=== PATIENT | female | born 1950 | race Caucasian/White ===

== ENCOUNTER → 2017-11-02 15:25 | Outpatient (CLI) | payer MEDICARE, OTHER, SELFPAY ==
[2017-11-02 17:19] LABS: Absolute Lymphocyte Count 3.08 X10^3/ul (0.83-4.51); Absolute Neutrophil Count 4.6 X10^3/uL (2.0-7.7); Basophil# 0.04 X10^3/uL; Basophil% 0.5 % (0-1); Eosinophils% 1.2 % (0-5); Hematocrit 43.3 % (37-47); Lymphocyte # 3.08 X10^3/ul (4.0); Lymphocyte % 36.1 % (19-41); Mean Corp Hgb Conc 32.3 g/gl (32-36); Mean Corpuscular Hgb 29.6 pg (27.0-32.0); Mean Corpuscular Volume 91.5 fL (81-99); Mean Platelet Vol. 10.7 fl (6.2-12.0); Monocyte# 0.68 X10^3/uL; Neutrophil # 4.57 X10^3/uL (2.7-7.7); Neutrophil % 53.4 % (47-70); Platelet Count 305 K/mm3 (150-450); RBC Distribution Width CV 16.1 % (11.6-14.6); RBC Distribution Width SD 53.4 fl (35.1-43.9); Red Blood Count 4.73 M/mm3 (4.2-5.4); White Blood Count 8.5 K/mm3 (4.4-11.0)
[2017-11-02 17:30] LABS: POSITIVE COUNT NO; POSITIVE DIFFERENTIAL NO; POSITIVE MORPHOLOGY NO
[2017-11-02 17:31] LABS: ALB/GLOB Ratio 0.9 RATIO (0.9-2.4); AST(SGOT) 17 U/L (15-37); Alanine Aminotransfer ALT/SGPT 25 U/L (13-56); Albumin, Serum 3.2 g/dL (3.2-5.0); Alkaline Phosphatase 105 U/L (45-117); Anion Gap 9 (5-15); BUN 24 mg/dL (7-18); BUN/Creat Ratio 19.8 RATIO (10-20); Calcium,Total 8.4 mg/dL (8.5-10.1); Chloride 110 mmol/L (98-107); Creatinine, Serum 1.21 mg/dL (0.55-1.02); EST Glomerular Filtration Rate 47 mL/min (>60); Est Glom Filt Rate - Afr Amer 57 mL/min (>60); Globulin 3.4 g/dL (2.2-4.2); Glucose 87 mg/dL (74-106); Potassium 4.5 mmol/L (3.5-5.1); Protein, Total 6.6 g/dL (6.4-8.2); Sodium Level 142 mmol/L (136-145); Thyroid Stim Hormone (TSH) 1.81 uIU/mL (0.358-3.74)
[2017-11-04 10:39] LABS: Vitamin D,25 Hydroxy 12.2 ng/mL (19.95-100.01)
[2017-11-04 15:01] LABS: Hep C Antibodies <0.1 s/co ratio (0.0-0.9)
== END ==
PROVIDERS: Family Provider Family Medicine Geriatric Medicine; PCP Family Medicine Geriatric Medicine; Visit Provider Family Medicine Geriatric Medicine
DX: I10 Essential (primary) hypertension (principal); E55.9 Vitamin D deficiency, unspecified; Z13.89 Encounter for screening for other disorder
CPT/HCPCS: 36415; 80053; 82306; 84443; 85025; 86803

== ENCOUNTER → 2017-11-10 15:52 | Outpatient (CLI) | payer MEDICARE, OTHER, SELFPAY | PROVIDERS: Family Provider Family Medicine Geriatric Medicine; PCP Family Medicine Geriatric Medicine; Visit Provider Family Medicine Geriatric Medicine | DX: R68.83 Chills (without fever) (principal) | CPT/HCPCS: 87633 ==

== ENCOUNTER → 2018-07-04 12:29 | Outpatient (CLI) | payer MEDICARE, OTHER, SELFPAY ==
[2018-07-04 12:47] LABS: Hematocrit 46.4 % (37-47); Hemoglobin 14.5 g/dl (12.0-15.0); Mean Corp Hgb Conc 31.3 g/gl (32-36); Mean Corpuscular Hgb 29.7 pg (27.0-32.0); Mean Corpuscular Volume 95.1 fL (81-99); Mean Platelet Vol. 10.3 fl (6.2-12.0); Platelet Count 280 K/mm3 (150-450); RBC Distribution Width CV 14.2 % (11.6-14.6); RBC Distribution Width SD 49.7 fl (35.1-43.9); Red Blood Count 4.88 M/mm3 (4.2-5.4); White Blood Count 5.4 K/mm3 (4.4-11.0)
[2018-07-04 13:00] LABS: Absolute Neutrophil Count 3.1 X10^3/uL (2.0-7.7); Basophil# 0.01 X10^3/uL; Basophil% 0.2 % (0-1); Eosinophil# 0.06 X10^3/uL; Eosinophils% 1.1 % (0-5); Monocyte# 0.33 X10^3/uL; Monocyte% 5.9 % (0-10); Neutrophil # 3.13 X10^3/uL (2.7-7.7); Neutrophil % 56.3 % (47-70); POSITIVE COUNT NO; POSITIVE DIFFERENTIAL NO; POSITIVE MORPHOLOGY NO
[2018-07-04 13:01] LABS: Anion Gap 6 (5-15); BUN 14 mg/dL (7-18); BUN/Creat Ratio 12.4 RATIO (10-20); Calcium,Total 8.9 mg/dL (8.5-10.1); Chloride 108 mmol/L (98-107); Creatinine, Serum 1.13 mg/dL (0.55-1.02); EST Glomerular Filtration Rate 51 mL/min (>60); Est Glom Filt Rate - Afr Amer 62 mL/min (>60); Glucose 85 mg/dL (74-106); Potassium 4.3 mmol/L (3.5-5.1); Sodium Level 139 mmol/L (136-145)
--- NOTE | 2018-07-04 14:24 | CT_ITS ---
STUDY: CT ABDOMEN AND PELVIS WITH CONTRAST REASON FOR EXAM: Female, 68 years old. Abdominal pain RADIATION DOSAGE (If Supplied By Facility): CTDIvol = ( 11.43 ) mGy, DLP = ( 965.78 ) mGycm TECHNIQUE: Transaxial images were obtained from the dome of the diaphragm to the symphysis pubis without oral contrast. 100cc ml of Isovue 300 contrast was administered. Sagittal and coronal images were reconstructed. Individualized dose optimization techniques were used for this CT. COMPARISON: CT abdomen and pelvis 08/14/2010 FINDINGS: Body wall soft tissues: No acute process. 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 There is mild scoliosis and osteopenia with otherwise only mild spondylosis of the thoracolumbar spine. Inferior chest: Clear lung bases, normal distal esophagus, minimal sliding hiatal hernia, mild cardiomegaly, no pericardial effusion, epicardial lipomatosis. Hepatobiliary: Moderate intrahepatic biliary ductal ectasia, mild ectasia of the hepatic duct up to 8 mm, common duct normal measuring 6.3 mm. Prior cholecystectomy. No hepatic lesions. The intrahepatic bile duct dilatation is new compared to imaging of 2009. No obstructing lesion or calculus is observed. Pancreas: There is mild pancreatic atrophy without ductal ectasia or focal lesion. Spleen: Normal. Adrenal glands: Normal. Urogenital: Normal kidneys, symmetric nephrograms. Normal collecting systems, ureters, urinary bladder. Uterus absent. No adnexal mass or cyst or pelvic free fluid. Pelvic floor and sidewalls and retroperitoneum: No mass or adenopathy. Vasculature: No acute process. Stomach: No acute process. Small bowel and mesentery: No acute process. Large bowel: Appendix not visible. Possibly surgically absent. No acute inflammatory features in the region of the cecum. Mild sigmoid diverticulosis without diverticulitis. Normal rectum. Free fluid or free air: None. CT/Abdomen/Pelvis WITH Contrast IMPRESSION: Intrahepatic biliary ductal ectasia without ectasia of the hepatic duct or common bile duct without evidence of any focal obstructing lesion. This may be a normal physiologic adaptation over time after cholecystectomy. Correlate relative to symptoms or laboratory values of liver. No other acute abdominopelvic process is evident. Electronically Signed: Zain Smith, at 17:46 EDT Tel , Service support ,
== END ==
PROVIDERS: Family Provider Family Medicine Geriatric Medicine; PCP Family Medicine Geriatric Medicine; Referring Provider Family Medicine Geriatric Medicine; Visit Provider Family Medicine Geriatric Medicine
DX: R10.9 Unspecified abdominal pain (principal); N39.0 Urinary tract infection, site not specified
CPT/HCPCS: 36415; 74177; 80048; 85025; 87086; 87088; Q9967; A4216

== ENCOUNTER → 2018-07-07 08:04 | Outpatient (CLI) | payer MEDICARE, OTHER, SELFPAY ==
--- NOTE | 2018-07-07 08:06 | US_ITS ---
STUDY: ABDOMINAL ULTRASOUND - RIGHT UPPER QUADRANT REASON FOR VISIT: Female, 68 years old. Abdominal pain with radiation towards the back. TECHNIQUE: Ultrasound evaluation of the right upper quadrant was performed with real-time and static so-scale imaging. TECHNICAL QUALITY: Limited. Examination limited due to a combination of factors including obesity and bowel gas. COMPARISON: Comparison is made with prior CT scan of the abdomen dated July 04, 2018. FINDINGS: Liver: The liver measures 13.3 cm. There is normal echogenicity of the liver. The bile ducts are within normal limits. There is hepatic color flow. The direction of portal flow is hepatopetal. There is no demonstrated mass lesion. Gallbladder: The patient is status post cholecystectomy. Common Bile Duct (C.B.D.): The common bile duct measures 9.3 mm. Pancreas: Normal size of the head, body and tail of the pancreas. There is normal echogenicity of the pancreas. There is no demonstrated pancreatic mass or cyst. Right Kidney: Normal size of the right kidney. The right kidney measures 10 cm x 4.7 cm x 4.3 cm. Normal renal cortex. The right cortex measures 1.4 cm. There is no demonstrated renal mass or cyst. There is no right hydronephrosis. US/Liver IMPRESSION: Mildly dilated common bile duct. Electronically Signed: Velasquez Hughes MD at 14:22 EDT Tel [phone], Service support ,
== END ==
PROVIDERS: Family Provider Family Medicine Geriatric Medicine; PCP Family Medicine Geriatric Medicine; Referring Provider Family Medicine Geriatric Medicine; Visit Provider Family Medicine Geriatric Medicine
DX: R10.9 Unspecified abdominal pain (principal)
CPT/HCPCS: 76705

== ENCOUNTER → 2018-11-09 14:15 | Outpatient (CLI) | payer MEDICARE, OTHER, SELFPAY ==
[2017-04-23 10:36] VITALS: BMI 31.9
[2018-11-09 15:28] LABS: Absolute Lymphocyte Count 2.36 X10^3/ul (0.83-4.51); Absolute Neutrophil Count 2.7 X10^3/uL (2.0-7.7); Basophil# 0.02 X10^3/uL; Basophil% 0.4 % (0-1); Eosinophil# 0.07 X10^3/uL; Eosinophils% 1.3 % (0-5); Hematocrit 47.4 % (37-47); Hemoglobin 14.5 g/dl (12.0-15.0); Lymphocyte # 2.36 X10^3/ul (4.0); Lymphocyte % 43.2 % (19-41); Mean Corp Hgb Conc 30.6 g/gl (32-36); Mean Corpuscular Hgb 28.4 pg (27.0-32.0); Mean Corpuscular Volume 92.8 fL (81-99); Mean Platelet Vol. 10.3 fl (6.2-12.0); Monocyte# 0.32 X10^3/uL; Monocyte% 5.9 % (0-10); Neutrophil # 2.66 X10^3/uL (2.7-7.7); Neutrophil % 48.7 % (47-70); POSITIVE COUNT NO; POSITIVE DIFFERENTIAL NO; POSITIVE MORPHOLOGY NO; Platelet Count 254 K/mm3 (150-450); RBC Distribution Width CV 14.1 % (11.6-14.6); RBC Distribution Width SD 47.8 fl (35.1-43.9); Red Blood Count 5.11 M/mm3 (4.2-5.4); White Blood Count 5.5 K/mm3 (4.4-11.0)
[2018-11-09 16:07] LABS: ALB/GLOB Ratio 1.1 RATIO (0.9-2.4); AST(SGOT) 25 U/L (15-37); Alanine Aminotransfer ALT/SGPT 32 U/L (13-56); Albumin, Serum 3.5 g/dL (3.2-5.0); Alkaline Phosphatase 134 U/L (45-117); Anion Gap 11 (5-15); BUN 21 mg/dL (7-18); BUN/Creat Ratio 18.8 RATIO (10-20); Calcium,Total 8.7 mg/dL (8.5-10.1); Chloride 110 mmol/L (98-107); Creatinine, Serum 1.12 mg/dL (0.55-1.02); EST Glomerular Filtration Rate 52 mL/min (>60); Est Glom Filt Rate - Afr Amer 62 mL/min (>60); Globulin 3.2 g/dL (2.2-4.2); Glucose 81 mg/dL (74-106); Potassium 4.2 mmol/L (3.5-5.1); Protein, Total 6.7 g/dL (6.4-8.2); Sodium Level 144 mmol/L (136-145); Thyroid Stim Hormone (TSH) 2.49 uIU/mL (0.358-3.74)
[2018-11-09 16:35] LABS: Vitamin D,25 Hydroxy 8.1 ng/mL (29.95-100.01)
== END ==
PROVIDERS: Family Provider Family Medicine Geriatric Medicine; PCP Family Medicine Geriatric Medicine; Visit Provider Family Medicine Geriatric Medicine
DX: I10 Essential (primary) hypertension (principal); E55.9 Vitamin D deficiency, unspecified
CPT/HCPCS: 36415; 80053; 82306; 84443; 85025

== ENCOUNTER → 2019-04-16 10:36 | Outpatient (CLI) | payer MEDICARE, OTHER, SELFPAY ==
[2017-04-23 10:36] VITALS: BMI 31.9
[2019-04-19 14:08] LABS: Lyme IgG P18 Ab Present (.); Lyme IgG P23 Ab Absent (.); Lyme IgG P28 Ab Present (.); Lyme IgG P30 Ab Absent (.); Lyme IgG P39 Ab Absent (.); Lyme IgG P41 Ab Present (.); Lyme IgG P45 Ab Absent (.); Lyme IgG P58 Ab Absent (.); Lyme IgG P66 Ab Absent (.); Lyme IgG P93 Ab Absent (.); Lyme IgM P23 Ab Absent (.); Lyme IgM P39 Ab Absent (.); Lyme IgM P41 Ab Absent (.)
[2019-04-20 16:00] LABS: Lyme IgG WB Interpretation Negative (.); Lyme IgM WB Interpretation Negative (.)
== END ==
PROVIDERS: Family Provider Family Medicine Geriatric Medicine; PCP Family Medicine Geriatric Medicine; Visit Provider Family Medicine Geriatric Medicine
DX: A69.20 Lyme disease, unspecified (principal)
CPT/HCPCS: 36415; 86617

== ENCOUNTER → 2019-04-20 12:03 | Outpatient (CLI) | payer MEDICARE, OTHER, SELFPAY ==
[2017-04-23 10:36] VITALS: BMI 31.9
[2019-04-20 18:36] LABS: Absolute Lymphocyte Count 2.45 X10^3/uL (0.83-4.51); Absolute Neutrophil Count 2.9 X10^3/uL (2.0-7.7); Basophil# 0.04 X10^3/uL; Basophil% 0.7 % (0-1); Eosinophil# 0.15 X10^3/uL; Eosinophils% 2.5 % (0-5); Hematocrit 49.6 % (37-47); Hemoglobin 15.3 g/dL (12.0-15.0); Lymphocyte # 2.45 X10^3/ul (4.0); Mean Corp Hgb Conc 30.8 g/dL (32-36); Mean Corpuscular Hgb 28.9 pg (27.0-32.0); Mean Corpuscular Volume 93.6 fL (81-99); Mean Platelet Vol. 10.8 fl (6.2-12.0); Monocyte# 0.37 X10^3/uL; Monocyte% 6.2 % (0-10); NRBC Flagged by Analyzer 0 % (0-5); Neutrophil # 2.88 X10^3/uL (2.7-7.7); Neutrophil % 48.3 % (47-70); Platelet Count 287 K/mm3 (150-450); RBC Distribution Width CV 14.5 % (11.6-14.6); RBC Distribution Width SD 49.6 fl (35.1-43.9)
[2019-04-20 19:07] LABS: ALB/GLOB Ratio 1.1 RATIO (0.9-2.4); AST(SGOT) 17 U/L (15-37); Alanine Aminotransfer ALT/SGPT 23 U/L (13-56); Albumin, Serum 3.7 g/dL (3.2-5.0); Alkaline Phosphatase 157 U/L (45-117); Anion Gap 4 (5-15); BUN 19 mg/dL (7-18); BUN/Creat Ratio 15.8 RATIO (10-20); Calcium,Total 9.2 mg/dL (8.5-10.1); Chloride 106 mmol/L (98-107); EST Glomerular Filtration Rate 48 mL/min (>60); Est Glom Filt Rate - Afr Amer 58 mL/min (>60); Globulin 3.5 g/dL (2.2-4.2); Glucose 89 mg/dL (74-106); Potassium 4.5 mmol/L (3.5-5.1); Protein, Total 7.2 g/dL (6.4-8.2); Sodium Level 139 mmol/L (136-145); Thyroid Stim Hormone (TSH) 2.02 uIU/mL (0.358-3.74)
== END ==
PROVIDERS: Family Provider Family Medicine Geriatric Medicine; PCP Family Medicine Geriatric Medicine; Visit Provider Family Medicine Geriatric Medicine
DX: R53.83 Other fatigue (principal)
CPT/HCPCS: 36415; 80053; 84443; 85025

== ENCOUNTER → 2019-06-22 11:38 | Outpatient (CLI) | payer MEDICARE, OTHER, SELFPAY ==
[2017-04-23 10:36] VITALS: BMI 31.9
== END ==
PROVIDERS: Family Provider Family Medicine Geriatric Medicine; PCP Family Medicine Geriatric Medicine; Referring Provider Family Medicine Geriatric Medicine; Visit Provider Family Medicine Geriatric Medicine
DX: R68.83 Chills (without fever) (principal)
CPT/HCPCS: 87633

== ENCOUNTER → 2020-09-18 11:04 | Outpatient (CLI) | payer MEDICARE, OTHER, SELFPAY ==
[2020-08-06 07:34] VITALS: BMI 32.1
[2020-09-18 11:27] LABS: Absolute Lymphocyte Count 2.56 X10^3/uL (0.83-4.51); Basophil# 0.04 X10^3/uL; Basophil% 0.8 % (0-1); Eosinophil# 0.14 X10^3/uL; Eosinophils% 2.7 % (0-5); Hematocrit 44.8 % (37-47); Lymphocyte # 2.56 X10^3/ul (4.0); Lymphocyte % 49.9 % (19-41); Mean Corp Hgb Conc 31.3 g/dL (32-36); Mean Corpuscular Hgb 28.3 pg (27.0-32.0); Mean Corpuscular Volume 90.5 fL (81-99); Monocyte# 0.41 X10^3/uL; NRBC Flagged by Analyzer 0 % (0-5); Neutrophil # 1.95 X10^3/uL (2.7-7.7); Platelet Count 308 K/mm3 (150-450); RBC Distribution Width CV 14.5 % (11.6-14.6); RBC Distribution Width SD 47.5 fl (35.1-43.9); Red Blood Count 4.95 M/mm3 (4.2-5.4); White Blood Count 5.1 K/mm3 (4.4-11.0)
[2020-09-18 11:42] LABS: Vitamin D,25 Hydroxy 18.9 ng/mL
[2020-09-18 11:47] LABS: ALB/GLOB Ratio 1.2 RATIO (0.9-2.4); AST(SGOT) 16 U/L (15-37); Alanine Aminotransfer ALT/SGPT 24 U/L (13-56); Albumin, Serum 3.8 g/dL (3.2-5.0); Alkaline Phosphatase 101 U/L (45-117); Anion Gap 5 (5-15); BUN 21 mg/dL (7-18); BUN/Creat Ratio 17.5 RATIO (10-20); Calcium,Total 8.9 mg/dL (8.5-10.1); Chloride 109 mmol/L (98-107); EST Glomerular Filtration Rate 47 mL/min (>60); Est Glom Filt Rate - Afr Amer 57 mL/min (>60); Globulin 3.2 g/dL (2.2-4.2); Glucose 91 mg/dL (74-106); Potassium 4.5 mmol/L (3.5-5.1); Sodium Level 140 mmol/L (136-145); Thyroid Stim Hormone (TSH) 1.87 uIU/mL (0.358-3.74)
== END ==
PROVIDERS: PCP Family Medicine Geriatric Medicine; Visit Provider Family Medicine Geriatric Medicine
DX: E55.9 Vitamin D deficiency, unspecified (principal); I10 Essential (primary) hypertension
CPT/HCPCS: 36415; 80053; 82306; 84443; 85025

== ENCOUNTER → 2020-09-23 09:54 | Outpatient (CLI) | payer MEDICARE, OTHER, SELFPAY ==
[2020-08-06 07:34] VITALS: BMI 32.1
== END ==
PROVIDERS: PCP Family Medicine Geriatric Medicine; Visit Provider Family Medicine Geriatric Medicine
DX: N39.0 Urinary tract infection, site not specified (principal)
CPT/HCPCS: 87086; 87088

== ENCOUNTER → 2021-05-05 15:05 | Outpatient (CLI) | payer MEDICARE, OTHER, SELFPAY ==
[2021-05-05 18:34] LABS: M R Staph aureus DNA By PCR Negative (Negative); Probe Check PASS; Specimen Processing Control PASS; Staph aureus DNA By PCR NEGATIVE (Negative)
== END ==
PROVIDERS: PCP Family Medicine Geriatric Medicine; Visit Provider Family Medicine Geriatric Medicine
DX: T14.90XA Injury, unspecified, initial encounter (principal); B95.62 Methicillin resistant Staphylococcus aureus infection as the cause of diseases classified elsewhere
CPT/HCPCS: 87070; 87077; 87186; 87205; 87640

== ENCOUNTER 2021-05-08 07:37 | Outpatient (RCR) | payer MEDICARE, OTHER, SELFPAY ==
[2021-05-08 08:52] VITALS: BP 185/94; PULSE 70; TEMP 35.7
--- NOTE | 2021-05-08 11:58 | HP.PCM_ITS ---
History of Present Illness Date of Service: 05/08/21 Chief Complaint: R forearm wound History of Wound: The patient is a pleasant 71 year old female without significant past medical history who presents to the wound healing center today for evaluation of a right forearm wound. She denies any history of cardiac disease or type 2 diabetes mellitus. She denies any prescription medications. She states that on 04/26/2021, she was scratched by her neighbors puppy on both arms. The dog was current on his vaccinations. The scratches on her left forearm healed without complications. She was using Neosporin on the bilateral forearm scratches. However, after approximately 1 week of no improvement in her right forearm scratch, she followed up with her primary care provider, Dr. Amaya. She had redness and swelling of her right forearm at that time. She was started on ciprofloxacin x7 days and clindamycin x7 days. Her swelling and redness of her forearm has since diminished. A culture was collected by Dr. Amaya. Preliminary results show no growth. MRSA and SA DNA assays are negative. She was given bacitracin ointment to use on the right forearm. She did not feel this was as beneficial as Neosporin, and resumed use of Neosporin daily. The patient denies fever, chills, general malaise, or poor appetite. The patient has not had increased redness, swelling, or purulent/malodorous drainage from affected area. 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 Home Medications clindamycin HCl 300 mg capsule 300 mg PO TID #30 cap 08/06/20 [Rx Last Taken Unknown] multivitamin 1 cap PO DAILY 08/06/20 [History Last Taken Unknown] mv-min-vit C-ascorb Qm-Seh-Uep-herb #124 333 mg-1.7 mg chewable tablet tab PO 08/06/20 [History Last Taken Unknown] zicam PO 08/06/20 [History Last Taken Unknown] dextromethorphan-guaifenesin 10 mg-100 mg/5 mL oral liquid 10 ml PO Q4H PRN #500 ml 04/14/21 [Rx Last Taken Unknown] Allergy/AdvReac Type Severity Reaction Status Date / Time azithromycin Allergy unknown Verified 04/14/21 11:48 doxycycline [From Vibramycin] Allergy Other Verified 04/14/21 11:48 Penicillins Allergy Rash Verified 04/14/21 11:48 Sulfa (Sulfonamide Allergy Rash Verified 04/14/21 11:48 Antibiotics) erythromycin base AdvReac Upset Verified 04/14/21 11:48 Stomach Surgical History (Updated 08/06/20 @ 07:39 by Jaimie Lowe) History of appendectomy History of cholecystectomy History of hysterectomy Social History (Updated 08/06/20 @ 07:51 by Dimitri GUZMAN, PA) Smoking Status: Never smoker alcohol intake: never ROS Constitutional Constitutional: Denies chills, fever(s) or night sweats Eyes Eyes: Denies change in vision or double vision ENT HEENT: Denies lip swelling or tongue swelling Cardiovascular Cardiovascular: Reports leg edema; Denies chest pain or palpitations Respiratory/Chest Respiratory/Chest: Denies cough, shortness of breath at rest, shortness of breath with exertion or wheezing Gastrointestinal Gastrointestinal: Denies diarrhea, nausea or vomiting Genitourinary Genitourinary: Denies dysuria or hematuria Musculoskeletal Musculoskeletal: Denies abnormal gait, extremity pain, muscle weakness, numbness or tingling Integumentary Integumentary: Reports wounds; Denies rash Neurologic Neurologic: Denies abnormal gait, abnormal speech or focal weakness Endocrine Endocrinology: Denies cold intolerance, heat intolerance, polydipsia or polyuria Hematologic/Lymphatic Hematologic/Lymphatic: Denies easy bleeding or easy bruising Vital Signs Vital Signs Vital Signs: 05/08/21 08:52 Temperature 96.2 F L Temperature Source Temporal Pulse Rate 70 Blood Pressure 185/94 H Blood Pressure Mean 124 Blood Pressure Source Monitor Physical Exam Const alert, no apparent distress and healthy appearing General Appearance: cooperative, comfortable and well kempt HEENT Head and Scalp: normocephalic and atraumatic Eyes EOMs intact bilaterally Neck supple and no JVD Resp normal respiratory effort, normal air movement and no use of accessory muscles Auscultation: clear to auscultation bilaterally; Negative for crackles, rales, rhonchi or wheezes Cardio regular rate and regular rhythm GI normal to inspection, nondistended, normoactive bowel sounds Extremity normal capillary refill and no joint enlargement General Extremity: edema bilateral lower extremity Details: trace Skin Wounds: wounds noted No malodorous Wound Narrative: Small subcutaneous ulcer of right forearm, with scant slough and devitalized tissue. No tunneling, undermining, or probing to bone. No periulcer erythema or warmth. No periulcer tenderness. No purulent or malod orous drainage. Neuro oriented x3, moves all extremities and no focal motor deficits Psych mental status grossly normal, cooperative and affect normal Debridement Note Debridement Note Post-Debridement Measurements and Additional Note: Post-Debridement Measurements/Treatment - Nurse 1 - General Ulcer Assessment Start: 05/08/21 08:51 Freq: Status: Active Protocol: VIGNESH.LOWEXT Activity Type Activity Date Activity User E-Sign Co-Sign Detail Recorded Client Recorded Date Recorded By Document 05/08/21 08:52 RADHA [id number] 05/08/21 08:55 RADHA 05/08/21 08:52 - Today's Visit Information Type of service Initial Visit Arrival Mode Ambulatory Patient Identification Verified (Name & Yes ) Vital Signs Temperature (97.8 F-99.1 F) 96.2 F L Temperature Source Temporal Pulse Rate (60-100) 70 Blood Pressure (90/60-120/80) 185/94 H Blood Pressure Mean 124 Source Monitor History Since Last Visit- (Skip if this is Patient's initial visit) Have you changed medications since your No last visit? Any new allergies or adverse reactions No Had a fall/change in ADL's that may No increase risk of falls Signs or symptoms of abuse and/or No neglect since last visit Have you been in the hospital since your No last visit? Has dressing in place as prescribed Yes Has compression in place as prescribed No Has offloadiing in place as prescribed No Experienced any changes in pain level or No management Left Footwear Regular Shoe Right Footwear Regular Shoe Teaching Assessment Preferences Verbal,Written Barriers to Learning None Readiness To Learn Excellent Willingness to Engage in Self Management High Activies Readiness to Engage in Self Management High Activities Anxiety Level Calm Cooperation Cooperative Perception Coherent Interest in Health Problem Asks Questions Education Importance Acknowledges Need Does Patient Smoke tobacco or other No substances Culture/Nondenominational/Cigarette Tester Cultural/Nondenominational Needs that may affect No Treatment Plan Would you allow our hospital reserve operator to Yes meet you for the purpose of spiritual/ emotional support? Cigarette Tester to contact place of zoroastrianism No WC - Nurse 1 - General Ulcer Measurement Start: 05/08/21 08:51 Freq: Status: Active Protocol: Activity Type Activity Date Activity User E-Sign Co-Sign Detail Recorded Client Recorded Date Recorded By Document 05/08/21 08:52 RADHA [id number] 05/08/21 08:55 AK 05/08/21 08:52 Wound Center Nurse 1 #1 Right forearm -Current Size (cm) - Length 0.6 -Current Size (cm) - Width 0.5 -Current Size (cm) - Depth 0.1 -Total Square Cm 0.30 -Date of Last Picture (Recall this 05/08/21 field) -Photo Taken Yes -Epithelialization None Present -Tunneling No -Undermining/Tunneling No -Circular Undermining No -Exudate Amt Large -Exudate Type Serosanguineous -Wound Margin Distinct, Outline Attached -Granulation Amt None Present (0 %) -Necrosis Amt Large (67-100%) -Necrotic Tissue Type Adherent Slough -Texture (Latisha-wound Skin Appearance) No Abnormality, Assessed -Moisture (Latisha-wound Skin Appearance) No Abnormality, Assessed -Color (Latisha-wound Skin Appearance) No Abnormality, Assessed -Temperature (Latisha-wound Skin No Abnormality Appearance) (Pt Warm) -Tenderness on Palpation (Latisha-wound Yes Skin Appearance) -Ulcer Cleansing Rinsed/ Irrigated with Saline -Anesthetic Used 5% Lidocaine Gel - Nurse 3 - General Ulcer D/C NN Start: 05/08/21 08:51 Freq: Status: Active Protocol: Activity Type Activity Date Activity User E-Sign Co-Sign Detail Recorded Client Recorded Date Recorded By Document 05/08/21 08:59 NEIDA [id number] 05/08/21 08:59 NEIDA 05/08/21 08:59 Wound Care Nurse 3 -Primary Dressing Applied Promogran -Primary Dressing Covered/Secured with Dry Gauze,Dry Gauze & Roll Gauze,Secured with Tape -Promogran 1 Pain Scale: 0-10 Numeric Is Patient Pain Free? Yes WC - Visit Discharge Discharge Condition Stable Ambulatory Status Ambulatory Transportation Private Auto Wound debrided: Right forearm ulcer Laterality: Right Type of Debridement: Excisional debridement Anesthesia Used: 5% Lidocaine Gel Depth: in the subcutaneous layer Percentage of wound debrided: 100 Instrument Used: 3mm curette Tissue Removed: Slough and devitalized tissue Severity: Fat Layer Exposed Amount of bleeding with debridement: Mild Bleeding Controlled with: Pressure Patient tolerated procedure: Patient tolerated procedure well Charges/Coding Visit Charges Office Visits / Consults: 27838 OV L4 Est Procedures Integumentary [id number]: [id number] Viviana subq tissue 20 sq cm/< Assessment/Plan Assessment/Plan (1) 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 Promogran applied. At home wound-care instructions: Change Promogran dressing once daily or more frequently as needed due to contamination. Wash wounds daily with antibacterial soap and water, rinse and dry thoroughly before each dressing change. Avoid soaking/submerging wound in tub/pool of water. Compression: Wrap right forearm with Kerlix or Coban for light compression. Off-loading: The patient was instructed to avoid pressure and friction on the affected areas. Diet: Patient encouraged to increase protein intake while taking caution to avoid high carbohydrate and/or sugar intake. Labs/cultures/imaging: Culture results reviewed: Preliminary results reveal no growth. Lab work deferred at this time. Labs from September 2020 reviewed as annotated above. Follow-up: Return to clinic in 2 weeks for re-evaluation. Return sooner or report to the emergency room should symptoms worsen, or new symptoms arise. Note: [employer] speech recognition assembly operator software was used to create portions of this document. Sound-alike and misspelled words, as well as other assembly operator errors may be contained in the documentation.
== END 2021-05-12 23:59 ==
LOC: WC 07:37
PROVIDERS: PCP Family Medicine Geriatric Medicine; Visit Provider Nurse Practitioner Family
DX: L98.492 Non-pressure chronic ulcer of skin of other sites with fat layer exposed (principal); S40.811D Abrasion of right upper arm, subsequent encounter; I10 Essential (primary) hypertension; M19.90 Unspecified osteoarthritis, unspecified site
CPT/HCPCS: 11042; 99213; G0463

== ENCOUNTER 2021-05-22 09:00 | Outpatient (RCR) | payer MEDICARE, OTHER, SELFPAY ==
[2021-05-13 00:45] VITALS: BP 185/94; PULSE 70; TEMP 35.7
[2021-05-22 09:03] VITALS: BP 149/53; PULSE 68; TEMP 36.2
--- NOTE | 2021-05-22 13:35 | PN.PCM_ITS ---
History of Present Illness Date of Service: 05/22/21 Chief Complaint: R forearm wound History of Wound: The patient is a pleasant 71 year old female without significant past medical history who presents to the wound healing center today for evaluation of a right forearm wound. She denies any history of cardiac disease or type 2 diabetes mellitus. She denies any prescription medications. She states that on 04/26/2021, she was scratched by her neighbors puppy on both arms. The dog was current on his vaccinations. The scratches on her left forearm healed without complications. She was using Neosporin on the bilateral forearm scratches. However, after approximately 1 week of no improvement in her right forearm scratch, she followed up with her primary care provider, Dr. Amaya. She had redness and swelling of her right forearm at that time. She was started on ciprofloxacin x7 days and clindamycin x7 days. Her swelling and redness of her forearm has since diminished. A culture was collected by Dr. mAaya. Preliminary results show no growth. MRSA and SA DNA assays are negative. She was given bacitracin ointment to use on the right forearm. She did not feel this was as beneficial as Neosporin, and resumed use of Neosporin daily. The patient denies fever, chills, general malaise, or poor appetite. The patient has not had increased redness, swelling, or purulent/malodorous drainage from affected area. Her most recent blood work from September 2020 demonstrated the following: CBCD: Unremarkable CMP: BUN 21 (H), creatinine 1.20 (H), estimated GFR 47 (L) TSH: Normal Vitamin D: Insufficient Progress of Wound: The patient's right forearm wound is healed today. Objective Data Objective Data Vital Signs: Vital Signs Temp Pulse BP 97.2 F L 68 149/53 H 05/22/21 09:03 05/22/21 09:03 05/22/21 09:03 Charges/Coding Visit Charges Office Visits / Consults: [id number] OV L3 Est Physical Exam Const alert, no apparent distress and healthy appearing General Appearance: cooperative, comfortable and well kempt HEENT Head and Scalp: normocephalic and atraumatic Neck supple Resp normal respiratory effort, normal air movement and no use of accessory muscles Extremity normal capillary refill Skin Wounds: Negative for wounds noted Wound Narrative: Right forearm wound is healed. 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 She was instructed to protect the previous wound site, as the skin will be fragile for several weeks. Wash daily with antibacterial soap and water. If she experiences new wounds, or reopening of her previous wounds, she was instructed to follow-up with the wound healing center. Note: [employer] speech recognition traffic representative software was used to create portions of this document. Sound-alike and misspelled words, as well as other traffic representative errors may be contained in the documentation.
== END 2021-05-22 10:04 | disposition home or self-care (01) ==
LOC: WC 09:00
PROVIDERS: PCP Family Medicine Geriatric Medicine; Visit Provider Nurse Practitioner Family
DX: L98.492 Non-pressure chronic ulcer of skin of other sites with fat layer exposed (principal); S40.811D Abrasion of right upper arm, subsequent encounter
CPT/HCPCS: 99213; G0463

== ENCOUNTER 2021-08-22 08:52 | Inpatient (IN) | payer MEDICARE, OTHER, SELFPAY ==
[2021-08-22] VITALS (14 sets, daily range): BP systolic 101–123; BP diastolic 59–88; PULSE 60–86; RESP 14–20; TEMP 35.8–37; O2SAT 86–100; BMI 34.3; BMI 32.7
--- NOTE | 2021-08-22 09:17 | EX.ED.DYSGE1 ---
HPI History of Present Illness Chief Complaint: Alt LOC Narrative Narrative: 71-year-old female presenting with shortness of breath. Apparently she has been ill for about 9 days. Patient states she started with a sore throat and a cough. She expresses that she has extreme fatigue. She states that other than being rundown she has not had any major symptoms. She denies chest pain. She is unsure if she had fevers. Patient was not vaccinated for COVID-19. She has not been tested yet for COVID-19. Apparently the patient's friend called her because she has been calling every day and she did not get a reply back. She has been calling her back every day and this time was suspicious. She called EMS to go to her house. Upon knocking on the door the patient was able to get up and ambulate down to the doorway but nearly collapsed. Her pulse ox was found to be in the 70s at that time. Patient was placed on oxygen and her oxygen is improving. She was a little bit confused but now is alert and oriented x3. 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 Home Medications clindamycin HCl 300 mg capsule 300 mg PO TID #30 cap 08/06/20 [Rx Last Taken Unknown] multivitamin 1 cap PO DAILY 08/06/20 [History Last Taken Unknown] mv-min-vit C-ascorb Kl-Yck-Bpn-herb #124 333 mg-1.7 mg chewable tablet 1 tab PO DAILY 08/06/20 [History Last Taken Unknown] zicam PO 08/06/20 [History Last Taken Unknown] dextromethorphan-guaifenesin 10 mg-100 mg/5 mL oral liquid 10 ml PO Q4H PRN #500 ml 04/14/21 [Rx Last Taken Unknown] Allergy/AdvReac Type Severity Reaction Status Date / Time azithromycin Allergy unknown Verified 08/22/21 09:02 doxycycline [From Vibramycin] Allergy Other Verified 08/22/21 09:02 Penicillins Allergy Rash Verified 08/22/21 09:02 Sulfa (Sulfonamide Allergy Rash Verified 08/22/21 09:02 Antibiotics) erythromycin base AdvReac Upset Verified 08/22/21 09:02 Stomach Surgical History History of appendectomy History of cholecystectomy History of hysterectomy Social History (Updated 08/06/20 @ 07:51 by Dimitri GUZMAN, PA) Smoking Status: Never smoker alcohol intake: never ROS ROS ED Constitutional Constitutional ED: Reports chills; Denies fever(s) Eyes Eyes: Denies blurry vision or diplopia ENT ENT ED: Reports sore throat Cardiovascular Cardiovascular: Denies chest pain Respiratory/Chest Respiratory/Chest: Reports cough and dyspnea Gastrointestinal Gastrointestinal: Denies abdominal pain or nausea Genitourinary Genitourinary ED: Denies dysuria or hematuria Musculoskeletal Musculoskeletal: Reports myalgias; Denies arthralgias Integumentary Denies rash Neurologic Neurologic: Reports headache(s); Denies paresthesias or weakness EXAM Physical Exam Const Vital Signs: 08/22/21 08:56 08/22/21 09:01 08/22/21 09:02 Temperature 98.6 F 98.6 F Temperature Source Oral Oral Pulse Rate 81 86 Respiratory Rate 18 20 H Blood Pressure 112/83 H 112/83 H Blood Pressure Mean 92 92 Pulse Ox 86 96 95 Oxygen Delivery Method Room Air Nasal Cannula Nasal Cannula Oxygen Flow Rate (L/min) 6 6 08/22/21 09:29 08/22/21 09:33 08/22/21 10:59 Temperature 98.3 F 97.8 F Temperature Source Oral Temporal Pulse Rate 79 71 Respiratory Rate 19 H 14 Blood Pressure 101/68 107/68 Blood Pressure Mean 79 81 Pulse Ox 95 100 Oxygen Delivery Method Nasal Cannula Nasal Cannula Oxygen Flow Rate (L/min) 3 08/22/21 12:23 08/22/21 12:31 Temperature 97.8 F 97.9 F Temperature Source Temporal Temporal Pulse Rate 71 79 Respiratory Rate 18 15 Blood Pressure 122/88 H 123/78 H Blood Pressure Mean 99 93 Pulse Ox 95 95 Oxygen Delivery Method Nasal Cannula Nasal Cannula Oxygen Flow Rate (L/min) 3 3 Positive well nourished General Appearance ED: NAD HEENT Reports dry mucous membranes Negative for trauma Mouth ED: Yes dry mucous membranes Mouth: dry mucous membranes Eyes PERRL and EOMs intact bilaterally Neck no lymphadenopathy and supple Resp normal respiratory effort Auscultation: rales right base and left base Cardio regular rate and regular rhythm GI normal to inspection, nondistended, normoactive bowel sounds Neuro oriented x3 and CN's II-XII intact bilaterally Sensorium / Orientation: alert Motor Exam: strength 5/5 throughout MDM MDM MDM Narrative Medical decision making narrative: Patient presented with hypoxia and altered mental status which is improved since he is been on oxygen. She states that she started feeling ill about 9 days ago. She does not report a fever. She states has been rundown but not significantly short of breath until today. She was able to ambulate downstairs to answer the door for EMS where they found her to be very weak and altered as well as hypoxic into the 70s. Patient does not report any chest pain. Currently sitting in the bed she is alert and awake and oriented x3. EKG on my interpretation shows a normal sinus rhythm with a ventricular rate of 82 bpm. CBC shows no leukocytosis or leukopenia. Patient is not lymphopenic. PT and INR normal. Creatinine slightly elevated 1.35 otherwise electrolytes are normal. Patient has an isolated ALT elevation of 38 but otherwise her LFTs are normal. Lactic acid 3.1. This is likely due to her hypoxia as well several blood work looks normal. Urinalysis is negative. This does not appear to be sepsis. Covid testing was positive today. Chest x-ray my interpretation shows bilateral pneumonia. The radiologist does agree. I obtained a CTA to rule out PE due to her low pulse ox and this is negative for PE or dissection but does show bilateral pneumonia. Given her low pulse ox and oxygen demand I feel she would benefit from inpatient treatment. Patient is amenable to this. Discussed with hospitalist for admission. Impression: 1. Hypoxic respiratory failure 2. COVID-19 pneumonitis 3. Lactic acidosis Lab Data Attestation: I reviewed the patient's lab results. Labs: Laboratory Results - last 24 hr 08/22/21 08/22/21 08/22/21 09:03 09:03 09:03 WBC 4.7 RBC 5.32 Hgb 14.9 Hct 47.0 MCV 88.3 MCH 28.0 MCHC 31.7 L RDW Std Deviation 45.7 H RDW Coeff of Dayo 14.2 Plt Count 228 MPV 10.1 Immature Gran % (Auto) 1.500 H Neut % (Auto) 59.9 Lymph % (Auto) 34.5 [place] % (Auto) 3.9 Eos % (Auto) 0.0 Baso % (Auto) 0.2 Absolute Neuts (auto) 2.8 Absolute Lymphs (auto) 1.61 Nucleated RBC % 0 Differential Comment SCANNED Reactive Lymphocytes 1+ PT 14.4 INR 1.2 APTT 28.4 Sodium 133 L Potassium 3.7 Chloride 100 Carbon Dioxide 21.0 Anion Gap 12 BUN 18 Creatinine 1.35 H Estim Creat Clear Calc 30.67 Est GFR (MDRD) Af Amer 50 L Est GFR (MDRD) Non-Af 41 L BUN/Creatinine Ratio 13.3 Glucose 123 H Lactic Acid Calcium 8.4 L Total Bilirubin 0.70 AST 38 H ALT 25 Alkaline Phosphatase 80 Troponin I High Sens 7 Total Protein 6.8 Albumin 3.1 L Globulin 3.7 Albumin/Globulin Ratio 0.8 L Urine Color Urine Clarity Urine pH Ur Specific [place] Urine Protein Urine Glucose (UA) Urine Ketones Urine Occult Blood Urine Nitrite Urine Bilirubin Urine Urobilinogen Ur Leukocyte Esterase Urine RBC Urine WBC Ur Squamous Epith Cells Urine Bacteria Urine Mucus 08/22/21 08/22/21 09:03 10:45 WBC RBC Hgb Hct MCV MCH MCHC RDW Std Deviation RDW Coeff of Dayo Plt Count MPV Immature Gran % (Auto) Neut % (Auto) Lymph % (Auto) [place] % (Auto) Eos % (Auto) Baso % (Auto) Absolute Neuts (auto) Absolute Lymphs (auto) Nucleated RBC % Differential Comment Reactive Lymphocytes PT INR APTT Sodium Potassium Chloride Carbon Dioxide Anion Gap BUN Creatinine Estim Creat Clear Calc Est GFR (MDRD) Af Amer Est GFR (MDRD) Non-Af BUN/Creatinine Ratio Glucose Lactic Acid 3.1 H* Calcium Total Bilirubin AST ALT Alkaline Phosphatase Troponin I High Sens Total Protein Albumin Globulin Albumin/Globulin Ratio Urine Color Yellow Urine Clarity Clear Urine pH 6.0 Ur Specific [place] 1.015 Urine Protein 30 H Urine Glucose (UA) Normal Urine Ketones 50 H Urine Occult Blood Negative Urine Nitrite Negative Urine Bilirubin Negative Urine Urobilinogen 1 H Ur Leukocyte Esterase Negative Urine RBC 0 SEEN Urine WBC 0-5 SEEN Ur Squamous Epith Cells 0 SEEN Urine Bacteria 0 SEEN Urine Mucus 0 SEEN Radiography Diagnostic Testing: Clinical Impression(s) from Imaging Studies Chest X-Ray 08/22/21 09:29 IMPRESSION: Bilateral pneumonia. at 1001 Reported and signed by: Tr Wang MD Electronically Signed: Tr Wang MD at 10:00 EST Tel , Service support , Chest CTA 08/22/21 10:05 IMPRESSION: 1. Bilateral pneumonia. 2. No evidence of acute pulmonary embolism. Individualized dose optimization techniques were used for this CT. at 1157 Reported and signed by: Tr Wang MD Electronically Signed: Tr Wang MD at 11:56 EST Tel , Service support , Discharge Plan Triage Chief Complaint: Alt LOC ED Provider: Juan Miguel Valero Dx/Rx/DC Orders Prescriptions: No Action Airborne (ascorbate sodium) 333-1.7 mg tablet,chewable 1 tab PO DAILY RF: 0 zicam PO RF: 0 clindamycin HCl 300 mg capsule 300 mg PO TID Qty: 30 RF: 0 multivitamin capsule 1 cap PO DAILY RF: 0 dextromethorphan-guaifenesin [Adult Tussin Cough Congest DM] 10-100 mg/5 mL liquid 10 ml PO Q4H PRN (Reason: cough) Qty: 500 RF: 0 Primary Care Provider: Ramin Amaya Chi
--- NOTE | 2021-08-22 09:29 | RAD_ITS ---
History: hypoxia EXAMINATION/TECHNIQUE: XR Chest 1 View: Portable COMPARISON: August 31, 2016 FINDINGS: LINES/DEVICES: None. LUNGS: Mild patchy airspace opacification noted throughout both lungs consistent with pneumonia. No pneumothorax. MEDIASTINUM AND CARDIOVASCULAR STRUCTURES: Cardiac silhouette not enlarged. Central airways and mediastinal contour are unremarkable. BONES AND SOFT TISSUES: Unremarkable. RAD/Chest 1 View (Portable) IMPRESSION: Bilateral pneumonia. at 1001 Reported and signed by: Tr Wang MD Electronically Signed: Tr Wang MD at 10:00 EST Tel , Service support ,
--- NOTE | 2021-08-22 09:29 | EKG12_ITS ---
Test Reason : ALT LOC Blood Pressure : / mmHG Vent. Rate : 082 BPM Atrial Rate : 082 BPM P-R Int : 120 ms QRS Dur : 082 ms QT Int : 338 ms P-R-T Axes : 035 029 033 degrees QTc Int : 394 ms Normal sinus rhythm Nonspecific T wave abnormality Abnormal ECG Confirmed by AMILCAR CHAVEZ, JANET ([id number]), film editor VERONICA BROWN ([id number]) on 08/24/2021 10:19:36 AM Referred By: BEULAH Confirmed By:JANET FITZGERALD MD
[2021-08-22 09:38] LABS: Absolute Lymphocyte Count 1.61 X10^3/uL (0.83-4.51); Absolute Neutrophil Count 2.8 X10^3/uL (2.0-7.7); Basophil# 0.01 X10^3/uL; Basophil% 0.2 % (0-1); Hemoglobin 14.9 g/dL (12.0-15.0); Lymphocyte # 1.61 X10^3/ul (0.83-4.51); Lymphocyte % 34.5 % (19-41); Mean Corp Hgb Conc 31.7 g/dL (32-36); Mean Corpuscular Volume 88.3 fL (81-99); Mean Platelet Vol. 10.1 fl (6.2-12.0); Monocyte# 0.18 X10^3/uL; Monocyte% 3.9 % (0-10); NRBC Flagged by Analyzer 0 % (0-5); Neutrophil # 2.79 X10^3/uL (2.7-7.7); Neutrophil % 59.9 % (47-70); POSITIVE MORPHOLOGY YES; Platelet Count 228 K/mm3 (150-450); RBC Distribution Width CV 14.2 % (11.6-14.6); RBC Distribution Width SD 45.7 fl (35.1-43.9); Red Blood Count 5.32 M/mm3 (4.2-5.4); White Blood Count 4.7 K/mm3 (4.4-11.0)
[2021-08-22 09:40] LABS: Differential Indicated SCAN CRITERIA MET
[2021-08-22 09:52] LABS: International Normalized Ratio 1.2; Prothrombin Time (Protime)PT. 14.4 SECONDS (11.7-14.9)
[2021-08-22 09:53] LABS: Partial Thromboplast Time 28.4 Seconds (24.1-36.2)
[2021-08-22 09:55] LABS: Lactic Acid 3.1 mmol/L (0.4-1.9)
[2021-08-22 09:58] LABS: ALB/GLOB Ratio 0.8 RATIO (0.9-2.4); AST(SGOT) 38 U/L (15-37); Alanine Aminotransfer ALT/SGPT 25 U/L (13-56); Albumin, Serum 3.1 g/dL (3.2-5.0); Alkaline Phosphatase 80 U/L (45-117); Anion Gap 12 (5-15); BUN 18 mg/dL (7-18); BUN/Creat Ratio 13.3 RATIO (10-20); Calcium,Total 8.4 mg/dL (8.5-10.1); Chloride 100 mmol/L (98-107); Creatinine, Serum 1.35 mg/dL (0.55-1.02); EST Glomerular Filtration Rate 41 mL/min (>60); Est Glom Filt Rate - Afr Amer 50 mL/min (>60); Estimated Creatinine Clearance 30.67 ml/min; Globulin 3.7 g/dL (2.2-4.2); Glucose 123 mg/dL (74-106); Potassium 3.7 mmol/L (3.5-5.1); Protein, Total 6.8 g/dL (6.4-8.2); Sodium Level 133 mmol/L (136-145); Troponin-I HS 7 pg/mL (3.0-54.0)
[2021-08-22 10:03] LABS: Differential Comment SCANNED; Reactive Lymphocyte 1+
--- NOTE | 2021-08-22 10:05 | CT_ITS ---
EXAM: CT ANGIOGRAPHY CHEST WITHOUT AND WITH INTRAVENOUS CONTRAST : 1950 CLINICAL INDICATION: hypoxia TECHNIQUE: Helically acquired angiography images were obtained of the chest without and with intravenous contrast. This CT exam was performed using one or more of the following dose reduction techniques: automated exposure control, adjustment of the mA and/or kV according to patient size, and/or use of iterative reconstruction technique. This report was created using [employer] report generation technology. MIP reconstructed images were created and reviewed. CONTRAST: IV 100mL [id number] COMPARISON: Chest radiograph August 22 2021 FINDINGS: PULMONARY ARTERIES: Unremarkable. Normal in caliber. No evidence of pulmonary embolism. AORTA: Unremarkable. Normal in caliber. No evidence of dissection. GREAT VESSELS OF AORTIC ARCH: Unremarkable. Normal in caliber. No evidence of dissection. LUNGS AND PLEURAL SPACES: Patchy airspace opacification throughout both lungs consistent with pneumonia and compatible with Covid infection. No mass. No pleural effusion or thickening. HEART: Minimal pericardial effusion. No signs of right heart strain, ratio of right ventricle to left ventricle measures less than 1. MEDIASTINUM: Unremarkable. No mediastinal or hilar adenopathy. Esophagus is unremarkable. No hiatal hernia. THYROID: Unremarkable. No thyroid lesions. BONES/JOINTS: Unremarkable. No suspicious lytic or blastic abnormality. CT/CTA Chest W/WO Contrast IMPRESSION: 1. Bilateral pneumonia. 2. No evidence of acute pulmonary embolism. Individualized dose optimization techniques were used for this CT. at 1157 Reported and signed by: Tr Wang MD Electronically Signed: Tr Wang MD at 11:56 EST Tel , Service support ,
[2021-08-22] MEDS: dexAMETHasone 10 MG/ML Vial 6 MG IV (10:24)
[2021-08-22 11:02] LABS: Bacteria 0 SEEN /hpf (None Seen); Mucous, Urine 0 SEEN /hpf (<or=2+); Red Blood Cells-Urine 0 SEEN /hpf (0-5); Squamous Epithelial Cells - UA 0 SEEN /hpf (5-10)
[2021-08-22 11:05] LABS: Color, Urine Yellow (Yellow); Glucose, Dipstick Normal (Normal); Ketone-Dipstick 50 mg/dl (Negative); Leukocyte Esterase-Dipstick Negative /ul (Negative); Nitrite-Dipstick Negative (Negative); Occult Blood-Urine Negative /ul (Negative); Protein-Dipstick 30 mg/dl (Negative); Specific Gravity, Urine 1.015 (1.002-1.030); Urine Bilirubin Dipstick Negative (Negative); Urine Clarity Clear (Clear); Urine Urobilinogen 1 mg/dl (Normal)
[2021-08-22 11:29] LABS: White Blood Cells 0-5 SEEN /hpf (0-5)
--- NOTE | 2021-08-22 12:23 | NURSING ---
DR CARDONA FOR DR GARCÍA
--- NOTE | 2021-08-22 12:39 | CM.ED ---
SW Note MD advised that patient's friend, who is in the room with patient, reports that patient is a hoarder and her house is filthy. said that patient had bowel movement in her pants and did not realize it. said that friend doesn't want patient to go home. Sw will provide handoff to assigned case management social worker.\ Germaine EARLY
--- NOTE | 2021-08-22 13:08 | NURSING ---
MED SURG TERELETSKY COVID 19 PNEUMONIA, HYPOXIC RESP FAILURE
[2021-08-22 13:34] LABS: Reflex Lactate? Y
[2021-08-22 14:56] LABS: Lactic Acid 0.8 mmol/L (0.4-1.9)
--- NOTE | 2021-08-22 15:17 | PCM.HP.STD ---
Documented by User: Ronaldo GUZMAN 08/22/21 15:43 HPI - General General Date of Admission: 08/22/21 Date of Service: 08/22/21 Chief Complaint: Weakness HPI Narrative JUAN FRANCISCO TANNER is a 71-year-old female who presents to the ED at [facility] on 08/22/2021 with a 10-day history of progressively worsening weakness, fatigue, shortness of breath and diarrhea. Patient's friend attempted to contact patient earlier today, as she has been in contact with her daily and patient did not respond, which worried her friend. EMS was called and patient suffered a near syncopal event shortly after EMS arrival. Patient was also found to be hypoxic upon EMS arrival with a O2 sat in the 70s. Vital signs in the ED are temperature of 97.8 ?F, HR of 71, BP of 107/68, RR of 14 and patient was satting 95% on room air. Chest x-ray demonstrated bilateral pneumonia. CTA confirmed presence of bilateral pneumonia, but did not show any evidence of acute PE. CBC unremarkable. CMP shows sodium at 133, creatinine at 1.35 and lactic acid at 3.1. Rapid Covid positive. Patient was given steroids, fluid and oxygen in the ED and will be transferred to the floor for further medical management. 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 Home Medications clindamycin HCl 300 mg capsule 300 mg PO TID #30 cap 08/06/20 [Rx Last Taken Unknown] multivitamin 1 cap PO DAILY 08/06/20 [History Last Taken Unknown] mv-min-vit C-ascorb Pz-Hmg-Pre-herb #124 333 mg-1.7 mg chewable tablet 1 tab PO DAILY 08/06/20 [History Last Taken Unknown] zicam PO 08/06/20 [History Last Taken Unknown] dextromethorphan-guaifenesin 10 mg-100 mg/5 mL oral liquid 10 ml PO Q4H PRN #500 ml 04/14/21 [Rx Last Taken Unknown] Allergy/AdvReac Type Severity Reaction Status Date / Time azithromycin Allergy unknown Verified 08/22/21 09:02 doxycycline [From Vibramycin] Allergy Other Verified 08/22/21 09:02 Penicillins Allergy Rash Verified 08/22/21 09:02 Sulfa (Sulfonamide Allergy Rash Verified 08/22/21 09:02 Antibiotics) erythromycin base AdvReac Upset Verified 08/22/21 09:02 Stomach Family History (Updated 08/22/21 @ 15:28 by Ronaldo GUZMAN) Father CVA (cerebral vascular accident) Diabetes Mother , Unaware of any maternal medical history. No problems noted. Surgical History History of appendectomy History of cholecystectomy History of hysterectomy Social History (Updated 08/22/21 @ 15:29 by Ronaldo GUZMAN) Smoking Status: Never smoker alcohol intake: never substance use type: does not use ROS Constitutional Constitutional: Reports chills, fatigue and weakness; Denies anorexia, change in weight, fever(s), malaise, night sweats or other Eyes Eyes: Denies blurry vision, change in eye color, change in vision, discharge from eye(s), double vision, erythema, eye pain, loss of vision or other ENT HEENT: Denies abnormal hearing, dysphagia, ear pain, epistaxis, headache(s), hearing loss, nasal congestion, nasal discharge, post nasal drip, sinus pressure, sore throat or other Cardiovascular Cardiovascular: Reports lightheadedness and syncope; Denies chest pain, claudication, dyspnea on exertion, edema, orthopnea, palpitations, paroxysmal nocturnal dyspnea, rapid heart rate or other Respiratory/Chest Respiratory/Chest: Reports cough and dyspnea; Denies excessive phlegm production, hemoptysis, productive cough, shortness of breath at rest, shortness of breath with exertion, wheezing or other Gastrointestinal Gastrointestinal: Denies abdominal pain, coffee ground emesis, constipation, diarrhea, dyspepsia, hematemesis, hematochezia, loose stools, melena, nausea, vomiting or other Genitourinary Genitourinary: Denies burning urination, difficulty urinating, dysuria, hematuria, nocturia, urinary frequency, urinary hesitancy, urinary incontinence, urinary urgency or other Musculoskeletal Musculoskeletal: Reports arthralgias; Denies back pain, joint pain, joint stiffness, joint swelling, myalgias, neck pain or other Neurologic Neurologic: Denies abnormal gait, abnormal speech, confusion, disequilibrium, dizziness, focal weakness, headache(s), numbness, paresthesias, seizure-like activity, seizures, syncope, tingling, tremor(s) or other Psychiatric Psychiatric: Denies anxiety, depression, homicidal ideation, suicidal ideation or other Endocrine Endocrinology: Denies change in body appearance, cold intolerance, excessive sweating, heat intolerance, polydipsia, polyuria or other Vital Signs Vital Signs Vital Signs: 08/22/21 08:56 08/22/21 09:01 08/22/21 09:02 Temperature 98.6 F 98.6 F Temperature Source Oral Oral Pulse Rate 81 86 Respiratory Rate 18 20 H Blood Pressure 112/83 H 112/83 H Blood Pressure Mean 92 92 Pulse Ox 86 96 95 Oxygen Delivery Method Room Air Nasal Cannula Nasal Cannula Oxygen Flow Rate (L/min) 6 6 08/22/21 09:29 08/22/21 09:33 08/22/21 10:59 Temperature 98.3 F 97.8 F Temperature Source Oral Temporal Pulse Rate 79 71 Respiratory Rate 19 H 14 Blood Pressure 101/68 107/68 Blood Pressure Mean 79 81 Pulse Ox 95 100 Oxygen Delivery Method Nasal Cannula Nasal Cannula Oxygen Flow Rate (L/min) 3 08/22/21 12:23 08/22/21 12:31 08/22/21 14:00 Temperature 97.8 F 97.9 F Temperature Source Temporal Temporal Pulse Rate 71 79 71 Respiratory Rate 18 15 17 Blood Pressure 122/88 H 123/78 H 106/74 Blood Pressure Mean 99 93 84 Pulse Ox 95 95 94 Oxygen Delivery Method Nasal Cannula Nasal Cannula Nasal Cannula Oxygen Flow Rate (L/min) 3 3 3 08/22/21 15:00 Temperature Temperature Source Pulse Rate 72 Respiratory Rate 14 Blood Pressure 103/69 Blood Pressure Mean 80 Pulse Ox 94 Oxygen Delivery Method Nasal Cannula Oxygen Flow Rate (L/min) 3 Weight Weight: 187 lb 9.814 oz Body Mass Index (BMI) 34.3 Physical Exam Const alert and oriented x3 General Appearance: cooperative HEENT normocephalic, head/scalp atraumatic and hearing grossly normal bilaterally Eyes PERRL, EOMs intact bilaterally and conjunctivae normal Neck no lymphadenopathy, supple and no JVD Resp normal respiratory effort, no retractions and no use of accessory muscles Auscultation: diminished lung sounds Cardio regular rate, regular rhythm, no murmurs and no JVD GI normal to inspection, nondistended, normoactive bowel sounds, soft to palpation and non-tender Extremity normal to inspection, full ROM and no clubbing, cyanosis or edema Skin no rashes or lesions noted, no wounds, skin turgor normal and no jaundice Neuro CN's II-XII intact bilaterally Psych affect normal Results Lab / Micro Data Result Diagrams: 08/22/21 09:03 08/22/21 09:03 Labs: Laboratory Results - last 24 hr 08/22/21 09:03: WBC 4.7, RBC 5.32, Hgb 14.9, Hct 47.0, MCV 88.3, MCH 28.0, MCHC 31.7 L, RDW Std Deviation 45.7 H, RDW Coeff of Dayo 14.2, Plt Count 228, MPV 10.1, Immature Gran % (Auto) 1.500 H, Neut % (Auto) 59.9, Lymph % (Auto) 34.5, [place] % (Auto) 3.9, Eos % (Auto) 0.0, Baso % (Auto) 0.2, Absolute Neuts (auto) 2.8, Absolute Lymphs (auto) 1.61, Nucleated RBC % 0, Differential Comment SCANNED, Reactive Lymphocytes 1+ 08/22/21 09:03: PT 14.4, INR 1.2, APTT 28.4 08/22/21 09:03: Sodium 133 L, Potassium 3.7, Chloride 100, Carbon Dioxide 21.0, Anion Gap 12, BUN 18, Creatinine 1.35 H, Estim Creat Clear Calc 30.67, Est GFR (MDRD) Af Amer 50 L, Est GFR (MDRD) Non-Af 41 L, BUN/Creatinine Ratio 13.3, Glucose 123 H, Calcium 8.4 L, Total Bilirubin 0.70, AST 38 H, ALT 25, Alkaline Phosphatase 80, Troponin I High Sens 7, Total Protein 6.8, Albumin 3.1 L, Globulin 3.7, Albumin/Globulin Ratio 0.8 L 08/22/21 09:03: Lactic Acid 3.1 H* 08/22/21 10:45: Urine Color Yellow, Urine Clarity Clear, Urine pH 6.0, Ur Specific [place] 1.015, Urine Protein 30 H, Urine Glucose (UA) Normal, Urine Ketones 50 H, Urine Occult Blood Negative, Urine Nitrite Negative, Urine Bilirubin Negative, Urine Urobilinogen 1 H, Ur Leukocyte Esterase Negative, Urine RBC 0 SEEN, Urine WBC 0-5 SEEN, Ur Squamous Epith Cells 0 SEEN, Urine Bacteria 0 SEEN, Urine Mucus 0 SEEN 08/22/21 14:20: Lactic Acid 0.8 Micro: Microbiology 08/22/21 10:25 Nasal Secretion SARS-CoV-2 Antigen (Rapid) - Final SARS-CoV-2 (COVID 19) Radiology Impression Chest X-Ray 08/22/21 09:29 IMPRESSION: Bilateral pneumonia. at 1001 Reported and signed by: Tr Wang MD Electronically Signed: Tr Wang MD at 10:00 EST Tel , Service support , Chest CTA 08/22/21 10:05 IMPRESSION: 1. Bilateral pneumonia. 2. No evidence of acute pulmonary embolism. Individualized dose optimization techniques were used for this CT. at 1157 Reported and signed by: Tr Wang MD Electronically Signed: Tr Wang MD at 11:56 EST Tel , Service support , Assessment & Plan Assessment/Plan (1) COVID-19: PLAN: Patient is a 71-year-old female presents the ED at [facility] on 08/22/2021 with a 10-day history of progressively worsening weakness, arthralgias and shortness of breath with hypoxia. Patient will be admitted for management and evaluation of symptomatic COVID-19 infection. 1) acute hypoxia secondary to COVID-19 infection Patient presents with a 10-day history of progressively worsening weakness, arthralgias and shortness of breath. On initial evaluation by EMS patient was hypoxic at 70% on room air. Rapid Covid was positive in the ED. Despite reports of shortness of breath, vital signs are stable and patient is afebrile. Currently satting 100% on 3 L via nasal cannula. CBC was unremarkable and did not demonstrate a leukocytosis. Lactic acid was 3.1. Chest x-ray and chest CT-A demonstrated bilateral pneumonia, but no PE evident. Plan; admit to [facility], O2 per protocol, and history of precautions ordered, initiate remdesivir, initiate Decadron, ID consult ordered, CBC and BMP in a.m., status parameters encouraged. 2) near syncope Observed by EMS on arrival. No further episodes of syncope observed or reported by patient. Plan; as above. 3) hyponatremia Sodium 133, likely due to diarrhea and poor oral intake. Continue to monitor BMP. DVT prophylaxis - Lovenox CODE STATUS: Full code Advance care planning: Patient does have a living well in the patient's healthcare power of civil rights attorney is Niru Herrera, who is patient's daughter. Patient seen by Ronaldo Crocker PA-C, under the supervision of Dr. Almazan. Documented by User: Dr. 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 Home Medications clindamycin HCl 300 mg capsule 300 mg PO TID #30 cap 08/06/20 [Rx Last Taken Unknown] multivitamin 1 cap PO DAILY 08/06/20 [History Last Taken Unknown] mv-min-vit C-ascorb Go-Llq-Zxu-herb #124 333 mg-1.7 mg chewable tablet 1 tab PO DAILY 08/06/20 [History Last Taken Unknown] zicam PO 08/06/20 [History Last Taken Unknown] dextromethorphan-guaifenesin 10 mg-100 mg/5 mL oral liquid 10 ml PO Q4H PRN #500 ml 04/14/21 [Rx Last Taken Unknown] Allergy/AdvReac Type Severity Reaction Status Date / Time azithromycin Allergy unknown Verified 08/22/21 09:02 doxycycline [From Vibramycin] Allergy Other Verified 08/22/21 09:02 Penicillins Allergy Rash Verified 08/22/21 09:02 Sulfa (Sulfonamide Allergy Rash Verified 08/22/21 09:02 Antibiotics) erythromycin base AdvReac Upset Verified 08/22/21 09:02 Stomach Family History (Updated 08/22/21 @ 15:28 by Ronaldo GUZMAN) Father CVA (cerebral vascular accident) Diabetes Mother , Unaware of any maternal medical history. No problems noted. Surgical History History of appendectomy History of cholecystectomy History of hysterectomy Social History (Updated 08/22/21 @ 15:29 by Ronaldo GUZMAN) Smoking Status: Never smoker alcohol intake: never substance use type: does not use Results Lab / Micro Data Result Diagrams: 08/22/21 09:03 08/22/21 09:03 Charges/Coding Addendum Addendum: Patient was seen and examined independently of Ronaldo Crocker, she came to the ER today at [facility] with complaints of progressive fatigue, shortness of breath, and cough, she was found in a weakened state at her home and was brought to the emergency room at [facility] by squad for evaluation. On examination she appeared in good health and spirits, she does not appear to be in any distress. Vital signs as documented. Skin warm and dry and without overt rashes. Neck without JVD, thyroid appears normal, trachea is midline, neck is supple. Lungs clear, normal air movement was noted. Heart exam notable for regular rhythm, normal sounds and absence of murmurs, rubs or gallops. Abdomen unremarkable and without evidence of organomegaly, masses, or abdominal aortic enlargement, bowel sounds are present in all 4 quadrants, no abdominal tenderness was noted. Extremities nonedematous, no cyanosis was noted, no clubbing was noted. Neuro: Cranial nerves II through XII are grossly intact, no focal motor deficits were noted, sensation to light touch and pinprick is intact, motor exam 5/5 throughout. Psych: Patient is alert and oriented x3, she does not appear anxious or depressed, she does not appear agitated. Work-up in the emergency room included a chest x-ray which showed evidence of bilateral pneumonia, patient's white blood cell count was normal, patient's creatinine was elevated at 1.35 which is near her baseline creatinine. Patient's COVID-19 antigen test was positive, CT of the chest showed bilateral pneumonia with no evidence of pulmonary embolism. Patient will be admitted to [place] [address] for COVID-19 pneumonia with hypoxic respiratory failure, she is currently on nasal cannula oxygen, she is consented to take remdesivir, I have also placed her on dexamethasone. I have reviewed Ronaldo Crocker's progress note including his medical assessment and plan of care and endorse it. Visit Charges Inpatient E&M: 31639 Subs Hosp L3
[2021-08-22] MEDS: Enoxaparin 40 MG/0.4 ML Syringe SC (18:52)
[2021-08-22] MEDS: 0.9% Saline Lock 10 ML Syringe IV (22:00)
--- NOTE | 2021-08-22 23:49 | PCS.PANDOC ---
PANDEMIC DOCUMENTATION INITIATED: Date: 04/27/2021 Time: 190
[2021-08-23] VITALS (7 sets, daily range): BP systolic 112–122; BP diastolic 63–67; PULSE 58–71; RESP 18–20; TEMP 35.3–37.3; O2SAT 93–96
[2021-08-23] MEDS: 0.9% Saline Lock 10 ML Syringe IV ×3 (05:57→21:58)
[2021-08-23 08:47] LABS: Absolute Lymphocyte Count 1.29 X10^3/uL (0.83-4.51); Absolute Neutrophil Count 6.7 X10^3/uL (2.0-7.7); Basophil# 0.02 X10^3/uL; Basophil% 0.2 % (0-1); Hematocrit 45.3 % (37-47); Hemoglobin 15.1 g/dL (12.0-15.0); Lymphocyte # 1.29 X10^3/ul (0.83-4.51); Lymphocyte % 15.1 % (19-41); Mean Corp Hgb Conc 33.3 g/dL (32-36); Mean Corpuscular Hgb 28.9 pg (27.0-32.0); Mean Corpuscular Volume 86.8 fL (81-99); Mean Platelet Vol. 10.3 fl (6.2-12.0); Monocyte# 0.45 X10^3/uL; Monocyte% 5.3 % (0-10); NRBC Flagged by Analyzer 0 % (0-5); Neutrophil # 6.68 X10^3/uL (2.7-7.7); Neutrophil % 77.9 % (47-70); POSITIVE MORPHOLOGY YES; Platelet Count 245 K/mm3 (150-450); RBC Distribution Width SD 44.8 fl (35.1-43.9); Red Blood Count 5.22 M/mm3 (4.2-5.4); White Blood Count 8.6 K/mm3 (4.4-11.0)
[2021-08-23 08:55] LABS: Differential Indicated SCAN CRITERIA MET
[2021-08-23 09:17] LABS: Differential Comment SCANNED; Reactive Lymphocyte 1+
[2021-08-23 09:19] LABS: ALB/GLOB Ratio 0.7 RATIO (0.9-2.4); AST(SGOT) 28 U/L (15-37); Alanine Aminotransfer ALT/SGPT 23 U/L (13-56); Albumin, Serum 2.6 g/dL (3.2-5.0); Alkaline Phosphatase 73 U/L (45-117); Anion Gap 9 (5-15); BUN 17 mg/dL (7-18); BUN/Creat Ratio 21.6 RATIO (10-20); Calcium,Total 8.6 mg/dL (8.5-10.1); Chloride 106 mmol/L (98-107); Creatinine, Serum 0.79 mg/dL (0.55-1.02); EST Glomerular Filtration Rate 77 mL/min (>60); Est Glom Filt Rate - Afr Amer 93 mL/min (>60); Globulin 3.6 g/dL (2.2-4.2); Glucose 112 mg/dL (74-106); Potassium 3.8 mmol/L (3.5-5.1); Protein, Total 6.2 g/dL (6.4-8.2); Sodium Level 137 mmol/L (136-145)
[2021-08-23] MEDS: Enoxaparin 40 MG/0.4 ML Syringe SC (09:43)
[2021-08-23] MEDS: dexAMETHasone 10 MG/ML Vial 6 MG IV (09:44)
--- NOTE | 2021-08-23 11:28 | PN.HOSP_ITS ---
Documented by User: Ronaldo GUZMAN 08/23/21 11:38 Subjective Subjective Patient is a 71-year-old female comfortably resting in bed, alert and oriented x3. Patient still reports ongoing weakness and fatigue, but denies development of any new symptoms overnight. Does not appear in acute distress. Objective Data Objective Data Vital Signs: Vital Signs Temp Pulse Resp BP Pulse Ox 99.1 F 71 18 119/67 95 08/23/21 09:34 08/23/21 09:34 08/23/21 09:34 08/23/21 09:34 08/23/21 09:34 Oxygen Flow Rate (L/min) 3 Oxygen Delivery Method Nasal Cannula Weight: 179 lb 0.246 oz Body Mass Index (BMI) 32.7 Intake & Output: Intake and Output for Last 24 Hours 08/21/21 08/22/21 08/23/21 23:59 23:59 23:59 Intake Total 750 / 750 Balance 750 / 750 Lab / Micro Data Result Diagrams: 08/23/21 08:23 08/23/21 08:23 Labs: Laboratory Results - last 24 hr 08/22/21 10:45: Urine RBC 0 SEEN, Urine WBC 0-5 SEEN, Ur Squamous Epith Cells 0 SEEN, Urine Bacteria 0 SEEN, Urine Mucus 0 SEEN 08/22/21 14:20: Lactic Acid 0.8 08/23/21 08:23: WBC 8.6, RBC 5.22, Hgb 15.1 H, Hct 45.3, MCV 86.8, MCH 28.9, MCHC 33.3 D, RDW Std Deviation 44.8 H, RDW Coeff of Dayo 14.0, Plt Count 245, MPV 10.3, Immature Gran % (Auto) 1.500 H, Neut % (Auto) 77.9 H, Lymph % (Auto) 15.1 L, [place] % (Auto) 5.3, Eos % (Auto) 0.0, Baso % (Auto) 0.2, Absolute Neuts (auto) 6.7, Absolute Lymphs (auto) 1.29, Nucleated RBC % 0, Differential Comment SCANNED, Reactive Lymphocytes 1+ 08/23/21 08:23: Sodium 137, Potassium 3.8, Chloride 106, Carbon Dioxide 22.0, Anion Gap 9, BUN 17, Creatinine 0.79, Estim Creat Clear Calc 41.40, Est GFR (MDR D) Af Amer 93, Est GFR (MDRD) Non-Af 77, BUN/Creatinine Ratio 21.6 H, Glucose 112 H, Calcium 8.6, Total Bilirubin 0.50, AST 28, ALT 23, Alkaline Phosphatase 73, Total Protein 6.2 L, Albumin 2.6 L, Globulin 3.6, Albumin/Globulin Ratio 0.7 L Micro: Microbiology 08/22/21 10:45 Urine, Clean Catch Urine Culture - Preliminary Culture exhibits no growth. 08/22/21 10:25 Nasal Secretion SARS-CoV-2 Antigen (Rapid) - Final SARS-CoV-2 (COVID 19) Radiography Diagnostic Testing: Radiology Impression Chest CTA 08/22/21 10:05 IMPRESSION: 1. Bilateral pneumonia. 2. No evidence of acute pulmonary embolism. Individualized dose optimization techniques were used for this CT. at 1157 Reported and signed by: Tr Wang MD Electronically Signed: Tr Wang MD at 11:56 EST Tel , Service support , Physical Exam Const alert, oriented x3 and no apparent distress HEENT head/scalp atraumatic, moist oral mucous membranes and oropharynx normal Head and Scalp: normocephalic Eyes PERRL, EOMs intact bilaterally and conjunctivae normal Neck no lymphadenopathy, supple and no JVD Resp normal respiratory effort, no retractions, no use of accessory muscles and clear to auscultation bilaterally Resp Narrative: Currently satting 95% on 3 L via nasal cannula. Cardio regular rate, regular rhythm, no murmurs and no JVD GI normal to inspection, nondistended, normoactive bowel sounds, soft to palpation and non-tender Extremity normal to inspection, full ROM and no clubbing, cyanosis or edema Skin no rashes or lesions noted, no wounds, skin turgor normal and no jaundice Neuro CN's II-XII intact bilaterally Psych affect normal Assessment & Plan Assessment/Plan (1) COVID-19: PLAN: Day 1 Discharge planning: Current plan is for patient to discharge home. 1) symptomatic COVID-19 infection Patient's hypoxia has resolved from admission, currently satting 95% on 3 L via nasal cannula. Patient still reports ongoing weakness and arthralgias. Denies fevers, chills, N/V/D. Vital signs are stable and patient is afebrile. CBC does not demonstrate a leukocytosis. Continue with steroids and remdesivir, continue to monitor. 2) near syncope Observed by EMS prior to admission. No further episodes of syncope observed or reported by patient. Plan; as above. 3) hyponatremia Sodium is currently 137, continue to monitor. DVT prophylaxis - Lovenox Patient seen by Ronaldo Crocker PA-C, under the supervision of Dr. Almazan. Documented by User: Dr. Efrem Almazan, 08/23/21 18:11 Objective Data Lab / Micro Data Result Diagrams: 08/23/21 08:23 08/23/21 08:23 Charges/Coding Addendum Addendum: Patient was seen and examined today independently of Ronaldo Crocker, she is currently on 3 L of oxygen via nasal cannula today. Patient has no co mplaints of any fevers, chills, or chest discomfort. On examination she appeared in good health and spirits, she does not appear to be in any distress. Vital signs as documented. Skin warm and dry and without overt rashes. Neck without JVD, thyroid appears normal, trachea is midline, neck is supple. Lungs clear, normal air movement was noted. Heart exam notable for regular rhythm, normal sounds and absence of murmurs, rubs or gallops. Abdomen unremarkable and without evidence of organomegaly, masses, or abdominal aortic enlargement, bowel sounds are present in all 4 quadrants, no abdominal te nderness was noted. Extremities nonedematous, no cyanosis was noted, no clubbing was noted. Neuro: Cranial nerves II through XII are grossly intact, no focal motor deficits were noted, sensation to light touch and pinprick is intact, motor exam 5/5 throughout. Psych: Patient is alert and oriented x3, she does not appear anxious or depressed, she does not appear agitated. I have reviewed Ronaldo Crocker's progress note including his medical assessment and plan of care and endorse it. Visit Charges Inpatient E&M: 98549 Subs Hosp L2
[2021-08-24 00:11] VITALS: BP 123/71; PULSE 63; RESP 16; TEMP 36.8; O2SAT 96
[2021-08-24 04:55] VITALS: BP 104/65; PULSE 60; RESP 18; TEMP 36.4; O2SAT 96
[2021-08-24 07:46] LABS: Absolute Lymphocyte Count 1.27 X10^3/uL (0.83-4.51); Absolute Neutrophil Count 5.8 X10^3/uL (2.0-7.7); Basophil# 0.01 X10^3/uL; Basophil% 0.1 % (0-1); Hematocrit 42.9 % (37-47); Lymphocyte # 1.27 X10^3/ul (0.83-4.51); Lymphocyte % 16.4 % (19-41); Mean Corp Hgb Conc 32.6 g/dL (32-36); Mean Corpuscular Hgb 28.5 pg (27.0-32.0); Mean Corpuscular Volume 87.2 fL (81-99); Mean Platelet Vol. 10.3 fl (6.2-12.0); Monocyte# 0.42 X10^3/uL; Monocyte% 5.4 % (0-10); NRBC Flagged by Analyzer 0 % (0-5); Neutrophil # 5.82 X10^3/uL (2.7-7.7); Neutrophil % 75.4 % (47-70); POSITIVE MORPHOLOGY YES; Platelet Count 308 K/mm3 (150-450); RBC Distribution Width CV 14.1 % (11.6-14.6); RBC Distribution Width SD 45.6 fl (35.1-43.9); Red Blood Count 4.92 M/mm3 (4.2-5.4); White Blood Count 7.7 K/mm3 (4.4-11.0)
[2021-08-24 07:51] LABS: Differential Indicated SCAN CRITERIA MET
[2021-08-24 08:16] LABS: ALB/GLOB Ratio 0.7 RATIO (0.9-2.4); AST(SGOT) 29 U/L (15-37); Alanine Aminotransfer ALT/SGPT 25 U/L (13-56); Albumin, Serum 2.4 g/dL (3.2-5.0); Alkaline Phosphatase 68 U/L (45-117); Anion Gap 6 (5-15); BUN 24 mg/dL (7-18); BUN/Creat Ratio 30.1 RATIO (10-20); Calcium,Total 8.5 mg/dL (8.5-10.1); Chloride 109 mmol/L (98-107); EST Glomerular Filtration Rate 76 mL/min (>60); Est Glom Filt Rate - Afr Amer 91 mL/min (>60); Estimated Creatinine Clearance 51.75 ml/min; Globulin 3.6 g/dL (2.2-4.2); Glucose 119 mg/dL (74-106); Potassium 4.1 mmol/L (3.5-5.1); Sodium Level 138 mmol/L (136-145)
[2021-08-24 08:25] LABS: Atypical Lymphocyte RARE %
[2021-08-24 11:01] VITALS: BP 122/68; PULSE 58; RESP 20; TEMP 36.6; O2SAT 94
[2021-08-24] MEDS: Enoxaparin 40 MG/0.4 ML Syringe SC (11:03)
[2021-08-24] MEDS: dexAMETHasone 10 MG/ML Vial 6 MG IV (11:03)
[2021-08-24] MEDS: 0.9% Saline Lock 10 ML Syringe IV ×3 (11:04→21:12)
--- NOTE | 2021-08-24 12:40 | CASEMGMT ---
MARVIN RICE Assessment: Face to Face with pt for initial transition planning/care coordination assessment. MARVIN RICE introduced self and role at [facility], pt voices understanding and consents to assessment. Pt is A/O x4 and answers all questions appropriately at this time. Pt sitting up in chair eating lunch with O2 on in no distress. Care providers, pharmacy, and demographics verified/updated. Admitting Dx: COVID 19 pneumonia, respiratory failure PCP:Jose Luis Specialists:Pt denies having any specialists. Preferred Pharmacy: [facility] Insurance: [facility], [employer] Prescription Benefit: yes LW/HPOA: Pt states she has a LW/DPOA and her DPOA is her dtr Niru Herrera. She is aware it is not on file at [facility] and she may bring in to be scanned into her chart. LNOK: Niru Herrera, dtr; Estephania Alanis, friend Living Arrangements: Pt lives alone in a two story house with 5 steps to enter with a rail. Pt reports she is I in ADL's and denies concerns at home. Transportation: Pt drives self and denies concerns with transportation. DME/HHC/SNF: Pt has a cane at home but does not use. She has grab bars in her bathroom. Pt denies hx of HHC or SNF stays. Pt states she was first tested for COVID at [facility]. She states she has family/friends who can provide her with groceries and supplies. Discussed local DME companies should pt need home O2, pt did not have preference of company. Pt states no concerns with going home at time of dc. Pt states no further concerns/needs. CM to follow. Advised pt to ask CM if any further question/concerns/needs arise, voices understanding. Pt Goal: Home Plan: Home
--- NOTE | 2021-08-24 14:04 | PCM.PN.HOSP ---
Subjective Subjective Patient is a 71-year-old female who presented with a 10-day history of progressive generalized weakness shortness of breath and arthralgias. Her COVID 19 is obtained in the ED came back positive admitted to the regular nursing floor for further management Objective Data Objective Data Vital Signs: Vital Signs Temp Pulse Resp BP Pulse Ox 97.8 F 58 L 20 H 122/68 H 94 08/24/21 11:01 08/24/21 11:01 08/24/21 11:01 08/24/21 11:01 08/24/21 11:01 Oxygen Flow Rate (L/min) 3 Oxygen Delivery Method Nasal Cannula Weight: 81.2 kg Body Mass Index (BMI) 32.7 Intake & Output: Intake and Output for Last 24 Hours 08/22/21 08/23/21 08/24/21 23:59 23:59 23:59 Intake Total 750 / 750 900 / 900 250 / 250 Balance 750 / 750 900 / 900 250 / 250 Lab / Micro Data Result Diagrams: 08/24/21 07:15 08/24/21 07:15 Labs: Laboratory Results - last 24 hr 08/24/21 07:15: WBC 7.7, RBC 4.92, Hgb 14.0, Hct 42.9, MCV 87.2, MCH 28.5, MCHC 32.6, RDW Std Deviation 45.6 H, RDW Coeff of Dayo 14.1, Plt Count 308, MPV 10.3, Immature Gran % (Auto) 2.700 H, Neut % (Auto) 75.4 H, Lymph % (Auto) 16.4 L, [place] % (Auto) 5.4, Eos % (Auto) 0.0, Baso % (Auto) 0.1, Absolute Neuts (auto) 5.8, Absolute Lymphs (auto) 1.27, Nucleated RBC % 0, Atypical Lymphocytes RARE 08/24/21 07:15: Sodium 138, Potassium 4.1, Chloride 109 H, Carbon Dioxide 23.0, Anion Gap 6, BUN 24 H, Creatinine 0.80, Estim Creat Clear Calc 51.75, Est GFR (MDRD) Af Amer 91, Est GFR (MDRD) Non-Af 76, BUN/Creatinine Ratio 30.1 H, Glucose 119 H, Calcium 8.5, Total Bilirubin 0.50, AST 29, ALT 25, Alkaline Phosphatase 68, Total Protein 6.0 L, Albumin 2.4 L, Globulin 3.6, Albumin/Globulin Ratio 0.7 L Micro: Microbiology 08/22/21 10:45 Urine, Clean Catch Urine Culture - Preliminary Culture exhibits no growth. 08/22/21 10:25 Nasal Secretion SARS-CoV-2 Antigen (Rapid) - Final SARS-CoV-2 (COVID 19) Physical Exam Narrative GENERAL: On supplemental oxygen HEENT: Atraumatic; EYES; Anicteric, Normal Conjunctiva NECK; supple, normal thyroid, RESPIRATORY: Diminished to auscultation CARDIOVASCULAR: Regular S1 S2, GI: soft, normoactive bowel sounds, : No Renal angle tenderness; EXTREMITIES: No edema, no clubbing, MUSCULOSKELETAL: no muscle waisting NEURO: Awake; no lateralizing signs. SKIN: No Rash PSYCH; Flat affect Assessment & Plan Assessment/Plan (1) COVID-19: PLAN: Patient is a 71-year-old female who presented with progressive generalized weakness shortness of breath and arthralgias. Her COVID 19 is obtained in the ED came back positive admitted to the regular nursing floor for further management 1. Acute hypoxic respiratory failure ?Secondary to SARS-CoV-2 pneumonia. Admitted to regular nursing floor placed on supplemental oxygen. Patient was started on Decadron remdesivir admitted to regular nursing floor. Was also placed on supplemental oxygen 2. Hyponatremia ?Secondary to hypovolemic hyponatremia started on IV fluid with subsequent monitoring of electrolyte 3. Near syncope ?Suspected to be secondary to dehydration managed with IV fluid 4. Obesity class II with BMI of 32.7 ?Weight loss advised 5. DVT prophylaxis ?SC Lovenox Charges/Coding Visit Charges Inpatient E&M: 56978 Subs Hosp L3
[2021-08-24 14:42] VITALS: BP 110/60; PULSE 56; RESP 18; TEMP 36.1; O2SAT 94
[2021-08-24 14:50] VITALS: O2SAT 95
[2021-08-24] MEDS: Acetaminophen 325 MG Tablet 650 MG PO (18:43)
[2021-08-24 21:04] VITALS: BP 128/69; PULSE 48; RESP 18; TEMP 36.4; O2SAT 94
[2021-08-25] VITALS (10 sets, daily range): BP systolic 111–135; BP diastolic 59–67; PULSE 47–81; RESP 16–18; TEMP 35.7–37; O2SAT 90–96
--- NOTE | 2021-08-25 07:25 | PCM.PN.HOSP ---
Subjective Subjective Patient seen currently resting at rest without any oxygen needs. Patient will be assessed for home oxygen needs prior to possible discharge Objective Data Objective Data Vital Signs: Vital Signs Temp Pulse Resp BP Pulse Ox 96.2 F L 62 18 135/67 H 91 08/25/21 03:48 08/25/21 06:43 08/25/21 03:48 08/25/21 03:48 08/25/21 06:43 Oxygen Flow Rate (L/min) 2 Oxygen Delivery Method Room Air Weight: 81.2 kg Body Mass Index (BMI) 32.7 Intake & Output: Intake and Output for Last 24 Hours 08/23/21 08/24/21 08/25/21 23:59 23:59 23:59 Intake Total 900 / 900 1100 / 1100 Balance 900 / 900 1100 / 1100 Lab / Micro Data Result Diagrams: 08/24/21 07:15 08/24/21 07:15 Labs: Laboratory Results - last 24 hr 08/24/21 07:15: WBC 7.7, RBC 4.92, Hgb 14.0, Hct 42.9, MCV 87.2, MCH 28.5, MCHC 32.6, RDW Std Deviation 45.6 H, RDW Coeff of Dayo 14.1, Plt Count 308, MPV 10.3, Immature Gran % (Auto) 2.700 H, Neut % (Auto) 75.4 H, Lymph % (Auto) 16.4 L, [place] % (Auto) 5.4, Eos % (Auto) 0.0, Baso % (Auto) 0.1, Absolute Neuts (auto) 5.8, Absolute Lymphs (auto) 1.27, Nucleated RBC % 0, Atypical Lymphocytes RARE 08/24/21 07:15: Sodium 138, Potassium 4.1, Chloride 109 H, Carbon Dioxide 23.0, Anion Gap 6, BUN 24 H, Creatinine 0.80, Estim Creat Clear Calc 51.75, Est GFR (MDRD) Af Amer 91, Est GFR (MDRD) Non-Af 76, BUN/Creatinine Ratio 30.1 H, Glucose 119 H, Calcium 8.5, Total Bilirubin 0.50, AST 29, ALT 25, Alkaline Phosphatase 68, Total Protein 6.0 L, Albumin 2.4 L, Globulin 3.6, Albumin/Globulin Ratio 0.7 L Micro: Microbiology 08/22/21 10:45 Urine, Clean Catch Urine Culture - Preliminary Culture exhibits no growth. 08/22/21 10:25 Nasal Secretion SARS-CoV-2 Antigen (Rapid) - Final SARS-CoV-2 (COVID 19) Physical Exam Narrative GENERAL: On supplemental oxygen HEENT: Atraumatic; EYES; Anicteric, Normal Conjunctiva NECK; supple, normal thyroid, RESPIRATORY: Diminished to auscultation CARDIOVASCULAR: Regular S1 S2, GI: soft, normoactive bowel sounds, : No Renal angle tenderness; EXTREMITIES: No edema, no clubbing, MUSCULOSKELETAL: no muscle waisting NEURO: Awake; no lateralizing signs. SKIN: No Rash PSYCH; Flat affect Assessment & Plan Assessment/Plan (1) COVID-19: PLAN: Patient is a 71-year-old female who presented with progressive generalized weakness shortness of breath and arthralgias. Her COVID 19 is obtained in the ED came back positive admitted to the regular nursing floor for further management 1. Acute hypoxic respiratory failure ?Secondary to SARS-CoV-2 pneumonia. Admitted to regular nursing floor placed on supplemental oxygen. Patient was started on Decadron remdesivir admitted to regular nursing floor. Was also placed on supplemental oxygen -08/25/2021 patient seen currently resting at rest without any oxygen needs. Patient will be assessed for home oxygen needs prior to possible discharge 2. Hyponatremia ?Secondary to hypovolemic hyponatremia started on IV fluid with subsequent monitoring of electrolyte 3. Near syncope ?Suspected to be secondary to dehydration managed with IV fluid 4. Obesity class II with BMI of 32.7 ?Weight loss advised 5. DVT prophylaxis ?SC Lovecolettex Charges/Coding Visit Charges Inpatient E&M: 75185 Subs Hosp L2
--- NOTE | 2021-08-25 08:11 | DS.PCM_ITS ---
Providers Date of Admission: 08/22/21 Primary Care Physician: Dr. Ramin Amaya MD Reason For Visit: COVID-19 PNEUMONIA, RESPIRATORY FAILURE Diagnosis Discharge Diagnosis (1) COVID-19: Status: Acute Code(s): U07.1 - COVID-19 Medications at Discharge Home Medications multivitamin 1 cap PO DAILY 08/06/20 mv-min-vit C-ascorb Zu-Yrz-Xff-herb #124 333 mg-1.7 mg chewable tablet 1 tab PO DAILY 08/06/20 zicam PO 08/06/20 dextromethorphan-guaifenesin 10 mg-100 mg/5 mL oral liquid 10 ml PO Q4H PRN #500 ml 04/14/21 dexamethasone [Decadron] 6 mg PO DAILY #7 tab 08/25/21 levofloxacin 750 mg PO DAILY #5 tab 08/25/21 Hospital Course Summary of Care Provided Minutes Spent on Discharge: 35 Hospital Course: Patient is a 71-year-old female who presented with progressive generalized weakness shortness of breath and arthralgias. Her COVID 19 is obtained in the ED came back positive admitted to the regular nursing floor for further management 1. Acute hypoxic respiratory failure ?Secondary to SARS-CoV-2 pneumonia. Admitted to regular nursing floor placed on supplemental oxygen. Patient was started on Decadron remdesivir admitted to regular nursing floor. Was also placed on supplemental oxygen -08/25/2021 patient seen currently resting at rest without any oxygen needs. Patient will be assessed for home oxygen needs prior to possible discharge 2. Hyponatremia ?Secondary to hypovolemic hyponatremia started on IV fluid with subsequent monitoring of electrolyte 3. Near syncope ?Suspected to be secondary to dehydration managed with IV fluid 4. Obesity class II with BMI of 32.7 ?Weight loss advised 5. DVT prophylaxis ?SC Lovenox Physical Exam Narrative GENERAL: Cooperative HEENT: Atraumatic; EYES; Anicteric, Normal Conjunctiva NECK; supple, normal thyroid, RESPIRATORY: Diminished to auscultation CARDIOVASCULAR: Regular S1 S2, GI: soft, normoactive bowel sounds, : No Renal angle tenderness; EXTREMITIES: No edema, no clubbing, MUSCULOSKELETAL: no muscle waisting NEURO: Awake; no lateralizing signs. SKIN: No Rash PSYCH; Flat affect Weight / BMI Weight Weight: 81.2 kg Body Mass Index (BMI) 32.7 ABG / Lab / Microbiology Data Result Diagrams: 08/24/21 07:15 08/24/21 07:15 Laboratory: Laboratory Results - last 24 hr 08/24/21 07:15: Atypical Lymphocytes RARE 08/24/21 07:15: Sodium 138, Potassium 4.1, Chloride 109 H, Carbon Dioxide 23.0, Anion Gap 6, BUN 24 H, Creatinine 0.80, Estim Creat Clear Calc 51.75, Est GFR (M DRD) Af Amer 91, Est GFR (MDRD) Non-Af 76, BUN/Creatinine Ratio 30.1 H, Glucose 119 H, Calcium 8.5, Total Bilirubin 0.50, AST 29, ALT 25, Alkaline Phosphatase 68, Total Protein 6.0 L, Albumin 2.4 L, Globulin 3.6, Albumin/Globulin Ratio 0.7 L Microbiology: Microbiology 08/22/21 10:45 Urine, Clean Catch Urine Culture - Preliminary Culture exhibits no growth. 08/22/21 10:25 Nasal Secretion SARS-CoV-2 Antigen (Rapid) - Final SARS-CoV-2 (COVID 19) D/C Instructions Discharge Diet: No restrictions Discharge Activity: Return to Normal Activity Call your doctor if you observe: Fever of 101 or Higher, Shortness of breath, Fainting spells and Chest pain Meaningful Use Info Meaningful Use Diagnoses (Choose all that apply): None applicable Discharge Plan Admission Admit Date/Time: 08/22/21 13:21 Attending Provider: Kimo Paniagua Primary Care Provider: Ramin Amaya Chi Discharge Orders/Prescriptions Prescriptions: New dexamethasone [Decadron] 6 mg tablet 6 mg PO DAILY Qty: 7 RF: 0 levofloxacin 750 mg tablet 750 mg PO DAILY Qty: 5 RF: 0 Continued Airborne (ascorbate sodium) 333-1.7 mg tablet,chewable 1 tab PO DAILY RF: 0 zicam PO RF: 0 multivitamin capsule 1 cap PO DAILY RF: 0 dextromethorphan-guaifenesin [Adult Tussin Cough Congest DM] 10-100 mg/5 mL liquid 10 ml PO Q4H PRN (Reason: cough) Qty: 500 RF: 0 Discontinued clindamycin HCl 300 mg capsule 300 mg PO TID Qty: 30 RF: 0 Referrals / Follow Up: Ramin Amaya Chi, MD [Primary Care Provider] - Within 2 Weeks Disposition Disposition (needs filled in before D/C Order can be placed): Home, Self Care Charges/Coding Visit Charges Inpatient E&M: 40749 Disch Hosp
[2021-08-25 09:12] LABS: Absolute Lymphocyte Count 1.21 X10^3/uL (0.83-4.51); Absolute Neutrophil Count 4.4 X10^3/uL (2.0-7.7); Basophil# 0.06 X10^3/uL; Hematocrit 44.9 % (37-47); Lymphocyte # 1.21 X10^3/ul (0.83-4.51); Lymphocyte % 19.2 % (19-41); Mean Corp Hgb Conc 31.2 g/dL (32-36); Mean Corpuscular Hgb 28.1 pg (27.0-32.0); Mean Platelet Vol. 10.5 fl (6.2-12.0); Monocyte# 0.34 X10^3/uL; Monocyte% 5.4 % (0-10); NRBC Flagged by Analyzer 0 % (0-5); Neutrophil # 4.38 X10^3/uL (2.7-7.7); Neutrophil % 69.6 % (47-70); POSITIVE MORPHOLOGY YES; Platelet Count 345 K/mm3 (150-450); RBC Distribution Width CV 14.2 % (11.6-14.6); Red Blood Count 4.99 M/mm3 (4.2-5.4); White Blood Count 6.3 K/mm3 (4.4-11.0)
[2021-08-25 09:18] LABS: Differential Indicated SCAN CRITERIA MET
[2021-08-25] MEDS: dexAMETHasone 10 MG/ML Vial 6 MG IV (09:31)
[2021-08-25] MEDS: Enoxaparin 40 MG/0.4 ML Syringe SC (09:31)
[2021-08-25] MEDS: 0.9% Saline Lock 10 ML Syringe IV (09:31)
[2021-08-25 09:48] LABS: ALB/GLOB Ratio 0.7 RATIO (0.9-2.4); AST(SGOT) 29 U/L (15-37); Alanine Aminotransfer ALT/SGPT 26 U/L (13-56); Albumin, Serum 2.2 g/dL (3.2-5.0); Alkaline Phosphatase 68 U/L (45-117); Anion Gap 10 (5-15); BUN 25 mg/dL (7-18); Calcium,Total 8.5 mg/dL (8.5-10.1); Chloride 111 mmol/L (98-107); Creatinine, Serum 0.81 mg/dL (0.55-1.02); EST Glomerular Filtration Rate 75 mL/min (>60); Est Glom Filt Rate - Afr Amer 90 mL/min (>60); Estimated Creatinine Clearance 51.11 ml/min; Globulin 3.2 g/dL (2.2-4.2); Glucose 159 mg/dL (74-106); Potassium 4.2 mmol/L (3.5-5.1); Protein, Total 5.4 g/dL (6.4-8.2); Sodium Level 139 mmol/L (136-145)
[2021-08-25 09:54] LABS: Reactive Lymphocyte RARE
--- NOTE | 2021-08-25 11:05 | CASEMGMT ---
MARVIN CM in to pt room, pt lying in bed in no distress. Received notification from SONAL Ash of concerns family/friends have regarding pt home. Pt states her house has a glass door in which cold air comes through so she has rolled bags and bags of items sitting in front of it to keep the cold air at bay. Pt states she does have clutter in the home but has clear pathways. She states she has been sick so she has not been able to keep up with housework as she would like. She states her home is in good repair without holes in floors or pena, no insects or rodents. She states she has running water, electricity and heat. Pt states that she may be looking for a new house in the future. Pt states her dtr Niru will be picking her up and she will be staying with her while pt recovers. Pt did not qualify for home oxygen. Pt does not feel she needs any therapy or services in the home. Pt denies further concerns/questions at this time.
--- NOTE | 2021-08-25 12:01 | CASEMGMT ---
Addendum entered by Jing Groves 08/25/21 16:12: SW received message from John with [employer] stating she is screening out APS referral temporarily. Original Note: Social Work Note SW had received message from RN stating she spoke with pt's daughter Niru Herrera stating pt's neighbor had done a welfare check and pt's house is not livable. RN KRYSTAL spoke with pt regarding her housing environment. SW called John with [employer] and made APS report due to pt's neighbor reporting that pt is a hoarder. 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
== END 2021-08-25 14:18 | disposition home or self-care (01) | DRG 177 ==
LOC: ED 11:15 → MS3 14:51
PROVIDERS: Admitting Provider Internal Medicine; Emergency Provider Student in an Organized Health Care Education/Training Program; PCP Family Medicine Geriatric Medicine; Visit Provider Internal Medicine
DX: U07.1 COVID-19 (principal); J12.82 Pneumonia due to coronavirus disease 2019; J96.01 Acute respiratory failure with hypoxia; E87.2 Acidosis; E87.1 Hypo-osmolality and hyponatremia; I10 Essential (primary) hypertension; R55 Syncope and collapse; E66.9 Obesity, unspecified; Z68.34 Body mass index [BMI] 34.0-34.9, adult; E86.1 Hypovolemia
CPT/HCPCS: 36415; 71045; 71275; 80053; 81001; 83605; 84484; 85025; 85610; 85730; 87040; 87086; 87426; 93005; 94762; 97162; 97165; 97530; 97802; 99251; 99285; J7030; J7040; J7050; Q9967; A4216; G0463

== ENCOUNTER → 2021-09-08 11:59 | Outpatient (CLI) | payer MEDICARE, OTHER, SELFPAY ==
[2021-09-08 13:19] LABS: Anion Gap 4 (5-15); BUN 17 mg/dL (7-18); BUN/Creat Ratio 18.5 RATIO (10-20); Calcium,Total 8.4 mg/dL (8.5-10.1); Chloride 108 mmol/L (98-107); Creatinine, Serum 0.92 mg/dL (0.55-1.02); EST Glomerular Filtration Rate 64 mL/min (>60); Est Glom Filt Rate - Afr Amer 78 mL/min (>60); Glucose 166 mg/dL (74-106); Potassium 4.4 mmol/L (3.5-5.1); Sodium Level 142 mmol/L (136-145)
== END ==
PROVIDERS: PCP Family Medicine Geriatric Medicine; Visit Provider Family Medicine Geriatric Medicine
DX: E87.1 Hypo-osmolality and hyponatremia (principal)
CPT/HCPCS: 36415; 80048

== ENCOUNTER 2021-09-24 12:10 | Outpatient (CLI) | payer MEDICARE, OTHER, SELFPAY ==
[2021-09-24 12:29] LABS: Absolute Lymphocyte Count 4.18 X10^3/uL (0.83-4.51); Absolute Neutrophil Count 1.8 X10^3/uL (2.0-7.7); Basophil# 0.07 X10^3/uL; Eosinophil# 0.17 X10^3/uL; Eosinophils% 2.5 % (0-5); Hematocrit 43.5 % (37-47); Hemoglobin 13.6 g/dL (12.0-15.0); Lymphocyte # 4.18 X10^3/ul (0.83-4.51); Lymphocyte % 60.3 % (19-41); Mean Corp Hgb Conc 31.3 g/dL (32-36); Mean Corpuscular Hgb 28.6 pg (27.0-32.0); Mean Corpuscular Volume 91.4 fL (81-99); Mean Platelet Vol. 9.4 fl (6.2-12.0); Monocyte# 0.47 X10^3/uL; Monocyte% 6.8 % (0-10); NRBC Flagged by Analyzer 0 % (0-5); Neutrophil # 1.84 X10^3/uL (2.7-7.7); Neutrophil % 26.5 % (47-70); POSITIVE MORPHOLOGY YES; Platelet Count 470 K/mm3 (150-450); RBC Distribution Width CV 15.8 % (11.6-14.6); RBC Distribution Width SD 52.4 fl (35.1-43.9); Red Blood Count 4.76 M/mm3 (4.2-5.4); White Blood Count 6.9 K/mm3 (4.4-11.0)
[2021-09-24 12:33] LABS: Differential Indicated SCAN CRITERIA MET
[2021-09-24 13:01] LABS: Vitamin D,25 Hydroxy 56.4 ng/mL
[2021-09-24 13:02] LABS: Atypical Lymphocyte 1+ %; Differential Comment SCANNED; Reactive Lymphocyte 1+
[2021-09-24 13:12] LABS: ALB/GLOB Ratio 0.9 RATIO (0.9-2.4); AST(SGOT) 18 U/L (15-37); Alanine Aminotransfer ALT/SGPT 25 U/L (13-56); Albumin, Serum 3.3 g/dL (3.2-5.0); Alkaline Phosphatase 90 U/L (45-117); Anion Gap 5 (5-15); BUN 17 mg/dL (7-18); BUN/Creat Ratio 14.9 RATIO (10-20); Chloride 110 mmol/L (98-107); Creatinine, Serum 1.14 mg/dL (0.55-1.02); EST Glomerular Filtration Rate 50 mL/min (>60); Est Glom Filt Rate - Afr Amer 61 mL/min (>60); Globulin 3.7 g/dL (2.2-4.2); Glucose 94 mg/dL (74-106); Potassium 4.2 mmol/L (3.5-5.1); Sodium Level 140 mmol/L (136-145); Thyroid Stim Hormone (TSH) 1.68 uIU/mL (0.358-3.74)
== END 2021-09-24 23:59 | disposition short-term general hospital (02) ==
LOC: POLAB3 12:11
PROVIDERS: PCP Family Medicine Geriatric Medicine; Visit Provider Family Medicine Geriatric Medicine
DX: I10 Essential (primary) hypertension (principal); E55.9 Vitamin D deficiency, unspecified
CPT/HCPCS: 36415; 80053; 82306; 84443; 85025

== ENCOUNTER 2021-10-22 10:35 | Outpatient (CLI) | payer MEDICARE, OTHER, SELFPAY | END 2021-10-22 23:59 | disposition home or self-care (01) | LOC: LABSPEC 10:37 | PROVIDERS: PCP Family Medicine Geriatric Medicine; Visit Provider Family Medicine Geriatric Medicine | DX: N39.0 Urinary tract infection, site not specified (principal) | CPT/HCPCS: 87086; 87088 ==

== ENCOUNTER → 2022-05-26 | Outpatient (CLI) | payer MEDICARE, OTHER, SELFPAY ==
[2022-05-26 17:48] LABS: CRP 8.67 mg/L (0.0-3.0)
[2022-05-28 16:09] LABS: Endomysial Antibody IgA Negative (Negative)
[2022-05-29 07:18] LABS: Immunoglobulin A 174 mg/dL (64-422); t-Transglutaminase IgA <2 U/mL (0-3)
== END | disposition home or self-care (01) ==
LOC: MTLAB 15:55
PROVIDERS: PCP Family Medicine Geriatric Medicine; Referring Provider Internal Medicine Gastroenterology; Visit Provider Internal Medicine Gastroenterology
DX: R19.7 Diarrhea, unspecified (principal)
CPT/HCPCS: 36415; 82784; 83516; 86140; 86255

== ENCOUNTER 2022-08-10 20:19 | Inpatient (IN) | payer MEDICARE, OTHER, SELFPAY ==
[2022-08-10 20:21] VITALS: BP 152/74; PULSE 90; RESP 18; TEMP 37.8; O2SAT 93; BMI 37.8
--- NOTE | 2022-08-10 20:58 | EDS_ITS ---
HPI History of Present Illness Chief Complaint: Fever Informant: patient Onset/Context/Timing Onset: Yesterday Current Severity: Moderate Maximum Severity: Moderate Narrative Narrative: Patient presents with fever, cough, weakness. She became ill yesterday. She denies chest pain or shortness of breath. She does report urinary frequency but no dysuria. She lives alone and is having trouble taking care of herself. 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 Home Medications mv-min-vit C-ascorb So-Ugj-Taq-herb #124 333 mg-1.7 mg chewable tablet (Airborne (ascorbate sodium)) 1 tab PO DAILY 08/06/20 [History Last Taken Unknown] zicam PO 08/06/20 [History Last Taken Unknown] cholecalciferol (vitamin D3) 10 mcg (400 unit) capsule (Vitamin D3) 10 mcg PO DAILY 08/10/22 [History Last Taken Unknown] Allergy/AdvReac Type Severity Reaction Status Date / Time azithromycin Allergy unknown Verified 08/10/22 20:21 doxycycline [From Vibramycin] Allergy Other Verified 08/10/22 20:21 Penicillins Allergy Rash Verified 08/10/22 20:21 Sulfa (Sulfonamide Allergy Rash Verified 08/10/22 20:21 Antibiotics) erythromycin base AdvReac Upset Verified 08/10/22 20:21 Stomach Family History Father CVA (cerebral vascular accident) Diabetes Mother , Unaware of any maternal medical history. No problems noted. Surgical History History of appendectomy History of cholecystectomy History of hysterectomy Social History Smoking Status: Never smoker alcohol intake: never substance use type: does not use ROS ROS ED Constitutional Constitutional ED: Reports chills and fever(s) Eyes Eyes: Denies change in vision or discharge from eye(s) ENT ENT ED: Reports rhinorrhea and other Details: Congestion ; Denies discharge from eye(s) or sore throat Cardiovascular Cardiovascular: Denies chest pain or palpitations Respiratory/Chest Respiratory/Chest: Reports cough and sputum; Denies dyspnea Gastrointestinal Gastrointestinal: Denies abdominal pain, diarrhea, nausea or vomiting Genitourinary Genitourinary ED: Reports urinary frequency; Denies difficulty urinating or dysuria Musculoskeletal Musculoskeletal: Reports myalgias; Denies back pain or extremity pain Integumentary Denies Abrasions or rash Neurologic Neurologic: Reports weakness; Denies headache(s) Psychiatric Psychiatric: Denies anxiety or depression Allergic/Immunologic Allergic/Immunologic ED: Denies lip swelling or urticaria EXAM Physical Exam Const Vital Signs: 08/10/22 20:21 08/10/22 20:24 08/10/22 21:05 Temperature 100.1 F H Temperature Source Temporal Pulse Rate 90 Respiratory Rate 18 Respiratory Effort Normal Non-Labored Respiratory Depth Normal Respiratory Pattern Normal Blood Pressure 152/74 H Blood Pressure Mean 100 Pulse Ox 93 Oxygen Delivery Method Room Air Room Air 08/10/22 21:27 Temperature 99.7 F H Temperature Source Temporal Pulse Rate 84 Respiratory Rate 18 Respiratory Effort Respiratory Depth Respiratory Pattern Blood Pressure 136/72 H Blood Pressure Mean 93 Pulse Ox 93 Oxygen Delivery Method Room Air Positive well nourished and well developed General Appearance ED: well developed HEENT Reports normocephalic and head/scalp atraumatic Eyes PERRL and EOMs intact bilaterally Neck supple Chest Wall inspection of chest normal and palpation of chest normal Resp normal respiratory effort and clear to auscultation bilaterally Cardio regular rate and regular rhythm GI non-tender Auscultation: hypoactive bowel sounds Palpation: soft Extremity normal to inspection Neuro oriented x3 and no sensory deficits noted Neuro Narrative: Generalized weakness but no focal neurologic deficit. Sensorium / Orientation: alert Psych mental status grossly normal Skin no rashes or lesions noted MDM MDM MDM Narrative Medical decision making narrative: Patient given Tylenol for fever. Patient placed on nurse monitoring. EKG, chest x-ray, lab work obtained. Urinalysis ordered. Swabs for COVID and influenza obtained. Lab Data Attestation: I reviewed the patient's lab results. Labs: Laboratory Results - last 24 hr 08/10/22 08/10/22 08/10/22 20:33 20:33 20:33 WBC 7.5 RBC 4.69 Hgb 13.5 Hct 41.8 MCV 89.1 MCH 28.8 MCHC 32.3 RDW Std Deviation 45.9 H RDW Coeff of Dayo 14.3 Plt Count 205 MPV 10.4 Immature Gran % (Auto) 0.900 Neut % (Auto) 75.9 H Lymph % (Auto) 16.0 L [place] % (Auto) 6.9 Eos % (Auto) 0.0 Baso % (Auto) 0.3 Absolute Neuts (auto) 5.7 Absolute Lymphs (auto) 1.20 Nucleated RBC % 0 PT 14.4 INR 1.2 APTT 31.1 Sodium 138 Potassium 3.6 Chloride 105 Carbon Dioxide 24.0 Anion Gap 9 BUN 11 Creatinine 1.14 H Estim Creat Clear Calc 35.80 Est GFR (MDRD) Af Amer 60 Est GFR (MDRD) Non-Af 50 L BUN/Creatinine Ratio 9.6 L Glucose 147 H Lactic Acid Calcium 8.4 L Total Bilirubin 0.50 AST 15 ALT 18 Alkaline Phosphatase 114 Total Protein 6.5 Albumin 3.5 Globulin 3.0 Albumin/Globulin Ratio 1.2 Urine Color Urine Clarity Urine pH Ur Specific [place] Urine Protein Urine Glucose (UA) Urine Ketones Urine Occult Blood Urine Nitrite Urine Bilirubin Urine Urobilinogen Ur Leukocyte Esterase Urine RBC Urine WBC Ur Squamous Epith Cells Urine Bacteria Urine Mucus 08/10/22 08/10/22 20:33 21:30 WBC RBC Hgb Hct MCV MCH MCHC RDW Std Deviation RDW Coeff of Dayo Plt Count MPV Immature Gran % (Auto) Neut % (Auto) Lymph % (Auto) [place] % (Auto) Eos % (Auto) Baso % (Auto) Absolute Neuts (auto) Absolute Lymphs (auto) Nucleated RBC % PT INR APTT Sodium Potassium Chloride Carbon Dioxide Anion Gap BUN Creatinine Estim Creat Clear Calc Est GFR (MDRD) Af Amer Est GFR (MDRD) Non-Af BUN/Creatinine Ratio Glucose Lactic Acid 0.9 Calcium Total Bilirubin AST ALT Alkaline Phosphatase Total Protein Albumin Globulin Albumin/Globulin Ratio Urine Color Yellow Urine Clarity Clear Urine pH 6.5 Ur Specific [place] 1.010 Urine Protein 15 H Urine Glucose (UA) Normal Urine Ketones 5 H Urine Occult Blood 150 H Urine Nitrite Negative Urine Bilirubin Negative Urine Urobilinogen Normal Ur Leukocyte Esterase Negative Urine RBC 5-10 SEEN Urine WBC 0 SEEN Ur Squamous Epith Cells 0 SEEN Urine Bacteria RARE Urine Mucus 0 SEEN Radiography Chest X-Ray - ED: 1 View, Read by ED Physician, Chronic Changes and No Infiltrates Diagnostic Testing: Clinical Impression(s) from Imaging Studies Chest X-Ray 08/10/22 21:15 IMPRESSION: No radiographic evidence of acute cardiopulmonary disease. Electronically Signed: Elijah Gonzalez MD at 21:43 EST , EKG Initial EKG: Attestation: I personally reviewed and interpreted this EKG as follows: Interpretation: Sinus Rhythm (Sinus at 83 with lateral T inversion. No significant ST change.) Treatment and Re-Evaluation Narrative: CBC and chemistry studies unremarkable. White count is normal. Lactic acid is normal at 0.9. Urinalysis reveals no sign of acute infection. COVID test is negative. Influenza test is positive for flu A. Chest x-ray per my interpretation reveals no focal infiltrate. Radiology interpretation is reviewed and agrees. Patient be given Tamiflu. She is weak and unable to care for herself at home and does live alone. I will speak with hospitalist regarding observation. Discharge Plan Triage Chief Complaint: Fever Other Complaint: Cough Fatigue Complaint ED Provider: Claritza Ramirez Dx/Rx/DC Orders Clinical Impression: Influenza A, Weakness, Declining functional status Prescriptions: No Action Airborne (ascorbate sodium) 333-1.7 mg tablet,chewable 1 tab PO DAILY zicam PO cholecalciferol (vitamin D3) [Vitamin D3] 10 mcg (400 unit) Capsule 10 mcg PO DAILY Primary Care Provider: Ramin Amaya Chi Referrals: Ramin Amaya Chi, MD [Primary Care Provider] - Disposition Disposition: Acute Care Hospital [facility]
[2022-08-10] MEDS: 0.9% Normal Saline 1,000 ML 150 ML IV (21:07)
[2022-08-10] MEDS: Acetaminophen 500 MG Tablet 1000 MG PO (21:08)
[2022-08-10 21:11] LABS: Absolute Neutrophil Count 5.7 X10^3/uL (2.0-7.7); Basophil# 0.02 X10^3/uL; Basophil% 0.3 % (0-1); Hematocrit 41.8 % (37-47); Hemoglobin 13.5 g/dL (12.0-15.0); Mean Corp Hgb Conc 32.3 g/dL (32-36); Mean Corpuscular Hgb 28.8 pg (27.0-32.0); Mean Corpuscular Volume 89.1 fL (81-99); Mean Platelet Vol. 10.4 fl (6.2-12.0); Monocyte# 0.52 X10^3/uL; Monocyte% 6.9 % (0-10); NRBC Flagged by Analyzer 0 % (0-5); Neutrophil # 5.69 X10^3/uL (2.7-7.7); Neutrophil % 75.9 % (47-70); Platelet Count 205 K/mm3 (150-450); RBC Distribution Width CV 14.3 % (11.6-14.6); RBC Distribution Width SD 45.9 fl (35.1-43.9); Red Blood Count 4.69 M/mm3 (4.2-5.4); White Blood Count 7.5 K/mm3 (4.4-11.0)
--- NOTE | 2022-08-10 21:15 | RAD_ITS ---
INDICATION: fever EXAMINATION/TECHNIQUE: X-RAY - portable upright AP chest x-ray COMPARISON: 08/22/2021 FINDINGS: LINES/DEVICES: None. LUNGS: No consolidation, edema or effusion. No pneumothorax. MEDIASTINUM AND CARDIOVASCULAR STRUCTURES: Cardiac silhouette not enlarged. Central airways and mediastinal contour are unremarkable. BONES AND SOFT TISSUES: Unremarkable. RAD/Chest 1 View (Portable) IMPRESSION: No radiographic evidence of acute cardiopulmonary disease. Electronically Signed: Elijah Gonzalez MD at 21:43 EST ,
[2022-08-10 21:27] VITALS: BP 136/72; PULSE 84; RESP 18; TEMP 37.6; O2SAT 93
[2022-08-10 21:27] LABS: ALB/GLOB Ratio 1.2 RATIO (0.9-2.4); AST(SGOT) 15 U/L (15-37); Alanine Aminotransfer ALT/SGPT 18 U/L (13-56); Albumin, Serum 3.5 g/dL (3.2-5.0); Alkaline Phosphatase 114 U/L (45-117); Anion Gap 9 (5-15); BUN 11 mg/dL (7-18); BUN/Creat Ratio 9.6 RATIO (10-20); Calcium,Total 8.4 mg/dL (8.5-10.1); Chloride 105 mmol/L (98-107); Creatinine, Serum 1.14 mg/dL (0.55-1.02); EST Glomerular Filtration Rate 50 mL/min (>60); Est Glom Filt Rate - Afr Amer 60 mL/min (>60); Glucose 147 mg/dL (74-106); Lactic Acid 0.9 mmol/L (0.4-1.9); Potassium 3.6 mmol/L (3.5-5.1); Protein, Total 6.5 g/dL (6.4-8.2); Sodium Level 138 mmol/L (136-145)
[2022-08-10 21:29] LABS: International Normalized Ratio 1.2; Partial Thromboplast Time 31.1 Seconds (24.1-36.2); Prothrombin Time (Protime)PT. 14.4 SECONDS (11.7-14.9)
[2022-08-10 21:34] LABS: Mucous, Urine 0 SEEN /hpf (<or=2+); Squamous Epithelial Cells - UA 0 SEEN /hpf (5-10); White Blood Cells 0 SEEN /hpf (0-5)
[2022-08-10 21:41] LABS: Color, Urine Yellow (Yellow); Glucose, Dipstick Normal (Normal); Ketone-Dipstick 5 mg/dl (Negative); Leukocyte Esterase-Dipstick Negative /ul (Negative); Nitrite-Dipstick Negative (Negative); Occult Blood-Urine 150 /ul (Negative); Protein-Dipstick 15 mg/dl (Negative); Urine Bilirubin Dipstick Negative (Negative); Urine Clarity Clear (Clear); Urine Urobilinogen Normal (Normal); Urine pH 6.5 (5.0 - 8.0)
[2022-08-10 22:03] LABS: Red Blood Cells-Urine 5-10 SEEN /hpf (0-5)
[2022-08-10 22:04] LABS: Bacteria RARE /hpf (None Seen)
[2022-08-10 23:00] VITALS: BP 154/72; PULSE 94; RESP 14; TEMP 37.1; O2SAT 93
[2022-08-10 23:07] VITALS: BP 154/72; PULSE 94; RESP 14; O2SAT 93
[2022-08-10 23:15] VITALS: BP 154/73; PULSE 81; RESP 13; TEMP 37.1; O2SAT 92
[2022-08-11] VITALS (15 sets, daily range): BP systolic 134–152; BP diastolic 62–72; PULSE 66–85; RESP 16–20; TEMP 36.9–38.2; O2SAT 93–98; BMI 36.5
--- NOTE | 2022-08-11 00:20 | PCM.HP.STD ---
HPI - General General Date of Admission: 08/11/22 Date of Service: 08/11/22 Chief Complaint: flu-like symptoms HPI Narrative JUAN FRANCISCO TANNER, is a 72 F with a significant history of arthritis who presents to the emergency department with flulike symptoms. Of note patient lives at home by herself and she reports trouble walking up the stairs to use the bathroom because of weakness asscociated with her flu-like symptoms. Also she reports fever and chills. She reported home temperature of 101.4 Fahrenheit. She reports a productive cough of yellow sputum. She reports malaise; she reports watery eyes. 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 Home Medications mv-min-vit C-ascorb Ak-Biu-Kzf-herb #124 333 mg-1.7 mg chewable tablet (Airborne (ascorbate sodium)) 1 tab PO DAILY supplement 08/06/20 [History Last Taken 08/10/22] zicam 1 tab PO Q4H PRN PRN Cold Symptoms 08/06/20 [History Last Taken 08/10/22] cholecalciferol (vitamin D3) 10 mcg (400 unit) capsule (Vitamin D3) 10 mcg PO DAILY supplement 08/10/22 [History Last Taken 08/10/22] Allergy/AdvReac Type Severity Reaction Status Date / Time azithromycin Allergy unknown Verified 08/10/22 20:21 doxycycline [From Vibramycin] Allergy Other Verified 08/10/22 20:21 Penicillins Allergy Rash Verified 08/10/22 20:21 Sulfa (Sulfonamide Allergy Rash Verified 08/10/22 20:21 Antibiotics) erythromycin base AdvReac Upset Verified 08/10/22 20:21 Stomach Family History Father CVA (cerebral vascular accident) Diabetes Mother , Unaware of any maternal medical history. No problems noted. Surgical History History of appendectomy History of cholecystectomy History of hysterectomy Social History Smoking Status: Never smoker alcohol intake: never substance use type: does not use ROS ROS Narrative Pertinent positives and pertinent negatives as noted in HPI. All other systems were reviewed and are negative Vital Signs Vital Signs Vital Signs: 08/10/22 20:21 08/10/22 20:24 08/10/22 21:05 Temperature 100.1 F H Temperature Source Temporal Pulse Rate 90 Respiratory Rate 18 Respiratory Effort Normal Non-Labored Respiratory Depth Normal Respiratory Pattern Normal Blood Pressure 152/74 H Blood Pressure Mean 100 Pulse Ox 93 Oxygen Delivery Method Room Air Room Air 08/10/22 21:27 08/10/22 23:07 08/10/22 23:00 Temperature 99.7 F H 98.8 F Temperature Source Temporal Oral Pulse Rate 84 94 94 Respiratory Rate 18 14 14 Respiratory Effort Respiratory Depth Respiratory Pattern Blood Pressure 136/72 H 154/72 H 154/72 H Blood Pressure Mean 93 99 99 Pulse Ox 93 93 93 Oxygen Delivery Method Room Air Room Air Room Air 08/10/22 23:15 Temperature 98.8 F Temperature Source Oral Pulse Rate 81 Respiratory Rate 13 Respiratory Effort Respiratory Depth Respiratory Pattern Blood Pressure 154/73 H Blood Pressure Mean 100 Pulse Ox 92 Oxygen Delivery Method Room Air Weight Weight: 93.7 kg Body Mass Index (BMI) 37.8 Physical Exam Narrative Physical exam: General: Well-nourished, well-developed. Head: Normocephalic, atraumatic, no tenderness Eyes: Watery eyes. Injected conjunctiva. Vision is grossly intact. EOMI ENT, no trauma, moist mucous membranes, no rhinorrhea Neck: Nontender, full range of motion, no spinal tenderness, deformities, step-off CVS: Regular rate and rhythm. S1-S2 present. No murmur, gallop or rub. Respiratory : clear to auscultation bilaterally, chest wall nontender, no wheezing Abdomen: Soft, nontender, nondistended, normal bowel sounds, no masses : Deferred Back: Nontender, no CVA tenderness, no midline spinal tenderness, deformities, step-offs Extremities: Nontender full range of motion, no trauma Skin: Normal color, no trauma, abrasions Neuro: Alert, oriented, cranial nerves II through XII grossly intact. Psychiatry: Normal mood. Normal affect. Not depressed. Not anxious. Results Lab / Micro Data Result Diagrams: 08/10/22 20:33 08/10/22 20:33 Labs: Laboratory Results - last 24 hr 08/10/22 20:33: WBC 7.5, RBC 4.69, Hgb 13.5, Hct 41.8, MCV 89.1, MCH 28.8, MCHC 32.3, RDW Std Deviation 45.9 H, RDW Coeff of Dayo 14.3, Plt Count 205, MPV 10.4, Immature Gran % (Auto) 0.900, Neut % (Auto) 75.9 H, Lymph % (Auto) 16.0 L, [place] % (Auto) 6.9, Eos % (Auto) 0.0, Baso % (Auto) 0.3, Absolute Neuts (auto) 5.7, Absolute Lymphs (auto) 1.20, Nucleated RBC % 0 08/10/22 20:33: PT 14.4, INR 1.2, APTT 31.1 08/10/22 20:33: Sodium 138, Potassium 3.6, Chloride 105, Carbon Dioxide 24.0, Anion Gap 9, BUN 11, Creatinine 1.14 H, Estim Creat Clear Calc 35.80, Est GFR (MDRD) Af Amer 60, Est GFR (MDRD) Non-Af 50 L, BUN/Creatinine Ratio 9.6 L, Glucose 147 H, Calcium 8.4 L, Total Bilirubin 0.50, AST 15, ALT 18, Alkaline Phosphatase 114, Total Protein 6.5, Albumin 3.5, Globulin 3.0, Albumin/Globulin Ratio 1.2 08/10/22 20:33: Lactic Acid 0.9 08/10/22 21:30: Urine Color Yellow, Urine Clarity Clear, Urine pH 6.5, Ur Specific [place] 1.010, Urine Protein 15 H, Urine Glucose (UA) Normal, Urine Ketones 5 H, Urine Occult Blood 150 H, Urine Nitrite Negative, Urine Bilirubin Negative, Urine Urobilinogen Normal, Ur Leukocyte Esterase Negative, Urine RBC 5-10 SEEN, Urine WBC 0 SEEN, Ur Squamous Epith Cells 0 SEEN, Urine Bacteria RARE, Urine Mucus 0 SEEN Micro: Microbiology 08/10/22 21:05 Nasal Secretion SARS-CoV-2 & FLU Antigen (Rapid) - Final Influenzae A Radiology Impression Chest X-Ray 08/10/22 21:15 IMPRESSION: No radiographic evidence of acute cardiopulmonary disease. Electronically Signed: Elijah Gonzalez MD at 21:43 EST , Assessment & Plan Assessment/Plan (1) Influenza A: (2) Weakness: PLAN: Plan Influenza A infection Rapid COVID antigen negative. Influenza A antigen positive. Received Tamiflu at the emergency department and continued. Mucinex ordered. Tylenol for pain and fever ordered. CKD stage IIIa Stable DVT prophylaxis: Subcutaneous Lovenox ordered. Charges/Coding Visit Charges Inpatient E&M: 66312 Init Hosp L2
[2022-08-11] MEDS: Oseltamivir Phosphate 75 MG Capsule PO (00:28)
[2022-08-11] MEDS: guaiFENesin 1,200 MG Tablet 1200 MG PO ×3 (01:53→22:36)
[2022-08-11 06:56] LABS: Absolute Neutrophil Count 3.3 X10^3/uL (2.0-7.7); Basophil# 0.01 X10^3/uL; Basophil% 0.2 % (0-1); Eosinophil# 0.01 X10^3/uL; Eosinophils% 0.2 % (0-5); Lymphocyte % 28.1 % (19-41); Mean Corpuscular Hgb 28.4 pg (27.0-32.0); Mean Corpuscular Volume 91.7 fL (81-99); Mean Platelet Vol. 10.3 fl (6.2-12.0); Monocyte# 0.45 X10^3/uL; Monocyte% 8.4 % (0-10); NRBC Flagged by Analyzer 0 % (0-5); Platelet Count 188 K/mm3 (150-450); RBC Distribution Width CV 14.4 % (11.6-14.6); RBC Distribution Width SD 48.2 fl (35.1-43.9); Red Blood Count 4.58 M/mm3 (4.2-5.4); White Blood Count 5.3 K/mm3 (4.4-11.0)
[2022-08-11 07:20] LABS: Anion Gap 6 (5-15); BUN 11 mg/dL (7-18); BUN/Creat Ratio 11.2 RATIO (10-20); Calcium,Total 8.2 mg/dL (8.5-10.1); Chloride 108 mmol/L (98-107); Creatinine, Serum 0.98 mg/dL (0.55-1.02); EST Glomerular Filtration Rate 59 mL/min (>60); Est Glom Filt Rate - Afr Amer 72 mL/min (>60); Estimated Creatinine Clearance 41.64 ml/min; Glucose 119 mg/dL (74-106); Potassium 3.5 mmol/L (3.5-5.1); Sodium Level 139 mmol/L (136-145)
[2022-08-11] MEDS: Oseltamivir Phosphate 30 MG Capsule PO ×2 (09:40→22:35)
[2022-08-11] MEDS: Acetaminophen 325 MG Tablet 650 MG PO (09:40)
[2022-08-11] MEDS: Enoxaparin 40 MG/0.4 ML Syringe SC (09:40)
[2022-08-11] MEDS: Ipratropium/Albuterol Sulfate 3 ML AMPUL.NEB INHALATION ×3 (09:49→19:23)
[2022-08-11] MEDS: Benzonatate 100 MG Capsule 200 MG PO ×3 (11:05→22:35)
--- NOTE | 2022-08-11 11:50 | CASEMGMT ---
MARVIN RICE Assessment: Face to Face with pt for initial transition planning/care coordination assessment. MARVIN RICE introduced self and role at [facility], pt voices understanding and consents to assessment. Pt is A/O x4 and answers all questions appropriately at this time. Pt sitting up in chair on RA in no distress. Care providers, pharmacy, and demographics verified/updated. Admitting Dx: Acute Influenza A bronchitis PCP:Jose Luis Specialists:Pt denies. Preferred Pharmacy: [facility] [place] Insurance: [facility], [employer] Prescription Benefit: yes LNOK: Niru Herrera, dtr; Estephania Alanis, friend Living Arrangements: Pt lives alone in a two story house with 5 steps to enter with a rail. Pt reports she was I in ADL's prior to hospitalization and denies concerns at home. Transportation: Pt drives self and denies concerns with transportation. DME/HHC/SNF: Pt has a cane at home that she does not use. Pt denies hx of HHC or SNF stays. Pt states no concerns with going home at time of dc. Pt states currently she does not feel that she needs therapy and that she will be able to get up her steps at home prior to dc. Pt states no further concerns/needs. CM to follow. Advised pt to ask CM if any further question/concerns/needs arise, voices understanding. Pt Goal: Home Plan: Home
--- NOTE | 2022-08-11 15:26 | PN.HOSP_ITS ---
Subjective Subjective Follow-up for influenza B bronchitis. Objective Data Objective Data Vital Signs: Vital Signs Temp Pulse Resp BP Pulse Ox O2 Del Method 99.4 F H 80 16 147/67 H 94 Room Air 08/11/22 05:50 08/11/22 05:50 08/11/22 05:50 08/11/22 05:50 08/11/22 07:35 08/11/22 07:35 Oxygen Delivery Method Room Air Weight: 199 lb 11.821 oz Body Mass Index (BMI) 36.5 Intake & Output: Intake and Output for Last 24 Hours 08/09/22 08/10/22 08/11/22 23:59 23:59 23:59 Intake Total 582.5 / 582.5 Balance 582.5 / 582.5 Lab / Micro Data Result Diagrams: 08/11/22 06:25 08/11/22 06:25 Labs: Laboratory Results - last 24 hr 08/10/22 20:33: WBC 7.5, RBC 4.69, Hgb 13.5, Hct 41.8, MCV 89.1, MCH 28.8, MCHC 32.3, RDW Std Deviation 45.9 H, RDW Coeff of Dayo 14.3, Plt Count 205, MPV 10.4, Immature Gran % (Auto) 0.900, Neut % (Auto) 75.9 H, Lymph % (Auto) 16.0 L, [place] % (Auto) 6.9, Eos % (Auto) 0.0, Baso % (Auto) 0.3, Absolute Neuts (auto) 5.7, Absolute Lymphs (auto) 1.20, Nucleated RBC % 0 08/10/22 20:33: PT 14.4, INR 1.2, APTT 31.1 08/10/22 20:33: Sodium 138, Potassium 3.6, Chloride 105, Carbon Dioxide 24.0, Anion Gap 9, BUN 11, Creatinine 1.14 H, Estim Creat Clear Calc 35.80, Est GFR (MDRD) Af Amer 60, Est GFR (MDRD) Non-Af 50 L, BUN/Creatinine Ratio 9.6 L, Glucose 147 H, Calcium 8.4 L, Total Bilirubin 0.50, AST 15, ALT 18, Alkaline Phosphatase 114, Total Protein 6.5, Albumin 3.5, Globulin 3.0, Albumin/Globulin Ratio 1.2 08/10/22 20:33: Lactic Acid 0.9 08/10/22 21:30: Urine Color Yellow, Urine Clarity Clear, Urine pH 6.5, Ur Specific [place] 1.010, Urine Protein 15 H, Urine Glucose (UA) Normal, Urine Ketones 5 H, Urine Occult Blood 150 H, Urine Nitrite Negative, Urine Bilirubin Negative, Urine Urobilinogen Normal, Ur Leukocyte Esterase Negative, Urine RBC 5-10 SEEN, Urine WBC 0 SEEN, Ur Squamous Epith Cells 0 SEEN, Urine Bacteria RARE, Urine Mucus 0 SEEN 08/11/22 06:25: WBC 5.3, RBC 4.58, Hgb 13.0, Hct 42.0, MCV 91.7, MCH 28.4, MCHC 31.0 L, RDW Std Deviation 48.2 H, RDW Coeff of Dayo 14.4, Plt Count 188, MPV 10.3, Immature Gran % (Auto) 1.100 H, Neut % (Auto) 62.0, Lymph % (Auto) 28.1, [place] % (Auto) 8.4, Eos % (Auto) 0.2, Baso % (Auto) 0.2, Absolute Neuts (auto) 3.3, Absolute Lymphs (auto) 1.50, Nucleated RBC % 0 08/11/22 06:25: Sodium 139, Potassium 3.5, Chloride 108 H, Carbon Dioxide 25.0, Anion Gap 6, BUN 11, Creatinine 0.98, Estim Creat Clear Calc 41.64, Est GFR (MDRD) Af Amer 72, Est GFR (MDRD) Non-Af 59 L, BUN/Creatinine Ratio 11.2, Glucose 119 H, Calcium 8.2 L Micro: Microbiology 08/10/22 21:05 Nasal Secretion SARS-CoV-2 & FLU Antigen (Rapid) - Final Influenzae A Radiography Diagnostic Testing: Radiology Impression Chest X-Ray 08/10/22 21:15 IMPRESSION: No radiographic evidence of acute cardiopulmonary disease. Electronically Signed: Elijah Gonzalez MD at 21:43 EST , Physical Exam Narrative Patient admitted with fever, productive cough with yellow sputum, generalized body aches, malaise and weakness for last 2 days prior to admission. Home temperature 101.4 ?F. Patient with increased frequency but no dysuria. Patient on droplet precaution. Patient complaint of chest heaviness/tightness. Mild shortness of breath. Physical exam General: Alert, Oriented x3, Cooperative HEENT: Atraumatic, PERRLA, EOMI, Normocephalic Oral: Oral mucosa dry. No Gingival or Mucosal Lesions/ Ulcerations Neck: Supple, No JVD, Negative Carotid Bruits Lungs: Air entry diminished in both lungs. Bilateral wheezing and rhonchi. Cardiovascular: Regular rate, Regular Rhythm, Normal S1, Normal S2, No murmurs Abdomen: Bowel Sounds Present, Soft, Non Tender, Non-Distended : No renal angle tenderness. No suprapubic tenderness. Extremities: No edema, Capillary Refill Less than 3 Seconds Skin: No rashes, No breakdown Musculoskeletal: No Tenderness to Palpation of Joints or Extremities Neurological: Cranial nerves II-XII grossly intact, DTR 2+/4 and Symmetrical, Neuro grossly intact Psych/Mental Status: Normal Affect, Appropriate. Assessment & Plan Assessment/Plan (1) Influenza A: (2) Weakness: PLAN: Plan 1. Influenza A infection Rapid COVID antigen negative. Influenza A antigen positive. Received Tamiflu at the emergency department and continued. Patient was ordered DuoNeb every 4 hourly. Jinny Benjamin sent Mucinex ordered. Tylenol for pain and fever ordered. Patient has history of asthma but did not had asthma exacerbation in last 5 years. Patient not on maintenance inhaler. She states he has not used rescue For long time. 2. CKD stage IIIa: Monitor kidney function. 3. DVT prophylaxis: Subcutaneous Lovenox ordered. Microbiology Past 72 Hours 08/10/22 21:05 Nasal Secretion SARS-CoV-2 & FLU Antigen (Rapid) - Final Influenzae A Laboratory Results 08/10/22 20:33: WBC 7.5, RBC 4.69, Hgb 13.5, Hct 41.8, MCV 89.1, MCH 28.8, MCHC 32.3, RDW Std Deviation 45.9 H, RDW Coeff of Dayo 14.3, Plt Count 205, MPV 10.4, Immature Gran % (Auto) 0.900, Neut % (Auto) 75.9 H, Lymph % (Auto) 16.0 L, [place] % (Auto) 6.9, Eos % (Auto) 0.0, Baso % (Auto) 0.3, Absolute Neuts (auto) 5.7, Absolute Lymphs (auto) 1.20, Nucleated RBC % 0 08/10/22 20:33: PT 14.4, INR 1.2, APTT 31.1 08/10/22 20:33: Sodium 138, Potassium 3.6, Chloride 105, Carbon Dioxide 24.0, Anion Gap 9, BUN 11, Creatinine 1.14 H, Estim Creat Clear Calc 35.80, Est GFR (MDRD) Af Amer 60, Est GFR (MDRD) Non-Af 50 L, BUN/Creatinine Ratio 9.6 L, Glucose 147 H, Calcium 8.4 L, Total Bilirubin 0.50, AST 15, ALT 18, Alkaline Phosphatase 114, Total Protein 6.5, Albumin 3.5, Globulin 3.0, Albumin/Globulin Ratio 1.2 08/10/22 20:33: Lactic Acid 0.9 08/10/22 21:30: Urine Color Yellow, Urine Clarity Clear, Urine pH 6.5, Ur Specific [place] 1.010, Urine Protein 15 H, Urine Glucose (UA) Normal, Urine Ketones 5 H, Urine Occult Blood 150 H, Urine Nitrite Negative, Urine Bilirubin Negative, Urine Urobilinogen Normal, Ur Leukocyte Esterase Negative, Urine RBC 5-10 SEEN, Urine WBC 0 SEEN, Ur Squamous Epith Cells 0 SEEN, Urine Bacteria RARE, Urine Mucus 0 SEEN 08/11/22 06:25: WBC 5.3, RBC 4.58, Hgb 13.0, Hct 42.0, MCV 91.7, MCH 28.4, MCHC 31.0 L, RDW Std Deviation 48.2 H, RDW Coeff of Dayo 14.4, Plt Count 188, MPV 10.3, Immature Gran % (Auto) 1.100 H, Neut % (Auto) 62.0, Lymph % (Auto) 28.1, M adrienne % (Auto) 8.4, Eos % (Auto) 0.2, Baso % (Auto) 0.2, Absolute Neuts (auto) 3.3, Absolute Lymphs (auto) 1.50, Nucleated RBC % 0 08/11/22 06:25: Sodium 139, Potassium 3.5, Chloride 108 H, Carbon Dioxide 25.0, Anion Gap 6, BUN 11, Creatinine 0.98, Estim Creat Clear Calc 41.64, Est GFR (MDRD) Af Amer 72, Est GFR (MDRD) Non-Af 59 L, BUN/Creatinine Ratio 11.2, Glucose 119 H, Calcium 8.2 L
[2022-08-11] MEDS: 0.9% Saline Lock 10 ML Syringe IV (22:36)
[2022-08-12] VITALS (7 sets, daily range): BP systolic 139–142; BP diastolic 66–71; PULSE 61–77; RESP 18–20; TEMP 36.8–37.5; O2SAT 94–98
[2022-08-12] MEDS: Benzonatate 100 MG Capsule 200 MG PO (05:19)
[2022-08-12] MEDS: Ipratropium/Albuterol Sulfate 3 ML AMPUL.NEB INHALATION (07:20)
[2022-08-12] MEDS: Oseltamivir Phosphate 30 MG Capsule PO (09:13)
[2022-08-12] MEDS: Enoxaparin 40 MG/0.4 ML Syringe SC (09:13)
[2022-08-12] MEDS: guaiFENesin 1,200 MG Tablet 1200 MG PO (09:13)
--- NOTE | 2022-08-12 10:00 | DCINST_ITS ---
Discharge Instructions Diet Discharge Diet: No restrictions Activity Discharge Activity: Return to Normal Activity Weight Bearing Status: Weight bearing as tolerated Dressing / Incision Call your doctor if you observe: Fever of 101 or Higher, Coldness, Increased Pain, Numbness or Tingling, Change in Color, Inability to urinate, Inability to have a bowel movement, Using more than 1 pad per hour, Shortness of breath, Dizziness, Fainting spells, Swelling in the ankles, Chest pain, Prolonged hiccupping, Increased palpitations (irregular heartbeat), Calf discomfort and Uncontrolled pain Follow Up Care Test Results: Test results from this visit will be discussed in further detail at your follow- up appointment, if applicable. Discharge Plan Admission Admit Date/Time: 08/11/22 00:15 Primary Reason for Your Visit: Acute influenza A bronchitis. Attending Provider: Tom Hastings Primary Care Provider: Ramin Amaya Chi Consult[employer] Providers: Ant Galindo Discharge Orders/Prescriptions Prescriptions: New benzonatate 100 mg Capsule 200 mg PO TID PRN (Reason: cough) Qty: 30 0RF Mucus Relief ER 1,200 mg Tablet Extended Release 12hr 1,200 mg PO BID Qty: 10 0RF oseltamivir 30 mg Capsule 30 mg PO BID Qty: 7 0RF Continued Airborne (ascorbate sodium) 333-1.7 mg tablet,chewable 1 tab PO DAILY zicam 1 tab PO Q4H PRN PRN (Reason: Cold Symptoms) cholecalciferol (vitamin D3) [Vitamin D3] 10 mcg (400 unit) Capsule 10 mcg PO DAILY Referrals / Follow Up: Ramin Amaya Chi, MD [Primary Care Provider] - Disposition Disposition (needs filled in before D/C Order can be placed): Home, Self Care
--- NOTE | 2022-08-12 10:32 | DS.PCM_ITS ---
Providers Date of Admission: 08/11/22 Date of Discharge: 08/12/22 Primary Care Physician: Dr. Ramin Amaya MD Reason For Visit: ACUTE INFLUENZA A BRONCHITIS Diagnosis Discharge Diagnosis (1) Influenza A: Status: Acute Code(s): J10.1 - Influenza due to other identified influenza virus with other respiratory manifestations (2) Weakness: Status: Acute Code(s): R53.1 - Weakness Medications at Discharge Home Medications mv-min-vit C-ascorb No-Wxo-Tor-herb #124 333 mg-1.7 mg chewable tablet (Airborne (ascorbate sodium)) 1 tab PO DAILY supplement 08/06/20 zicam 1 tab PO Q4H PRN PRN Cold Symptoms 08/06/20 cholecalciferol (vitamin D3) 10 mcg (400 unit) capsule (Vitamin D3) 10 mcg PO DAILY supplement 08/10/22 benzonatate 100 mg capsule 200 mg PO TID PRN cough #30 caps 08/12/22 guaifenesin 1,200 mg tablet, extended release 12 hr (Mucus Relief ER) 1,200 mg PO BID #10 tabs 08/12/22 oseltamivir 30 mg capsule 30 mg PO BID #7 caps 08/12/22 Hospital Course Summary of Care Provided Hospital Course: This is 72-year-old female admitted with fever, productive cough with yellow sputum, generalized body aches, malaise and weakness for last 2 days prior to admission. Home temperature was 101.4 ?F. Patient with increased frequency but no dysuria. Patient on droplet precaution. Patient complaint of chest heaviness/tightness. Patient had mild shortness of breath for 1 day prior to admission Rapid COVID antigen negative. Influenza A antigen positive. 1. Influenza A bronchitis with mild respiratory distress/shortness of breath: Received Tamiflu at the emergency department and continued. Patient was ordered DuoNeb every 4 hourly. Jinny Benjamin sent Mucinex was given and prescription given for the same at the time of discharge. Tylenol for pain and fever as needed as needed. Patient has history of asthma but did not had asthma exacerbation in last 5 years. Patient not on maintenance inhaler. She states he has not used rescue inhaler for long time. I gave the option of prescribing albuterol inhaler but she said she will talk to PCP as she does not have symptoms. 2. CKD stage IIIa: Monitor kidney function. Kidney function at baseline 3. DVT prophylaxis: Subcutaneous Lovenox ordered. Clarification: Patient has influenza A bronchitis,; not influenza B. Microbiology Past 72 Hours 08/10/22 21:05 Nasal Secretion SARS-CoV-2 & FLU Antigen (Rapid) - Final Influenzae A 08/10/22 21:04 Urine, Catheterized Urine Culture - Final Mixed Gram Pos & Gram Neg Org Physical Exam Narrative Patient shortness of breath is much improved. No audible wheezing. Patient sitting on the chair. Wants to go home. Physical exam General: Alert, Oriented x3, Cooperative HEENT: Atraumatic, PERRLA, EOMI, Normocephalic Oral: Oral mucosa dry. No Gingival or Mucosal Lesions/ Ulcerations Neck: Supple, No JVD, Negative Carotid Bruits Lungs: Air entry bilateral equal. No wheezing or rhonchi. Lungs clear. No hypoxia or tachypnea. Cardiovascular: Regular rate, Regular Rhythm, Normal S1, Normal S2, No murmurs Abdomen: Bowel Sounds Present, Soft, Non Tender, Non-Distended : No renal angle tenderness. No suprapubic tenderness. Extremities: No edema, Capillary Refill Less than 3 Seconds Skin: No rashes, No breakdown Musculoskeletal: No Tenderness to Palpation of Joints or Extremities Neurological: Cranial nerves II-XII grossly intact, DTR 2+/4 and Symmetrical, Neuro grossly intact Psych/Mental Status: Normal Affect, Appropriate. Weight / BMI Weight Weight: 199 lb 11.821 oz Body Mass Index (BMI) 36.5 ABG / Lab / Microbiology Data Result Diagrams: 08/11/22 06:25 08/11/22 06:25 Microbiology: Microbiology 08/10/22 21:05 Nasal Secretion SARS-CoV-2 & FLU Antigen (Rapid) - Final Influenzae A 08/10/22 21:04 Urine, Catheterized Urine Culture - Final Mixed Gram Pos & Gram Neg Org D/C Instructions Discharge Diet: No restrictions Weight Bearing Status: Weight bearing as tolerated Call your doctor if you observe: Fever of 101 or Higher, Coldness, Increased Lex n, Numbness or Tingling, Change in Color, Inability to urinate, Inability to have a bowel movement, Using more than 1 pad per hour, Shortness of breath, Dizziness, Fainting spells, Swelling in the ankles, Chest pain, Prolonged hiccupping, Increased palpitations (irregular heartbeat), Calf discomfort and Uncontrolled pain Meaningful Use Info Meaningful Use Diagnoses (Choose all that apply): None applicable Discharge Plan Admission Admit Date/Time: 08/11/22 00:15 Primary Reason for Your Visit: Acute influenza A bronchitis. Attending Provider: Tom Hastings Primary Care Provider: Ramin Amaya Chi Consulting Providers: Ant Galindo Discharge Orders/Prescriptions Prescriptions: New benzonatate 100 mg Capsule 200 mg PO TID PRN (Reason: cough) Qty: 30 0RF Mucus Relief ER 1,200 mg Tablet Extended Release 12hr 1,200 mg PO BID Qty: 10 0RF oseltamivir 30 mg Capsule 30 mg PO BID Qty: 7 0RF Continued Airborne (ascorbate sodium) 333-1.7 mg tablet,chewable 1 tab PO DAILY zicam 1 tab PO Q4H PRN PRN (Reason: Cold Symptoms) cholecalciferol (vitamin D3) [Vitamin D3] 10 mcg (400 unit) Capsule 10 mcg PO DAILY Referrals / Follow Up: Ramin Amaya Chi, MD [Primary Care Provider] - Disposition Disposition (needs filled in before D/C Order can be placed): Home, Self Care Charges/Coding Addendum Addendum: Patient had shortness of breath, fever with wheezing and rhonchi and moderate respiratory distress at that time of admission. She got better with DuoNeb and Tamiflu in 2 days. Patient was admitted as inpatient but was discharged because of sooner recovery than expected at time of admission. Visit Charges Inpatient E&M: 86460 Disch Hosp
--- NOTE | 2022-08-12 11:00 | CASEMGMT ---
Pt noted to be ambulated in halls unassisted. MARVIN CM in to pt room, pt states she feels safe to go home. Denies any homegoing needs.
--- NOTE | 2022-08-12 11:16 | NURSING ---
pt states that she cannot get a hold of any of her friend to com pick her up. Pipe Inspector notifying marketing to see about hospital transportation home.
--- NOTE | 2022-08-12 11:22 | PHA.DC.MR ---
Pharmacy Service has performed discharge medication reconciliation for this patient. Home Medications mv-min-vit C-ascorb Ky-Yyp-Anx-herb #124 333 mg-1.7 mg chewable tablet (Airborne (ascorbate sodium)) 1 tab PO DAILY supplement 08/06/20 zicam 1 tab PO Q4H PRN PRN Cold Symptoms 08/06/20 cholecalciferol (vitamin D3) 10 mcg (400 unit) capsule (Vitamin D3) 10 mcg PO DAILY supplement 08/10/22 benzonatate 100 mg capsule 200 mg PO TID PRN cough #30 caps 08/12/22 guaifenesin 1,200 mg tablet, extended release 12 hr (Mucus Relief ER) 1,200 mg PO BID #10 tabs 08/12/22 oseltamivir 30 mg capsule 30 mg PO BID #7 caps 08/12/22 The patient's discharge medication list was reviewed for discrepancies and discrepancies were resolved.
== END 2022-08-12 12:22 | disposition home or self-care (01) | DRG 195 ==
LOC: ED 22:57 → MS3 08-11 00:48
PROVIDERS: Admitting Provider Hospitalist; Emergency Provider Emergency Medicine; PCP Family Medicine Geriatric Medicine; Visit Provider Internal Medicine
DX: J10.1 Influenza due to other identified influenza virus with other respiratory manifestations (principal); I12.9 Hypertensive chronic kidney disease with stage 1 through stage 4 chronic kidney disease, or unspecified chronic kidney disease; N18.31 Chronic kidney disease, stage 3a; J20.9 Acute bronchitis, unspecified; Z79.2 Long term (current) use of antibiotics; Z82.3 Family history of stroke; Z60.2 Problems related to living alone; R53.1 Weakness
CPT/HCPCS: 36415; 71045; 80048; 80053; 81001; 83605; 85025; 85610; 85730; 87040; 87086; 87088; 87428; 93005; 94640; 94762; 99285; J7030; A4216

== ENCOUNTER → 2022-09-30 | Outpatient (CLI) | payer MEDICARE, OTHER, SELFPAY ==
[2022-09-30 13:18] LABS: Absolute Lymphocyte Count 2.36 X10^3/uL (0.83-4.51); Absolute Neutrophil Count 2.4 X10^3/uL (2.0-7.7); Basophil# 0.05 X10^3/uL; Basophil% 0.9 % (0-1); Eosinophil# 0.16 X10^3/uL; Hematocrit 45.6 % (37-47); Hemoglobin 14.1 g/dL (12.0-15.0); Lymphocyte # 2.36 X10^3/ul (0.83-4.51); Lymphocyte % 44.2 % (19-41); Mean Corp Hgb Conc 30.9 g/dL (32-36); Mean Corpuscular Hgb 28.3 pg (27.0-32.0); Mean Corpuscular Volume 91.6 fL (81-99); Monocyte# 0.35 X10^3/uL; Monocyte% 6.6 % (0-10); NRBC Flagged by Analyzer 0 % (0-5); Neutrophil # 2.39 X10^3/uL (2.7-7.7); Neutrophil % 44.7 % (47-70); Platelet Count 261 K/mm3 (150-450); RBC Distribution Width CV 15.1 % (11.6-14.6); RBC Distribution Width SD 50.2 fl (35.1-43.9); Red Blood Count 4.98 M/mm3 (4.2-5.4); White Blood Count 5.3 K/mm3 (4.4-11.0)
[2022-09-30 13:34] LABS: Vitamin D,25 Hydroxy 43.4 ng/mL
[2022-09-30 13:49] LABS: ALB/GLOB Ratio 1.2 RATIO (0.9-2.4); AST(SGOT) 14 U/L (15-37); Alanine Aminotransfer ALT/SGPT 19 U/L (13-56); Albumin, Serum 3.7 g/dL (3.2-5.0); Alkaline Phosphatase 128 U/L (45-117); Anion Gap 9 (5-15); BUN 15 mg/dL (7-18); BUN/Creat Ratio 14.2 RATIO (10-20); Calcium,Total 9.1 mg/dL (8.5-10.1); Chloride 109 mmol/L (98-107); Creatinine, Serum 1.06 mg/dL (0.55-1.02); EST Glomerular Filtration Rate 54 mL/min (>60); Est Glom Filt Rate - Afr Amer 66 mL/min (>60); Globulin 3.1 g/dL (2.2-4.2); Glucose 100 mg/dL (74-106); Potassium 4.2 mmol/L (3.5-5.1); Protein, Total 6.8 g/dL (6.4-8.2); Sodium Level 140 mmol/L (136-145); Thyroid Stim Hormone (TSH) 1.99 uIU/mL (0.358-3.74)
== END | disposition home or self-care (01) ==
LOC: POLAB3 09:22
PROVIDERS: PCP Family Medicine Geriatric Medicine; Visit Provider Family Medicine Geriatric Medicine
DX: E55.9 Vitamin D deficiency, unspecified (principal); I10 Essential (primary) hypertension
CPT/HCPCS: 36415; 80053; 82306; 84443; 85025

== ENCOUNTER 2023-05-25 15:00 | Outpatient (RCR) | payer MEDICARE, OTHER, SELFPAY ==
--- NOTE | 2023-03-03 17:07 | HP.PTEVAL ---
Patient's Visit Information JUAN FRANCISCO TANNER is a 72 year old F referred to Physical Therapy by Dr. Ayan Crooks DO with a diagnosis of L peroneal tendonitis. Date of Evaluation: 03/03/23 Physical Therapist: Rojas Bernstein, PT, ATC - Visit Plan Frequency: 2-3x /Week Duration: 4-6 Weeks - Subjective Pt reports she has had L lateral ankle pain for approximately 2 months. Pt reports she has been resting and icing her ankle in order for it to feel a little better. Pt has also been taking Advil faithfully to aid with her pain. Pt reports she is feeling a little better now at this time. Pt notes she has also been wearing a lace up ankle brace for support. Pt reports prolonged walking and standing also increase her pain. Pt also notes she works at [employer] where she has to walk a lot which is really touch on her. Pt reports she has stairs at home that she has to negotiate which is really touch making her negotiate one step at a time. Pt reports she has sleep difficulty at night without taking her Advil prior to bed. Pt reports L ankle pain 1/10 while sitting here in the clinic, 8/10 at worst (with prolonged standing and walking) - Pain L ankle pain Pain Intensity (Out of 10): 1 Pain Intensity Range: 8 - Objective Neuro: B LE sensation is WNL to light touch. Palpation: Pt is very sore along the distribution of the peroneal muscle group. No obvious deformity noted. ROM: R ankle DF= 14, PF= 45 degrees; L ankle DF= 10, PF= 40 degrees. MMT: R ankle DF= 32, PF= 50; L ankle DF= 21, PF= 23. Gait: Pt ambulates with a mild limp of the L LE. Slow cadance. - Balance/Special Test Scores Lower Extremity Functional Score: 33 - Goals Goal 1:: Decrease L ankle pain x 50% to aid with sleep Goal Time Frame: 4-6 Weeks Goal 2:: Increase L ankle DF ROM x 7-10 degrees to aid with decreasing pain Goal Time Frame: 4-6 Weeks Goal 3:: Increase L ankle strength x 20 #F to aid with stair negotiation Goal Time Frame: 4-6 Weeks Goal 4:: I with HEP Goal Time Frame: 4-6 Weeks - Rehabilitation Potential Physical Therapy Diagnosis: L ankle pain, weakness, and limited ROM secondary to L peroneal tendonitis Rehabilitation Potential: Good - Anticipated Interventions Patient/Client Instruction: Educate patient on: Condition, Plan of Care For the Purpose of:: To improve self management Therapeutic Exercise to Include: Strength training, Endurance training, Flexibilty training, Active ROM, Dynamic Lumbar Stabilization For the Purpose of:: To decrease pain, To increase ROM, To improve muscle performance and motor function Cryotherapy (ice pack, ice massage): Yes Ultrasound (thermal/non thermal): Yes For the Purpose of:: To decrease pain Thank you for the opportunity to evaluate your patient. For Medicare and Medicare HMO plans, please review the plan of care and approve it. It will need to be FAXED BACK to us at [phone] for Medicare purposes. For Medicare only, by signing this I certify the plan of care. Please let me know if there are questions or concerns regarding this plan of care. Physician Signature: Date:
--- NOTE | 2023-03-31 16:52 | HP.PTREVAL ---
Re-Evaluation Intro: Dr. Ayan Crooks, DO, It has been my pleasure to treat JUAN FRANCISCO TANNER over the last 9 visits for L peroneal tendonitis. Please see the progress note below for an update on the physical therapy plan of care! Subjective Subjective: I am still sore, especially after work. Objective Objective/Function: L ankle pain ranges from 2-4/10 L ankle MMT: DF= 35, PF= 50, Inv= 23, Ever= 35 #F L ankle ROM: DF= 15 degrees Pt is showing significant progress at this time. Still limited with work requirements at this time Plan Plan Plan: cont with POC consisting of US, stretching, and ther ex. for L ankle Balance/Gait/Functional tests Balance/Special Test Scores Lower Extremity Functional Score: 49 Goals Goals Goal 1:: Decrease L ankle pain x 50% to aid with sleep Goal Time Frame: 4-6 Weeks Goal Progress: Progressing Goal 2:: Increase L ankle DF ROM x 7-10 degrees to aid with decreasing pain Goal Time Frame: 4-6 Weeks Goal Progress: Progressing Goal 3:: Increase L ankle strength x 20 #F to aid with stair negotiation Goal Time Frame: 4-6 Weeks Goal Progress: Progressing Goal 4:: I with HEP Goal Time Frame: 4-6 Weeks Goal Progress: Progressing Anticipated Interventions Anticipated Interventions Patient/Client Instruction: Educate patient on: Condition and Plan of Care For the Purpose of:: To improve self management Therapeutic Exercise to Include: Strength training, Endurance training, Flexibilty training, Active ROM and Dynamic Lumbar Stabilization For the Purpose of:: To decrease pain, To increase ROM and To improve muscle performance and motor function Cryotherapy (ice pack, ice massage): Yes Ultrasound (thermal/non thermal): Yes For the Purpose of:: To decrease pain Re-Evaluation Ending Re-evaluation ending: Please do not hesitate to contact me at [phone] by phone or if you have questions or concerns regarding this new plan of care! Sincerely, Rojas Bernstein, PT, ATC
--- NOTE | 2023-04-15 15:07 | HP.PTREVAL_ITS ---
Re-Evaluation Intro: Dr. Ayan Crooks, DO, It has been my pleasure to treat JUAN FRANCISCO TANNER over the last 12 visits for L peroneal tendonitis. Please see the progress note below for an update on the physical therapy plan of care! Subjective Subjective: My pain still comes and goes. Objective Objective/Function: L ankle pain ranges from 1-7/10 L ankle MMT: DF= 37, PF= 53, Inv= 41, ever= 29 #F L ankle DF ROM: 7 degrees pt is progressing well at this time but continues to experience pain with most prolonged activity Plan Plan Plan: cont with POC consisting of US, stretching, and ther ex. for L ankle Balance/Gait/Functional tests Balance/Special Test Scores Lower Extremity Functional Score: 43 Goals Goals Goal 1:: Decrease L ankle pain x 50% to aid with sleep Goal Time Frame: 4-6 Weeks Goal Progress: Progressing Goal 2:: Increase L ankle DF ROM x 7-10 degrees to aid with decreasing pain Goal Time Frame: 4-6 Weeks Goal Progress: Progressing Goal 3:: Increase L ankle strength x 20 #F to aid with stair negotiation Goal Time Frame: 4-6 Weeks Goal Progress: Progressing Goal 4:: I with HEP Goal Time Frame: 4-6 Weeks Goal Progress: Progressing Anticipated Interventions Anticipated Interventions Patient/Client Instruction: Educate patient on: Condition and Plan of Care For the Purpose of:: To improve self management Therapeutic Exercise to Include: Strength training, Endurance training, F lexibilty training, Active ROM and Dynamic Lumbar Stabilization For the Purpose of:: To decrease pain, To increase ROM and To improve muscle performance and motor function Cryotherapy (ice pack, ice massage): Yes Ultrasound (thermal/non thermal): Yes For the Purpose of:: To decrease pain Re-Evaluation Ending Re-evaluation ending: Please do not hesitate to contact me at [phone] by phone or if you have questions or concerns regarding this new plan of care! Sincerely, Rojas Bernstein, PT, ATC
--- NOTE | 2023-05-25 15:32 | HP.PTDCSUM ---
Discharge Summary D/C summary: It has been my pleasure to treat JUAN FRANCISCO TANNER referred by Dr. Ayan Crooks DO, with the diagnosis of L peroneal tendonitis for a total of 19 visit(s). Discharge Date: Please see the following information for a summary of their discharge status. Subjective Subjective: I dont have pain unless I step on it wrong. Pain L ankle pain: Pain Intensity (Out of 10): 0 Overall Improvement % Improvement: 95 Objective Objective/Function: L ankle pain 0/10 L ankle DF ROM: 15 degrees L ankle MMT: DF= 40 #F; PF 46 #F; Ever 35 #F Pt is I with HEP Goals Goal 1:: Decrease L ankle pain x 50% to aid with sleep Goal Progress: Goal Met Goal 2:: Increase L ankle DF ROM x 7-10 degrees to aid with decreasing pain Goal Progress: Goal Met Goal 3:: Increase L ankle strength x 20 #F to aid with stair negotiation Goal Progress: Goal Met Goal 4:: I with HEP Goal Progress: Goal Met Plan Plan: Discharge to HEP D/C Information d/c sentence: If there are questions or concerns regarding this patient's physical therapy, please feel free to call me at [phone]. Thank you for the referral of this patient. Sincerely, Rojas Bernstein, PT, ATC Balance/Gait/Functional tests Balance/Special Test Scores Lower Extremity Functional Score: 60 Improvement % Improvement: 95
== END 2023-05-25 19:00 | disposition home or self-care (01) ==
LOC: PT 15:00
PROVIDERS: PCP Family Medicine Geriatric Medicine; Referring Provider Student in an Organized Health Care Education/Training Program; Visit Provider Student in an Organized Health Care Education/Training Program
DX: M76.72 Peroneal tendinitis, left leg (principal); M25.572 Pain in left ankle and joints of left foot
CPT/HCPCS: 97035; 97110; 97140; 97161; 97164

== ENCOUNTER → 2023-10-06 | Outpatient (CLI) | payer MEDICARE, OTHER, SELFPAY ==
[2023-10-06 10:09] LABS: Absolute Lymphocyte Count 4.55 X10^3/uL (0.83-4.51); Absolute Neutrophil Count 4.8 X10^3/uL (2.0-7.7); Basophil# 0.07 X10^3/uL; Basophil% 0.7 % (0-1); Eosinophil# 0.14 X10^3/uL; Eosinophils% 1.4 % (0-5); Hematocrit 47.3 % (37-47); Hemoglobin 15.1 g/dL (12.0-15.0); Lymphocyte # 4.55 X10^3/ul (0.83-4.51); Lymphocyte % 44.3 % (19-41); Mean Corp Hgb Conc 31.9 g/dL (32-36); Mean Corpuscular Hgb 28.4 pg (27.0-32.0); Mean Corpuscular Volume 88.9 fL (81-99); Mean Platelet Vol. 10.3 fl (6.2-12.0); Monocyte# 0.59 X10^3/uL; Monocyte% 5.8 % (0-10); NRBC Flagged by Analyzer 0 % (0-5); Neutrophil # 4.81 X10^3/uL (2.7-7.7); Neutrophil % 46.8 % (47-70); Platelet Count 357 K/mm3 (150-450); RBC Distribution Width CV 14.2 % (11.6-14.6); RBC Distribution Width SD 45.6 fl (35.1-43.9); Red Blood Count 5.32 M/mm3 (4.2-5.4); White Blood Count 10.3 K/mm3 (4.4-11.0)
[2023-10-06 10:34] LABS: ALB/GLOB Ratio 1.1 RATIO (0.9-2.4); AST(SGOT) 15 U/L (15-37); Alanine Aminotransfer ALT/SGPT 25 U/L (13-56); Albumin, Serum 3.6 g/dL (3.2-5.0); Alkaline Phosphatase 145 U/L (45-117); Anion Gap 8 (5-15); BUN 32 mg/dL (7-18); BUN/Creat Ratio 23.9 RATIO (10-20); Calcium,Total 9.5 mg/dL (8.5-10.1); Chloride 107 mmol/L (98-107); Cholesterol 239 mg/dL (200); Creatinine, Serum 1.34 mg/dL (0.55-1.02); EST Glomerular Filtration Rate 41 mL/min (>60); Est Glom Filt Rate - Afr Amer 50 mL/min (>60); Globulin 3.4 g/dL (2.2-4.2); Glucose 113 mg/dL (74-106); High Density Lipoprotein 32 mg/dL; Potassium 3.8 mmol/L (3.5-5.1); Sodium Level 139 mmol/L (136-145); Thyroid Stim Hormone (TSH) 5.43 uIU/mL (0.358-3.74); Triglycerides 374 mg/dL; Very Low Density Lipoprotein 75 mg/dL (5-40)
[2023-10-06 10:41] LABS: Vitamin D,25 Hydroxy 63.2 ng/mL
== END | disposition home or self-care (01) ==
LOC: POLAB3 09:01
PROVIDERS: PCP Family Medicine Geriatric Medicine; Visit Provider Family Medicine Geriatric Medicine
DX: I10 Essential (primary) hypertension (principal); E55.9 Vitamin D deficiency, unspecified; E78.5 Hyperlipidemia, unspecified
CPT/HCPCS: 36415; 80053; 80061; 82306; 84443; 85025

== ENCOUNTER → 2023-11-03 | Outpatient (CLI) | payer MEDICARE, OTHER, SELFPAY ==
--- NOTE | 2023-11-03 14:10 | BD_ITS ---
STUDY: DUAL ENERGY X-RAY ABSORPTIOMETRY / DXA REASON FOR EXAM: Female, 73 years old. M810 TECHNIQUE: Bone Mineral Density (BMD) measurements of lumbar spine and bilateral hips were obtained. COMPARISON: Comparison is made with prior study dated October 28, 2016. FINDINGS: Lumbar Spine (L1-L4): g/cm2 (0.841) / T-score (-1.9) / Z-score (0.4) Findings are suggestive of osteopenia with a moderate fracture risk. Left Femur Total: g/cm2 (0.810) / T-score (-1.1) / Z-score (0.6) Left Femoral Neck: g/cm2 (0.636) / T-score (-1.9) / Z-score (0.0) Right Femur Total: g/cm2 (0.844) / T-score (-0.8) / Z-score (0.8) Right Femoral Neck: g/cm2 (0.736) / T-score (-1.0) / Z-score (0.9) The T-Scores on the most recent prior examination were: Lumbar Spine (L1-L4): There has been improvement of bone density since the previous examination. Left Femur Total: which represents an improvement of 9%. Right Femur Total: which represents a worsening of 1.2%. BD/Dexa Bone Density Study IMPRESSION: The patient is considered osteopenic as outlined below according to World [place] Organization (WHO) criteria with a moderate fracture risk. There has been improvement of bone density since the previous examination. Reference Information: The T-score is the number of standard deviations above or below the standard which is normal for young adults at their peak bone mineral density. The World Health Organization (WHO) interprets the T-scores as follows: Above -1 Normal bone density Between -1 and -2.5 Osteopenia Equal to / or below -2.5 Osteoporosis As a practical clinical guideline, osteopenia may be graded as follows: Mild -1 through -1.5 Moderate -1.6 through -2.0 Severe -2.1 through -2.4 The Z-score is the number of standard deviations above or below age-matched controls. A Z-score of less than -1.5 would be considered abnormal. References: 1. NIH Osteoporosis and Related Bone Diseases www osteo.org 2. International Society for Clinical Densitometry www iscd.org 3. National Osteoporosis Foundation www nof.org Electronically Signed: Velasquez Hughes MD at 9:23 EST ,
== END | disposition home or self-care (01) ==
LOC: OPBD 13:43
PROVIDERS: PCP Family Medicine Geriatric Medicine; Referring Provider Family Medicine Geriatric Medicine; Visit Provider Family Medicine Geriatric Medicine
DX: M81.0 Age-related osteoporosis without current pathological fracture (principal)
CPT/HCPCS: 77080

== ENCOUNTER → 2024-05-15 | Outpatient (CLI) | payer MEDICARE, OTHER, SELFPAY | END | disposition home or self-care (01) | PROVIDERS: PCP Family Medicine Geriatric Medicine; Visit Provider Family Medicine Geriatric Medicine | DX: R68.83 Chills (without fever) (principal) | CPT/HCPCS: 36415; 87631 ==

== ENCOUNTER → 2024-05-25 | Outpatient (CLI) | payer MEDICARE, OTHER, SELFPAY ==
--- NOTE | 2024-05-25 14:43 | ECHOD_ITS ---
Version 2 Reason For Study: DYSPNEA Procedure This was a 2D Doppler, Color Flow transthoracic echocardiogram. Exam performed in department. Left Ventricle Normal LV size. The estimated ejection fraction is 70 %. No evidence for diastolic dysfunction. No regional wall motion abnormalities noted. Right Ventricle Normal RV size. Normal systolic function. Atria The left and right atria are normal. No doppler evidence for ASD. Mitral Valve There is no mitral valve stenosis. No mitral valve insufficiency. Tricuspid Valve There is no tricuspid stenosis. Unable to estimate RV systolic pressure due to inadequate jet, pulmonary artery pressure probably normal. Aortic Valve Trisinus/trileaflet aortic valve. There is no aortic stenosis. No aortic valve insufficiency. Pulmonic Valve There is no pulmonic valvular stenosis. No pulmonic valve insufficiency. Great Vessels Normal aortic root. Pericardium/Pleural Small pericardial effusion. MMode/2D Measurements & Calculations LVIDd: 3.8 cm IVSd: 1.2 cm LAV(MOD-bp): 24.5 ml LVIDs: 2.3 cm LVPWd: 1.1 cm LAV(MOD-bp) Indexed: 12.7 ml/m2 FS: 38.9 % LAV(MOD-sp2): 24.4 ml LAV(MOD-sp4): 23.7 ml SV(MOD-sp4): 35.0 ml SV(sp4-el): 34.8 ml LVAd ap4: 17.8 cm2 LVLd ap4: 6.3 cm EDV(MOD-sp4): 43.6 ml EDV(sp4-el): 42.8 ml LVAs ap4: 7.2 cm2 LVLs ap4: 5.4 cm ESV(MOD-sp4): 8.6 ml ESV(sp4-el): 8.0 ml EF(MOD-sp4): 80.3 % EF(sp4-el): 81.3 % LA A4 area: 12.5 cm2 LA dimension(2D): 2.7 cm RA A4 area: 9.4 cm2 Time Measurements MV dec time: 0.22 sec Doppler Measurements & Calculations MV E max prakash: 77.6 cm/sec Lat Peak E' Prakash: 7.3 cm/sec Med Peak E' Prakash: 5.1 cm/sec MV A max prakash: 90.4 cm/sec E/E' lat: 10.6 E/E' med: 15.2 MV E/A: 0.86 MV V2 max: 83.4 cm/sec MV dec slope: 359.6 cm/sec2 Ao V2 max: 156.9 cm/sec MV max P.8 mmHg Ao max P.8 mmHg MV V2 mean: 44.0 cm/sec Ao V2 mean: 100.4 cm/sec MV mean P.98 mmHg Ao mean P.7 mmHg MV V2 VTI: 33.4 cm Ao V2 VTI: 32.1 cm AV (velocity ratio): 0.86 LV V1 max: 143.6 cm/sec PA V2 max: 72.7 cm/sec LV V1 max P.3 mmHg PA V2 mean: 55.7 cm/sec LV V1 mean P.8 mmHg LV V1 mean: 88.3 cm/sec LV V1 VTI: 27.6 cm ECHO/Echo Complete Interpretation Summary The estimated ejection fraction is 70 %. No evidence for diastolic dysfunction. Small pericardial effusion. Ordering Physician: Joseph Figueroa Referring Physician: Joseph Figueroa Performed By: Ligia Ruelas RCS
== END | disposition home or self-care (01) ==
LOC: CVS 14:42
PROVIDERS: PCP Family Medicine Geriatric Medicine; Referring Provider Internal Medicine Cardiovascular Disease; Visit Provider Internal Medicine Cardiovascular Disease
DX: R06.00 Dyspnea, unspecified (principal)
CPT/HCPCS: 93306

== ENCOUNTER → 2024-10-17 | Outpatient (CLI) | payer MEDICARE, OTHER, SELFPAY ==
[2024-10-17 10:20] LABS: Absolute Lymphocyte Count 3.67 X10^3/uL (0.83-4.51); Absolute Neutrophil Count 3.6 X10^3/uL (2.0-7.7); Basophil# 0.07 X10^3/uL; Basophil% 0.9 % (0-1); Eosinophil# 0.11 X10^3/uL; Eosinophils% 1.4 % (0-5); Hematocrit 51.7 % (37-47); Hemoglobin 16.2 g/dL (12.0-15.0); Lymphocyte # 3.67 X10^3/ul (0.83-4.51); Lymphocyte % 45.8 % (19-41); Mean Corp Hgb Conc 31.3 g/dL (32-36); Mean Corpuscular Hgb 28.8 pg (27.0-32.0); Mean Corpuscular Volume 91.8 fL (81-99); Mean Platelet Vol. 11.4 fl (6.2-12.0); Monocyte% 6.2 % (0-10); NRBC Flagged by Analyzer 0 % (0-5); Neutrophil # 3.59 X10^3/uL (2.7-7.7); Neutrophil % 44.8 % (47-70); Platelet Count 316 K/mm3 (150-450); RBC Distribution Width CV 14.6 % (11.6-14.6); RBC Distribution Width SD 48.3 fl (35.1-43.9); Red Blood Count 5.63 M/mm3 (4.2-5.4)
[2024-10-17 10:51] LABS: Vitamin D,25 Hydroxy 33.1 ng/mL
[2024-10-17 11:13] LABS: ALB/GLOB Ratio 1.2 RATIO (0.9-2.4); AST(SGOT) 14 U/L (15-37); Alanine Aminotransfer ALT/SGPT 17 U/L (13-56); Albumin, Serum 3.9 g/dL (3.2-5.0); Alkaline Phosphatase 163 U/L (45-117); Anion Gap 10 (5-15); BUN 16 mg/dL (7-18); BUN/Creat Ratio 9.8 RATIO (10-20); Calcium,Total 9.1 mg/dL (8.5-10.1); Chloride 111 mmol/L (98-107); Creatinine, Serum 1.63 mg/dL (0.55-1.02); EST Glomerular Filtration Rate 33 mL/min (>60); Est Glom Filt Rate - Afr Amer 40 mL/min (>60); Globulin 3.3 g/dL (2.2-4.2); Glucose 133 mg/dL (74-106); Potassium 3.9 mmol/L (3.5-5.1); Protein, Total 7.2 g/dL (6.4-8.2); Sodium Level 138 mmol/L (136-145)
== END | disposition home or self-care (01) ==
LOC: POLAB3 10:00
PROVIDERS: PCP Family Medicine Geriatric Medicine; Visit Provider Family Medicine Geriatric Medicine
DX: I10 Essential (primary) hypertension (principal); E55.9 Vitamin D deficiency, unspecified
CPT/HCPCS: 36415; 80053; 82306; 84443; 85025

== ENCOUNTER → 2025-03-13 | Outpatient (CLI) | payer MEDICARE, OTHER, SELFPAY ==
--- NOTE | 2025-03-13 16:22 | CT_ITS ---
PROCEDURE: ABDOMEN/PELVIS WITH CONTRAST 03/13/2025 REASON FOR EXAM: DIVERTICULITIS OF LG INTESTINE W/O PERFORATION TECHNIQUE: ABDOMEN/PELVIS WITH IV and oral CONTRAST Coronal and Sagittal reconstruction series were provided. CONTRAST: Isovue-300 VOLUME: 97 mL One or more dose reduction techniques were used (e.g., Automated exposure control, adjustment of the mA and/or kV according to patient size, use of iterative reconstruction technique. RADIATION DOSE SUMMARY: CTDlvol: 23.3 mGy DLP: 1113 mGycm COMPARISON: CT abdomen and pelvis on 07/04/2018 FINDINGS: Lung bases: Unremarkable Liver: Mild intrahepatic biliary ductal dilatation, unchanged. Subcentimeter hypodensity in the right hepatic lobe, too small to characterize and unchanged. Gallbladder: Surgically absent. Spleen: Normal size. Pancreas: Normal size without evidence of mass surrounding inflammation or ductal dilation. Adrenals: Unremarkable Kidneys: No stone or hydronephrosis. Left renal pelvic cysts Bladder: Unremarkable Reproductive Organs: Prior hysterectomy. Adnexal regions are unremarkable. Bowel: No obstruction or inflammation. There is oral contrast in the small bowel and cecum. Colonic diverticulosis without wall thickening or pericolonic inflammatory stranding to suggest acute diverticulitis. Prominent colonic stool burden. Surgically absent appendix. Lymph nodes: Unremarkable. Vasculature: Mild diffuse atherosclerotic calcifications are noted. Bones: Degenerative changes of the spine. L5 pars defects with grade 1 anterolisthesis of L5 on S1. Soft tissues: There are calcifications and foci of subcutaneous emphysema throughout the gluteal soft tissues, unchanged and likely related to subcutaneous injections. CT/Abdomen/Pelvis WITH Contrast IMPRESSION: 1. No acute intra-abdominal abnormality. There is colonic diverticulosis with out current evidence of acute diverticulitis. 2. Prominent colonic stool burden, correlate for clinical symptoms of constipa tion. Reading Location: [id number]
--- NOTE | 2025-03-13 16:42 | RAD_ITS ---
PROCEDURE: THORACIC SPINE 3 VIEWS 03/13/2025 REASON FOR EXAM: RACICULOPATHY TECHNIQUE: THORACIC SPINE 3 VIEWS COMPARISON: None FINDINGS: No acute thoracic spine fracture or subluxations. Alignment is grossly within normal limits. Mild multilevel degenerative changes of the thoracic spine. No focal consolidations. No pleural effusion or pneumothorax. Calcified aortic arch. Cardiac silhouette is within normal limits. RAD/Thoracic Spine 3 Views IMPRESSION: No acute thoracic spine fracture or subluxations. Consider CT/MR if there is c ontinued concern for spinal pathology. Reading Location: [id number]
--- NOTE | 2025-03-13 16:42 | RAD_ITS ---
PROCEDURE: L/S SPINE MIN 4 VIEWS 03/13/2025 REASON FOR EXAM: RADICULOPATHY TECHNIQUE: L/S SPINE MIN 4 VIEWS COMPARISON: None. FINDINGS: No evidence of acute fracture or dislocation. Grade 1, borderline 2 anterolisthesis of L5 on S1 with probable L5 bilateral pars defects. [id number] disc space narrowing at L5-S1. Mild degenerative changes of the other visualized levels. RAD/L/S Spine Min 4 Views IMPRESSION: Spondylosis. Grade 1, borderline to anterolisthesis of L5 on S1 with probable L5 pars defect s. Reading Location: [place] [id number]
--- NOTE | 2025-03-13 16:42 | RAD_ITS ---
PROCEDURE: L/S SPINE MIN 4 VIEWS 03/13/2025 REASON FOR EXAM: RADICULOPATHY TECHNIQUE: L/S SPINE MIN 4 VIEWS COMPARISON: None. FINDINGS: No evidence of acute fracture or dislocation. Grade 1, borderline 2 anterolisthesis of L5 on S1 with probable L5 bilateral pars defects. [id number] disc space narrowing at L5-S1. Mild degenerative changes of the other visualized levels. RAD/L/S Spine Min 4 Views IMPRESSION: Spondylosis. Grade 1, borderline to anterolisthesis of L5 on S1 with probable L5 pars defect s. Reading Location: [place] [id number]
--- NOTE | 2025-03-13 16:42 | RAD_ITS ---
PROCEDURE: THORACIC SPINE 3 VIEWS 03/13/2025 REASON FOR EXAM: RACICULOPATHY TECHNIQUE: THORACIC SPINE 3 VIEWS COMPARISON: None FINDINGS: No acute thoracic spine fracture or subluxations. Alignment is grossly within normal limits. Mild multilevel degenerative changes of the thoracic spine. No focal consolidations. No pleural effusion or pneumothorax. Calcified aortic arch. Cardiac silhouette is within normal limits. RAD/Thoracic Spine 3 Views IMPRESSION: No acute thoracic spine fracture or subluxations. Consider CT/MR if there is c ontinued concern for spinal pathology. Reading Location: [id number]
[2025-03-13 17:11] LABS: Hematocrit 48.2 % (37-47); Hemoglobin 15.1 g/dL (12.0-15.0); Immature Granulocytes Count 0.110 X10^3/uL (0.0-0.0); Mean Corp Hgb Conc 31.3 g/dL (32-36); Mean Corpuscular Volume 90.8 fL (81-99); Mean Platelet Vol. 10.0 fl (6.2-12.0); NRBC Flagged by Analyzer 0 % (0-5); Platelet Count 300 K/mm3 (150-450); RBC Distribution Width CV 14.2 % (11.6-14.6); RBC Distribution Width SD 46.6 fl (35.1-43.9); Red Blood Count 5.31 M/mm3 (4.2-5.4); White Blood Count 8.4 K/mm3 (4.4-11.0)
[2025-03-13 18:00] LABS: AST(SGOT) 16 U/L (<=31); Alanine Aminotransfer ALT/SGPT 11 U/L (<=34); Albumin, Serum 4.0 g/dL (3.4-4.8); Alkaline Phosphatase 151 U/L (35-104); Amylase 60 U/L (28-100); Anion Gap 12 (5-15); BUN 18 mg/dL (4-19); BUN/Creat Ratio 14.3 RATIO (10-20); Calcium,Total 9.4 mg/dL (7.6-11.0); Carbon Dioxide 24.4 mmol/L (21.0-32.0); Chloride 108 mmol/L (98-108); Globulin 2.4 g/dL (2.2-4.2); Glucose 109 mg/dL (70-99); Lipase 24 U/L (13-75); Potassium 4.7 mmol/L (3.3-5.1)
== END | disposition home or self-care (01) ==
PROVIDERS: PCP Family Medicine Geriatric Medicine; Referring Provider Family Medicine Geriatric Medicine; Visit Provider Family Medicine Geriatric Medicine
DX: K57.32 Diverticulitis of large intestine without perforation or abscess without bleeding (principal); M54.14 Radiculopathy, thoracic region; I10 Essential (primary) hypertension; R10.9 Unspecified abdominal pain
CPT/HCPCS: 36415; 72072; 72110; 74177; 80053; 82150; 83690; 85025; 87077; 87086; 87088; 87186; Q9967; A4216

== ENCOUNTER → 2025-03-26 | Outpatient (CLI) | payer MEDICARE, OTHER, SELFPAY ==
--- NOTE | 2025-03-26 13:35 | MRI_ITS ---
PROCEDURE: SPINE THORACIC (ROUTINE) 03/26/2025 REASON FOR EXAM: RADICULOPATHY TECHNIQUE: SPINE THORACIC (ROUTINE) Multiplanar and multisequence images were obtained. COMPARISON: Thoracic spine x-ray, 03/13/2025. FINDINGS: Vertebrae: There are no compression fractures. There is a disc protrusion seen at C5-6 with a apparent central canal stenosis. There is normal bone marrow signal seen in the thoracic vertebral bodies. There is a benign hemangioma in the T11 vertebral body. There are Schmorl's nodes noted on either side of the vertebral endplates T8-9 through T12-L1. There are disc protrusions without central canal stenosis, T8-9 through T12-L1. There are superimposed anterior disc protrusions and marginal osteophytes, T9-10 through T12-L1. Alignment: There is mild dextroscoliosis of the thoracolumbar spine. Spinal Cord: The thoracic portion of the spinal cord is unremarkable. The conus medullaris terminates normally at the T12-L1 level. The paravertebral soft tissues appear unremarkable. MRI/Spine Thoracic (Routine) IMPRESSION: 1. Schmorl's nodes at multiple levels in the mid and lower thoracic spine with the associated disc height loss, consistent with Scheuermann's kyphosis. 2. There is no significant degenerative disc disease or facet arthropathy. Th ere is no central canal stenosis, lateral recess stenosis or foraminal narrowing. 3. There is a large disc protrusion noted at C5-6 with possible central canal stenosis. 4. Other findings as noted. Reading Location: [place] [id number]
--- NOTE | 2025-03-26 13:36 | MRI_ITS ---
PROCEDURE: SPINE LUMBAR (ROUTINE) 03/26/2025 REASON FOR EXAM: RADICULOPATHY TECHNIQUE: SPINE LUMBAR (ROUTINE) COMPARISON: None. FINDINGS: Vertebrae: There is a benign hemangioma in the T11 vertebral body. There is normal bone marrow signal throughout the lumbar vertebral bodies. Alignment: There is maintenance of the normal lumbar lordosis. There is no significant scoliosis. Conus Medullaris: The conus medullaris terminates normally at the T12-L1 level. There are Schmorl's nodes on either side of the T9-10 through the T12-L1 vertebral levels. There is associated disc bulging and anterior disc protrusions with concomitant narrowing of the intervertebral disc height. There is no central canal stenosis, lateral recess stenosis or foraminal narrowing. L1-2: There is mild disc degeneration. There is no disc bulge or disc protrusion. There is no significant facet arthropathy. There is no central canal stenosis, lateral recess stenosis or foraminal narrowing. L2-3: There is mild disc degeneration. There is no disc bulge or disc protrusion. There is bilateral facet arthropathy with ligamentum flavum bulging. There is no central canal stenosis, lateral recess stenosis or foraminal narrowing. L3-4: There is mild disc degeneration. There is no disc bulge or disc protrusion. There is moderate facet arthropathy with ligamentum flavum bulging. There is no central canal stenosis, lateral recess stenosis or foraminal narrowing. L4-5: There is mild disc degeneration. There is no disc bulge or disc protrusion. There is severe facet arthropathy with ligamentum flavum bulging. There is compression of the thecal sac without central canal stenosis, lateral recess stenosis or foraminal narrowing. L5-S1: There is severe disc degeneration with almost complete loss of the intervertebral disc space. There is bilateral spondylolysis with 6 mm of anterolisthesis of L5 on S1. There is epidural lipomatosis. There is resultant central canal stenosis with the AP dimension of the spinal canal measuring 7 mm. There is moderate bilateral facet arthropathy with ligamentum flavum bulging. There is no lateral recess stenosis or foraminal narrowing. Sacrum: The visualized sacrum is unremarkable. There is a cortical cyst in the interpolar region of the left kidney. There is a peripelvic cyst in the lower pole of the left kidney. MRI/Spine Lumbar (Routine) IMPRESSION: 1. Bilateral spondylolysis with grade 1 anterolisthesis of L5 on S1. There is superimposed epidural lipomatosis with resultant central canal stenosis at L5-S1. 2. There is mild degenerative disc disease throughout the remaining lumbar spi ne. There is bilateral facet arthropathy, L2-3 through L5-S1. There is no central canal stenosis L1-2 through L4-5. 3. There is no lateral recess stenosis or foraminal narrowing. 4. Schmorl's nodes and disc narrowing, T9-10 through T12-L1 as described. Reading Location: [place] [id number]
== END | disposition home or self-care (01) ==
LOC: MRI 13:08
PROVIDERS: PCP Family Medicine Geriatric Medicine; Referring Provider Family Medicine Geriatric Medicine; Visit Provider Family Medicine Geriatric Medicine
DX: M47.816 Spondylosis without myelopathy or radiculopathy, lumbar region (principal); M54.14 Radiculopathy, thoracic region
CPT/HCPCS: 72146; 72148

== ENCOUNTER → 2025-04-16 | Outpatient (CLI) | payer MEDICARE, OTHER, SELFPAY ==
[2025-04-16 11:43] LABS: Hematocrit 50.6 % (37-47); Hemoglobin 15.8 g/dL (12.0-15.0); Immature Granulocytes Count 0.200 X10^3/uL (0.0-0.0); Mean Corp Hgb Conc 31.2 g/dL (32-36); Mean Corpuscular Volume 91.8 fL (81-99); Mean Platelet Vol. 10.0 fl (6.2-12.0); NRBC Flagged by Analyzer 0 % (0-5); Platelet Count 337 K/mm3 (150-450); RBC Distribution Width CV 14.6 % (11.6-14.6); RBC Distribution Width SD 49.1 fl (35.1-43.9); Red Blood Count 5.51 M/mm3 (4.2-5.4); White Blood Count 10.0 K/mm3 (4.4-11.0)
[2025-04-16 13:26] LABS: AST(SGOT) 15 U/L (<=31); Alanine Aminotransfer ALT/SGPT 14 U/L (<=34); Albumin, Serum 4.1 g/dL (3.4-4.8); Alkaline Phosphatase 142 U/L (35-104); Anion Gap 15 (5-15); BUN 31 mg/dL (4-19); BUN/Creat Ratio 25.0 RATIO (10-20); Calcium,Total 9.3 mg/dL (7.6-11.0); Carbon Dioxide 19.6 mmol/L (21.0-32.0); Chloride 105 mmol/L (98-108); Globulin 2.7 g/dL (2.2-4.2); Glucose 108 mg/dL (70-99); Potassium 4.4 mmol/L (3.3-5.1); Vitamin D,25 Hydroxy 33.1 ng/mL (30-100)
--- OUTSIDE RECORDS SUMMARY | 2025-04-16 18:42 | XMS RPT_ITS | CCD ---
Author Organization [facility] Care Team Providers Care Breast Surgeon Name Role Phone MD DORINDA DEL REAL Emergency Provider [facility], DOCTOR Family Provider DORINDA DEL REAL Attending Unavailable Jose Luis, Dr. Ramin Villalobos Primary Care Provider Dr. Claritza Ramirez Emergency Provider Dr. Ant Galindo Admit Provider Dr. Ant Glaindo Attending Provider [phone] Dr. Ant Galindo Other Provider Dr. Tom Hastings Attending Provider Dr. Tom Hastings Other Provider Jose Luis CHAVEZ, Dr. Ramin Villalobos Primary Care Provider Jose Luis CHAVEZ, Dr. Ramin Villalobos Attending Provider Jose Luis CHAVEZ, Dr. Ramin Villalobos Referring Provider Julian Lundberg Attending Unavailabl e Jose Luis, Ramin Chi Primary Care Unavailable Jose Luis, Ramin Chi Referring Unavailable Jose Luis, Ramin Chi Primary Care Unavailable Joseph Figueroa Attending Unavailable Jose Luis, Ramin Chi Primary Care Unavailable Jose Luis, Ramin Chi Attending Unavailable Jose Luis, Ramin Chi Primary Care Unavailable Jose Luis, Ramin Chi Attending Unavailable Jose Luis, Ramin Chi Primary Care Unavailable Jose Luis, Ramin Chi Attending Unavailable Jose Luis, Ramin Chi Referring Unavailable Jose Luis, Ramin Chi Referring Unavailable Jose Luis, Ramin Chi Primary Care Unavailable Jose Luis, Ramin Chi Attending Unavailable Jose Luis, Ramin Chi Primary Care Unavailable Jose Luis, Ramin Chi Attending Unavailable Jose Luis, Ramin Chi Primary Care Unavailable Jose Luis, Ramin Chi Attending Unavailable Jose Luis, Ramin Chi Referring Unavailable Joseph Figueroa Attending Unavailable Joseph Figueroa Referring Unavailable Jose Luis, Ramin [facility] Primary Care Unavailable Indira Craft NP Attending Unavailable [facility] Primary Care Unavailable [facility] Referring Unavailable Joseph Figueroa Attending Unavailable [facility] Primary Care Unavailable Allergies Allergy Classification Reported Allergen(s) Allergy Type Date of Onset Reaction(s) Facility (16 sources) Doxycycline; Translations: [doxycycline] Drug Allergy 1 Unknown, Other [facility] (16 sources) Penicillins; Translations: [Penicillins] Allergy to substance 1 Unknown, Rash [facility] (16 sources) Sulfonamides (Antibiotic); Translations: [Sulfa (Sulfonamide Antibiotics)] Allergy to substance 1 Unknown, Rash [facility] (9 sources) Azithromycin Drug Allergy [address] [facility] (9 sources) Erythromycin Drug Allergy [address] [facility] (1 source) Azithromycin Drug Allergy 4 [facility] Repository (1 source) Erythromycin Drug Allergy 4 [facility] Medications Current Medications Medication Drug Class(es) Dates Sig (Normalized) Sig (Original) cholecalciferol 0.01 mg oral capsule (8 sources) Vitamin D Start: 08-10-2022 take 1 capsule by mouth once daily Cholecalciferol (Vitamin D3) (Vitamin D3) 10 mcg (400 unit) Capsule Active 10 ug PO DAILY August 10, 2022 1:00am supplement dexamethasone 6 mg oral tablet (1 source) Corticosteroid Start: 08-25-2021 take 1 tablet by mouth once daily Dexamethasone (Decadron) 6 mg tablet Active 6 MG PO DAILY August 25, 2021 1:00am dextromethorphan hydrobromide 2 mg/ml / guaiFENesin 20 mg/ml oral solution (1 source) Uncompetitive J-nulztx-W-aspartat e Receptor Antagonist, Sigma-1 Agonist Start: 04-14-2021 take 1 mL by mouth every four hours Dextromethorphan-Gu aifenesin (Adult Tussin Cough Congest Dm) 10-100 mg/5 mL liquid Active 10 ML PO Q4H 500 April 14, 2021 12:00am erythromycin 0.005 mg/mg ophthalmic ointment (2 sources) Macrolide, Macrolide Antimicrobial Start: 05-09-2024 Erythromycin 5 mg/gram (0.5 %) ointment Active OPHTHALMIC May 09, 2024 12:00am levoFLOXacin 750 mg oral tablet (1 source) Quinolone Antimicrobial Start: 08-25-2021 take 750 mg by mouth once daily Levofloxacin Active 750 MG PO DAILY August 25, 2021 1:00am levothyroxine sodium 0.025 mg oral tablet (2 sources) l-Thyroxine Start: 05-09-2024 take 1 tablet by mouth once daily Levothyroxine 25 mcg tablet Active 25 ug PO daily May 09, 2024 12:00am 24 hr metoprolol succinate 50 mg extended release oral tablet (5 sources) beta-Adrenergic Rebekah Start: 05-29-2024 End: 04-01-2025 take 1 tablet by mouth once daily Metoprolol Succinate 50 mg tablet extended release 24 hr Active 50 mg PO daily 11 08April 01, 2025 7:56am This is a dose increase Start: 05-09-2024 End: 05-29-2024 take 1 tablet by mouth once daily Metoprolol Succinate 25 mg tablet extended release 24 hr Discontinued 25 mg PO DAILY 11 08May 09, 2024 12:00am May 29, 2024 3:08pm Multivitamin preparation (7 sources) Start: 09-19-2021 Multivitamin A ctive 1 EACH PO DAILY September 19, 2021 11:06pm Start: 08-06-2020 take 1 capsule by [facility] once daily multivitamin Active 1 CAP PO DAILY August 06, 2020 1:00am Sr-Lp-Qwai-Uiitu-Jwx-Rfl-Hc1 24 (Airborne (Ascorbate Sodium)) 333-1.7 mg tablet,chewable (9 sources) Start: 08-06-2020 Xn-Cg-Qysj-Keppo-Cas-Ozb-Hc1 24 (Airborne (Ascorbate Sodium)) 333-1.7 mg tablet,chewable Active 1 {tbl} PO DAILY August 06, 2020 1:00am supplement Start: 08-06-2020 take 1 tablet by jeniffer once daily Xv-Ke-Dxoy-Zkfyu-Why-Riw-Hc124 (Airborne (Ascorbate Sodium)) 333-1.7 mg tablet,chewable Active 1 TABLET PO DAILY August 06, 2020 12:00am Start: 08-06-2020 take 1 tablet by jeniffer once daily Vv-Si-Oefw-Ikqii-Uiy-Lte-Hc124 (Airborne (Ascorbate Sodium)) 333-1.7 mg tablet,chewable Active 1 TABLET PO DAILY August 06, 2020 1:00am ondansetron 4 mg disintegrating oral tablet (6 sources) Serotonin-3 Receptor Antagonist Start: 09-20-2021 take 1 tablet by mouth every four hours Ondansetron Odt (Zofran Odt) 4 MG Tab.Rapdis Active 4 MG PO Q4H September 20, 2021 1:19am zicam (9 sources) Start: 08-06-2020 zicam Active 1 {tbl} PO EVERY 4 HOURS NEEDED as needed for Cold Symptoms 0 August 06, 2020 1:00am Start: 08-06-2020 take 1 tablet by jeniffer th every four hours as needed zicam Active 1 TABLET PO EVERY 4 HOURS NEEDED August 06, 2020 1:00am Start: 08-06-2020 take 1 tablet by jeniffer every four hours as needed zicam Active 1 TABLET PO EVERY 4 HOURS NEEDED August 06, 2020 12:00am Start: 08-06-2020 zicam Active P O August 06, 2020 12:00am Start: 08-06-2020 zicam Active P O August 06, 2020 1:00am Completed/Discontinued Medications Medication Drug Class(es) Dates Sig (Normalized) Sig (Original) benzonatate 100 mg oral capsule (7 sources) Non-narcotic Antitussive Start: 08-12-2022 End: 05-09-2024 take 2 capsules by mouth three times daily as needed for cough Benzonatate 100 mg Capsule Discontinued 200 mg PO THREE TIMES A DAY as needed for cough 30 0 August 12, 2022 1:00am May 09, 2024 11:11am Start: 08-12-2022 take 200 mg by mouth three times daily Benzonatate Active 200 MG PO THREE TIMES A DAY August 12, 2022 12:00am clindamycin 300 mg oral capsule (18 sources) Lincosamide Antibacterial Start: 04-14-2021 End: 04-21-2021 take 1 capsule by mouth twice daily Clindamycin Hcl 300 mg capsule Discontinued 300 mg PO TWICE A DAY 14 7 0 April 14, 2021 12:00am April 20, 2021 12:00am April 21, 2021 12:01am Start: 08-06-2020 End: 08-25-2021 take 1 capsule by mouth three times daily Clindamycin Hcl 300 mg capsule Discontinued 300 mg PO THREE TIMES A DAY 30 0 August 06, 2020 1:00am August 25, 2021 9:12am 12 hr guaiFENesin 1200 mg extended release oral tablet (7 sources) Start: 08-12-2022 End: 05-09-2024 take 1 tablet by mouth twice daily, then take 1 tablet by mouth every twelve hours Guaifenesin (Mucus Relief Er) 1,200 mg Tablet Extended Release 12hr Discontinued 1200 mg PO TWICE A DAY 10 August 12, 2022 1:00am May 09, 2024 11:14am oseltamivir 30 mg oral capsule (7 sources) Neuraminidase Inhibitor Start: 08-12-2022 End: 04-03-2024 take 1 capsule by mouth twice daily Oseltamivir 30 mg Capsule Discontinued 30 mg PO TWICE A DAY 7 August 12, 2022 1:00am April 03, 2024 10:22am Problems Active Problems Problem Classification Problem Date Documented Date Episodic/Chronic Asthma (2 sources) Asthma; Translations: [Unspecified asthma, uncomplicated] 04-03-2024 Chronic Chronic ulcer of skin (9 sources) Ulcer; Translations: [Non-pressure chronic ulcer of skin of other sites with fat layer exposed] 05-22-2021 Chronic Disorders of lipid metabolism (3 sources) Hyperlipidemia; Translations: [Hyperlipidemia, unspecified] Onset: 05-09-2024 05-09-2024 Chronic Diverticulosis and diverticulitis (1 source) Diverticulitis of large intestine without perforation or abscess without bleeding; Translations: [Diverticulitis of large intestine without perforation or abscess without bleeding] Onset: 03-20-2025 Chronic Essential hypertension (3 sources) Hypertensive disorder; Translations: [Essential (primary) hypertension] Onset: 11-02-2024 05-09-2024 Chronic Immunizations and screening for infectious disease (4 sources) Contact with and (suspected) exposure to other viral communicable diseases; Translations: [Contact with or suspected exposure to other viral communicable disease] 06-03-2023 Episodic Influenza (11 sources) Influenza due to Influenza A virus; Translations: [Influenza due to other identified influenza virus with other respiratory manifestations] Episodic Malaise and fatigue (20 sources) Decline in functional status; Translations: [Other malaise] Episodic Menopausal disorders (2 sources) Atrophic vaginitis; Translations: [Postmenopausal atrophic vaginitis] 04-03-2024 Chronic Other lower respiratory disease (2 sources) Dyspnea; Translations: [Dyspnea, unspecified] 05-09-2024 Episodic Other skin disorders (2 sources) Disorder of sweat gland; Translations: [Eccrine sweat disorder, unspecified] 05-09-2024 Episodic Other upper respiratory infections (9 sources) Acute maxillary sinusitis; Translations: [Acute maxillary sinusitis, unspecified] 08-06-2020 Episodic Spondylosis; intervertebral disc disorders; other back problems (1 source) Spondylosis without myelopathy or radiculopathy, lumbar region; Translations: [Spondylosis without myelopathy or radiculopathy, lumbar region] Onset: 04-01-2025 Chronic Thyroid disorders (3 sources) Hypothyroidism; Translations: [Hypothyroidism, unspecified] Onset: 10-17-2024 05-09-2024 Chronic Unclassified (9 sources) Abrasion of right upper arm, subsequent encounter 08-10-2022 Viral infection (9 sources) Disease caused by 2019-nCoV; Translations: [COVID-19] 08-22-2021 Episodic Past or Other Problems Problem Classification Problem Date Documented Da te Episodic/Chronic Other lower respiratory disease (1 source) Dyspnea, unspecified; Translations: [Dyspnea, unspecified] Onset: 06-18-2024 Episodic Residual codes; unclassified (1 source) Chills (without fever); Translations: [Chills (without fever)] Onset: 06-05-2024 Episodic Results Test Name Value Interpretation Reference Range Facility Magnetic resonance imaging r eportOrdered By: Cuco Reeves on 03-29-[address] [facility] Imaging Services [address] [place] [address] Spine Thoracic (Routine) MR#: [id number] Acct: [id number] Name: JUAN FRANCISCO TANNER Rep #: [id number] : 1950 F 74 From: Prabhu Reeves MD PCP: Dr. Ramin Amaya MD Status: NICOLE SHANNON Study:Spine Thoracic (Routine) Date of Exam: 03/26/25 Exam# [id number] Ordering Dr: Ramin Amaya MD PROCEDURE: SPINE THORACIC (ROUTINE) 03/26/2025 REASON FOR EXAM: RADICULOPATHY TECHNIQUE: SPINE THORACIC (ROUTINE) Multiplanar and multisequence images were obtained. COMPARISON: Thoracic spine x-ray, 03/13/2025. FINDINGS: Vertebrae: There are no compression fractures. There is a disc protrusion seen at C5-6 with a apparent central canal stenosis. There is normal bone marrow signal seen in the thoracic vertebral bodies. Thereis a benign hemangioma in the T11 vertebral body. There are Schmorl's nodes noted on either side of the vertebral endplatesT8-9 through T12-L1. There are disc protrusions without central canal stenosis, T8-9 through T12-L1. There are superimposed anterior disc protrusions and marginal osteophytes, T9-10 through T12-L1. Alignment: There is mild dextroscoliosis of the thoracolumbar spine. Spinal Cord: The thoracic portion of the spinal cord is unremarkable. The conusmedullaris terminates normally at the T12-L1 level. The paravertebral soft tissues appear unremarkable. MRI/Spine Thoracic (Routine) IMPRESSION: 1. Schmorl's nodes at multiple levels in the mid and lower thoracic spine with the associated disc height loss, consistent with Scheuermann's kyphosis. 2. There is no significant degenerative disc disease or facet arthropathy. There is no central canal stenosis, lateral recess stenosis or foraminal narrowing. 3. There is a large disc protrusion noted at C5-6 with possible central canal stenosis. 4. Other findings as noted. Reading Location: [place] [address] CC: Dr. Ramin Amaya MD ~ Parking Enforcement Officer: Signed [facility] Work Phone: Study report [facility] Imaging Services [address] [place], [place] [address] Spine Lumbar (Routine) MR#: [id number] Acct: [id number] Name: JUAN FRANCISCO TANNER Rep #: [id number] : 1950 F 74 From: Prabhu Reeves MD PCP: Dr. Ramin Amaya MD Status: NICOLE SHANNON Study:Spine Lumbar (Routine) Date of Exam: 03/26/25 Exam# [id number] Ordering Dr: Ramin Amaya MD PROCEDURE: SPINE LUMBAR (ROUTINE) 03/26/2025 REASON FOR EXAM: RADICULOPATHY TECHNIQUE: SPINE LUMBAR (ROUTINE) COMPARISON: None. FINDINGS: Vertebrae: There is a benign hemangioma in the T11 vertebral body. There is normal bone marrow signal throughout the lumbar vertebral bodies. Alignment: There is maintenance of the normal lumbar lordosis. There is no significant scoliosis. Conus Medullaris: The conus medullaris terminates normally at the T12-L1 level. There are Schmorl's nodes on either side of the T9-10 through the T12-L1 vertebral levels. There is associated disc bulging and anterior disc protrusions with concomitant narrowing of the intervertebral disc height. There is no central canal stenosis, lateral recess stenosis or foraminal narrowing. L1-2: There is mild disc degeneration. There is no disc bulge or disc protrusion. There is no significant facet arthropathy. There is no central canal stenosis, lateral recess stenosis or foraminal narrowing. L2-3: There is mild disc degeneration. There is no disc bulge or disc protrusion. There is bilateral facet arthropathy with ligamentum flavum bulging. There is no central canal stenosis, lateral recess stenosis or foraminal narrowing. L3-4: There is mild disc degeneration. There is no disc bulge or disc protrusion. There is moderate facet arthropathy with ligamentum flavum bulging. There is no central canal stenosis, lateral recess stenosis or foraminal narrowing. L4-5: There is mild disc degeneration. There is no disc bulge or disc protrusion. There is severe facet arthropathy with ligamentum flavum bulging. There is compression of the thecal sac without central canal stenosis, lateral recess stenosis or foraminal narrowing. L5-S1: There is severe disc degeneration with almost complete loss of the intervertebral disc space. There is bilateral spondylolysis with 6 mm of anterolisthesis of L5 on S1. There is epidural lipomatosis. There is resultant central canal stenosis with the AP dimension of the spinal canal measuring 7 mm. There is moderate bilateral facet arthropathy with ligamentum flavum bulging. There is no lateral recess stenosis or foraminal narrowing. Sacrum: The visualized sacrum is unremarkable. There is a cortical cyst in the interpolar region of the left kidney. There is a peripelvic cyst in the lower pole of the left kidney. MRI/Spine Lumbar (Routine) IMPRESSION: 1. Bilateral spondylolysis with grade 1 anterolisthesis of L5 on S1. There is superimposed epidural lipomatosis with resultant central canal stenosis at L5-S1. 2. There is mild degenerative disc disease throughout the remaining lumbar spine. There is bilateral facet arthropathy, L2-3 through L5-S1. There is no central canal stenosis L1-2 through L4-5. 3. There is no lateral recess stenosis or foraminal narrowing. 4. Schmorl's nodes and disc narrowing, T9-10 through T12-L1 as described. Reading Location: [place] [address] CC: Dr. Ramin Amaya MD ~ Parking Enforcement Officer: Signed [facility] Work Phone: Spine Lumbar (Routine)on Spine Lumbar (Routine) [facility] Imaging Services [address] [place] [id number] Spine Lumbar (Routine) MR#: [id number] Acct: [id number] Name: JUAN FRANCISCO TANNER Rep #: [id number] : 1950 F 74 From: Cuco Reeves MD PCP: Dr. Ramin Amaya MD Status: REG CLI Study: Spine Lumbar (Routine) Date of Exam: 03/26/25 Exam# [id number] Ordering Dr: Ramin Amaya MD PROCEDURE: SPINE LUMBAR (ROUTINE) 03/26/2025 REASON FOR EXAM: RADICULOPATHY TECHNIQUE: SPINE LUMBAR (ROUTINE) COMPARISON: None. FINDINGS: Vertebrae: There is a benign hemangioma in the T11 vertebral body. There is normal bone marrow signal throughout the lumbar vertebral bodies. Alignment: There is maintenance of the normal lumbar lordosis. There is no significant scoliosis. Conus Medullaris: The conus medullaris terminates normally at the T12-L1 level. There are Schmorl's nodes on either side of the T9-10 through the T12-L1 vertebral levels. There is associated disc bulging and anterior disc protrusions with concomitant narrowing of the intervertebral disc height. There is no central canal stenosis, lateral recess stenosis or foraminal narrowing. L1-2: There is mild disc degeneration. There is no disc bulge or disc protrusion. There is no significant facet arthropathy. There is no central canal stenosis, lateral recess stenosis or foraminal narrowing. L2-3: There is mild disc degeneration. There is no disc bulge or disc protrusion. There is bilateral facet arthropathy with ligamentum flavum bulging. There is no central canal stenosis, lateral recess stenosis or foraminal narrowing. L3-4: There is mild disc degeneration. There is no disc bulge or disc protrusion. There is moderate facet arthropathy with ligamentum flavum bulging. There is no central canal stenosis, lateral recess stenosis or foraminal narrowing. L4-5: There is mild disc degeneration. There is no disc bulge or disc protrusion. There is severe facet arthropathy with ligamentum flavum bulging. There is compression of the thecal sac without central canal stenosis, lateral recess stenosis or foraminal narrowing. L5-S1: There is severe disc degeneration with almost complete loss of the intervertebral disc space. There is bilateral spondylolysis with 6 mm of anterolisthesis of L5 on S1. There is epidural lipomatosis. There is resultant central canal stenosis with the AP dimension of the spinal canal measuring 7 mm. There is moderate bilateral facet arthropathy with ligamentum flavum bulging. There is no lateral recess stenosis or foraminal narrowing. Sacrum: The visualized sacrum is unremarkable. There is a cortical cyst in the interpolar region of the left kidney. There is a peripelvic cyst in the lower pole of the left kidney. MRI/Spine Lumbar (Routine) IMPRESSION: 1. Bilateral spondylolysis with grade 1 anterolisthesis of L5 on S1. There is superimposed epidural lipomatosis with resultant central canal stenosis at L5-S1. 2. There is mild degenerative disc disease throughout the remaining lumbar spine. There is bilateral facet arthropathy, L2-3 through L5-S1. There is no central canal stenosis L1-2 through L4-5. 3. There is no lateral recess stenosis or foraminal narrowing. 4. Schmorl's nodes and disc narrowing, T9-10 through T12-L1 as described. Reading Location: [place] [address] CC: Dr. Ramin Amaya MD Parking Enforcement Officer: Signed Normal [facility] Spine Thoracic (Routine)on 0 03-26-2025 Spine Thoracic (Routine) [facility] Imaging Services [address] [place], [place] [address] Spine Thoracic (Routine) MR#: [id number] Acct: [id number] Name: JUAN FRANCISCO TANNER Rep #: [id number] : 1950 F 74 From: Cuco Reeves MD PCP: Dr. Ramin Amaya MD Status: REG CLI Study: Spine Thoracic (Routine) Date of Exam: Exam# [id number] Ordering Dr: Ramin Amaya MD PROCEDURE: SPINE THORACIC (ROUTINE) 03/26/2025 REASON FOR EXAM: RADICULOPATHY TECHNIQUE: SPINE THORACIC (ROUTINE) Multiplanar and multisequence images were obtained. COMPARISON: Thoracic spine x-ray, 03/13/2025. FINDINGS: Vertebrae: There are no compression fractures. There is a disc protrusion seen at C5-6 with a apparent central canal stenosis. There is normal bone marrow signal seen in the thoracic vertebral bodies. There is a benign hemangioma in the T11 vertebral body. There are Schmorl's nodes noted on either side of the vertebral endplates T8-9 through T12- L1. There are disc protrusions without central canal stenosis, T8-9 through T12-L1. There are superimposed anterior disc protrusions and marginal osteophytes, T9-10 through T12-L1. Alignment: There is mild dextroscoliosis of the thoracolumbar spine. Spinal Cord: The thoracic portion of the spinal cord is unremarkable. The conus medullaris terminates normally at the T12-L1 level. The paravertebral soft tissues appear unremarkable. MRI/Spine Thoracic (Routine) IMPRESSION: 1. Schmorl's nodes at multiple levels in the mid and lower thoracic spine with the associated disc height loss, consistent with Scheuermann's kyphosis. 2. There is no significant degenerative disc disease or facet arthropathy. There is no central canal stenosis, lateral recess stenosis or foraminal narrowing. 3. There is a large disc protrusion noted at C5-6 with possible central canal stenosis. 4. Other findings as noted. Reading Location: [place] [address] CC: Dr. Ramin Amaya MD Parking Enforcement Officer: Signed Normal [facility] Urine Cultureon 03-15-2025 [facility] Presumptive E. coli [place] Count 11,000-25,000 Mixed Gram Positive Organisms Mixed Gram Positive Organisms MIXC Mixed contaminants. Submit a new specimen if indicated. Presumptive E. coli: REACTION Ampicillin Islt RONY 16 Ampicillin+Sulbac Islt RONY 4 S Cefepime Islt RONY <=0.12 cefTRIAXone Islt RONY <=0.25 S Ciprofloxacin Islt RONY 0.5 I B-Lactamase Extended Susc Islt NEG Gentamicin Islt RONY <=1 S levoFLOXacin Islt RONY 1 I Meropenem Islt RONY <=0.25 S Nitrofurantoin Islt RONY <=16 S Pip+Tazo Islt RONY <=4 S TMP SMX Islt RONY >=[address] [facility] Comment on above: Performed By: #### M [id number] #### [facility] [address] [facility]. [place], [place], [address] Abdomen/Pelvis WITH Contrast on 03-13-2025 Abdomen/Pelvis WITH Contrast [facility] Imaging Services [address] [place] [address] Abdomen/Pelvis WITH Contrast MR#: [id number] Acct: [id number] Name: JUAN FRANCISCO TANNER Rep #: [id number] : 1950 F 74 From: Dale Ortiz MD PCP: Dr. Ramin Amaya MD Status: REG CLI Study: Abdomen/Pelvis WITH Contrast Date of Exam: 11/06 Exam# [id number] Ordering Dr: Ramin Amaya MD PROCEDURE: ABDOMEN/PELVIS WITH CONTRAST 03/13/2025 REASON FOR EXAM: DIVERTICULITIS OF LG INTESTINE W/O PERFORATION TECHNIQUE: ABDOMEN/PELVIS WITH IV and oral CONTRAST Coronal and Sagittal reconstruction series were provided. CONTRAST: Isovue-300 VOLUME: 97 mL One or more dose reduction techniques were used (e.g., Automated exposure control, adjustment of the mA and/or kV according to patient size, use of iterative reconstruction technique. RADIATION DOSE SUMMARY: CTDlvol: 23.3 mGy DLP: 1113 mGycm COMPARISON: CT abdomen and pelvis on 07/04/2018 FINDINGS: Lung bases: Unremarkable Liver: Mild intrahepatic biliary ductal dilatation, unchanged. Subcentimeter hypodensity in the right hepatic lobe, too small to characterize and unchanged. Gallbladder: Surgically absent. Spleen: Normal size. Pancreas: Normal size without evidence of mass surrounding inflammation or ductal dilation. Adrenals: Unremarkable Kidneys: No stone or hydronephrosis. Left renal pelvic cysts Bladder: Unremarkable Reproductive Organs: Prior hysterectomy. Adnexal regions are unremarkable. Bowel: No obstruction or inflammation. There is oral contrast in the small bowel and cecum. Colonic diverticulosis without wall thickening or pericolonic inflammatory stranding to suggest acute diverticulitis. Prominent colonic stool burden. Surgically absent appendix. Lymph nodes: Unremarkable. Vasculature: Mild diffuse atherosclerotic calcifications are noted. Bones: Degenerative changes of the spine. L5 pars defects with grade 1 anterolisthesis of L5 on S1. Soft tissues: There are calcifications and foci of subcutaneous emphysema throughout the gluteal soft tissues, unchanged and likely related to subcutaneous injections. CT/Abdomen/Pelvis WITH Contrast IMPRESSION: 1. No acute intra-abdominal abnormality. There is colonic diverticulosis without current evidence of acute diverticulitis. 2. Prominent colonic stool burden, correlate for clinical symptoms of constipation. Reading Location: [facility] CC: Dr. Ramin Amaya MD Parking Enforcement Officer: Signed Normal [facility] Absolute lymphocyte countOrd ered By: Ramin Amaya on 03-13-2025 Lymphocytes Auto (Unsp spec) [#/Vol] 3.85 10*3/uL 0.83-4.51 [facility] Absolute neutrophil countOrd ered By: Ramin Amaya on 03-13-2025 Neutrophils (Bld) [#/Vol] 3.5 10*3/uL 2.0-7.7 [facility] Amylaseon 03-13-2025 NANCY 60 U/L Normal 28-100 [facility] Comment on above: Performed By: #### M 100.678 #### [facility] [address] [place], [address] Anion gap in Serum or Plasma Ordered By: Ramin Amaya on 03-13-2025 Anion gap [Moles/Vol] 12 mmol/L 5-15 [facility] Automated lymphocyte count a s percentage of total leukocytesOrdered By: Ramin Amaya on 03-13-2025 Lymphocytes/100 WBC Auto (Unsp spec) 46.1 % High 19-41 [facility] BUN/creatinine ratioOrdered By: Ramin Amaya on 03-13-2025 Urea nitrogen/Creatinine [Mass ratio] 14.3 mg/mg 10-20 [facility] Basophil percentageOrdered B y: Ramin Amaya on 03-13-2025 Basophils/100 WBC (Bld) 0.5 % 0-1 [facility] Bilirubin, totalOrdered By: Ramin Amaya on 03-13-2025 Bilirubin [Mass/Vol] 0.32 mg/dL Normal 0.00-1.30 [facility] Comment on above: Performed By: #### L 501.2400, L100.0100, L501.2450, L500.4050 #### [facility] [address] [place], [address] CBC W/Diff, Automatedon Absolute Lymph 3.85 X10 3/uL Normal 0.83-4.51 [facility] Comment on above: Performed By: #### L 501.2400, L100.0100, L501.2450, L500.4050 #### [facility] [address] [place], [address] Absolute Neut 3.5 X10 3/uL Normal 2.0-7.7 [facility] Comment on above: Performed By: #### L 501.2400, L100.0100, L501.2450, L500.4050 #### [facility] [address] [place], [address] Basophils/100 WBC (Bld) 0.5 % Normal 0-1 [facility] Comment on above: Performed By: #### L 501.2400, L100.0100, L501.2450, L500.4050 #### [facility] [address] [place], [address] Eosinophils/100 WBC (Bld) 3.1 % Normal 0-5 [facility] Comment on above: Performed By: #### L 501.2400, L100.0100, L501.2450, L500.4050 #### [facility] [address] [place], [address] Erythrocyte distribution width (RBC) [Ratio] 14.2 % Normal 11.6-14.6 [facility] Comment on above: Performed By: #### L 501.2400, L100.0100, L501.2450, L500.4050 #### [facility] [address] [place], [address] Hematocrit (Bld) [Volume fraction] 48.2 % High 37-47 [facility] Comment on above: Performed By: #### L 501.2400, L100.0100, L501.2450, L500.4050 #### [facility] [address] [place], [address] Hemoglobin (Bld) [Mass/Vol] 15.1 g/dL High 12.0-15.0 [facility] Comment on above: Performed By: #### L 501.2400, L100.0100, L501.2450, L500.4050 #### [facility] [address] [place], [address] IG% 1.300 High 0.0-0.9 [facility] Comment on above: Result Comment: IG% - Immature Granulocytes (promyelocytes, myelocytes and metamyelocytes) > 1% indicates that a LEFT SHIFT is Present. Performed By: #### L 501.2400, L100.0100, L501.2450, L500.4050 #### [facility] [address] [place], [address] Lymphocytes/100 WBC (Bld) 46.1 % High 19-41 [facility] Comment on above: Performed By: #### L 501.2400, L100.0100, L501.2450, L500.4050 #### [facility] [address] [place], [address] MCH (RBC) [Entitic mass] 28.4 pg Normal 27.0-32.0 [facility] Comment on above: Performed By: #### L 501.2400, L100.0100, L501.2450, L500.4050 #### [facility] [address] [place], [address] MCHC (RBC) [Mass/Vol] 31.3 g/dL Low 32-36 [facility] Comment on above: Performed By: #### L 501.2400, L100.0100, L501.2450, L500.4050 #### [facility] [address] [place], [address] MCV (RBC) [Entitic vol] 90.8 fL Normal 81-99 [facility] Comment on above: Performed By: #### L 501.2400, L100.0100, L501.2450, L500.4050 #### [facility] [address] [place], [address] Monocytes/100 WBC (Bld) 6.7 % Normal 0-10 [facility] Comment on above: Performed By: #### L 501.2400, L100.0100, L501.2450, L500.4050 #### [facility] [address] [place], [address] Neutrophils/100 WBC (Bld) 42.3 % Low 47-70 [facility] Comment on above: Performed By: #### L 501.2400, L100.0100, L501.2450, L500.4050 #### [facility] [address] [place], [address] Nucleated RBC (Bld) [#/Vol] 0 10*3/uL Normal 0-5 [facility] Comment on above: Performed By: #### L 501.2400, L100.0100, L501.2450, L500.4050 #### [facility] [address] [place], [address] Platelet mean volume (Bld) [Entitic vol] 10.0 fL Normal 6.2-12.0 [facility] Comment on above: Performed By: #### L 501.2400, L100.0100, L501.2450, L500.4050 #### [facility] [address] [place], [address] Platelets (Bld) [#/Vol] 300 10*3/uL Normal 150-450 [facility] Comment on above: Performed By: #### L 501.2400, L100.0100, L501.2450, L500.4050 #### [facility] [address] [place], [address] RBC (Bld) [#/Vol] 5.31 10*6/uL Normal 4.2-5.4 [facility] Comment on above: Performed By: #### L 501.2400, L100.0100, L501.2450, L500.4050 #### [facility] [address] [place], [address] RDW SD 46.6 fl High 35.1-43.9 [facility] Comment on above: Performed By: #### L 501.2400, L100.0100, L501.2450, L500.4050 #### [facility] [address] [place], [address] WBC (Bld) [#/Vol] 8.4 10*3/uL Normal 4.4-11.0 [facility] Comment on above: Performed By: #### L 501.2400, L100.0100, L501.2450, L500.4050 #### [facility] [address] [place], [address] Carbon dioxide, total [Moles /volume] in Central venous bloodOrdered By: Ramin Amaya on 03-13-2025 CO2 [Moles/Vol] 24.4 mmol/L Normal 21.0-32.0 [facility] Comment on above: Performed By: #### L 501.2400, L100.0100, L501.2450, L500.4050 #### [facility] [address] [place], [address] Chloride assayOrdered By: Teddy Amaya on 03-13-2025 Chloride [Moles/Vol] 108 mmol/L Normal 98-108 [facility] Comment on above: Performed By: #### L 501.2400, L100.0100, L501.2450, L500.4050 #### [facility] [address] [place], [address] Comprehensive Metabolic Prof ilon 03-13-2025 ALK PHOS 151 U/L High 35-104 [facility] Comment on above: Performed By: #### L 501.2400, L100.0100, L501.2450, L500.4050 #### [facility] [address] [place], [address] BUN/CRE 14.3 RATIO Normal 10-20 [facility] Comment on above: Performed By: #### L 501.2400, L100.0100, L501.2450, L500.4050 #### [facility] [address] [place], [address] GAP 12 Normal 5-15 [facility] Comment on above: Performed By: #### L 501.2400, L100.0100, L501.2450, L500.4050 #### [facility] [address] [place], [address] Potassium [Moles/Vol] 4.7 mmol/L Normal 3.3-5.1 [facility] Comment on above: Performed By: #### L 501.2400, L100.0100, L501.2450, L500.4050 #### [facility] [address] [place], [address] T PROT 6.4 g/dL Normal 5.9-8.4 [facility] Comment on above: Performed By: #### L 501.2400, L100.0100, L501.2450, L500.4050 #### [facility] [address] [place], [address] Comprehensive Metabolic Prof ilOrdered By: Ramin Amaya on 03-13-2025 AST [Catalytic activity/Vol] 16 U/L Normal <=31 [facility] Comment on above: Performed By: #### L 501.2400, L100.0100, L501.2450, L500.4050 #### [facility] [address] [place], [address] Eosinophil percentageOrdered By: Ramin Amaya on 03-13-2025 Eosinophils/100 WBC (Bld) 3.1 % 0-5 [facility] Erythrocyte distribution wid th ratioOrdered By: Ramin Amaya on 03-13-2025 Erythrocyte distribution width (RBC) [Ratio] 14.2 % 11.6-14.6 [facility] Erythrocyte distribution wid th standard deviationOrdered By: Ramin Amaya on 03-13-2025 Erythrocyte distribution width (RBC) [Ratio] 46.6 fl High 35.1-43.9 [facility] Glomerular filtration rate ( GFR) estimation/1.73 sq m using serum, plasma, or whole bOrdered By: Ramin Amaya on 03-13-2025 GFR/1.73 sq M.predicted among non-blacks MDRD (S/P/Bld) [Vol rate/Area] 45 mL/min/{1.73_m2} Low >60 [facility] Comment on above: mL/min/1.73m2 CKD-EP I Creatinine Equation (2020) Result Comment: mL/m in/1.73m2 CKD-EPI Creatinine Equation (2020) Performed By: #### L 501.2400, L100.0100, L501.2450, L500.4050 #### [facility] [address] [place], [place], [address] Hematocrit Auto (Bld) [Volum e fraction]Ordered By: Ramin Amaya on 03-13-2025 Hematocrit (Bld) [Volume fraction] 48.2 % High 37-47 [facility] Hemoglobin measurementOrdere d By: Ramin Amaya on 03-13-2025 Hemoglobin (Bld) [Mass/Vol] 15.1 g/dL High 12.0-15.0 [facility] Immature granulocytes/100 WB C Auto (Bld)Ordered By: Ramin Amaya on 03-13-2025 Immature granulocytes/100 WBC (Bld) 1.300 % High 0.0-0.9 [facility] Comment on above: IG% - Immature Granu locytes (promyelocytes, myelocytes and metamyelocytes) > 1% indicates that a LEFT SHIFT is Present. L/S Spine Min 4 Viewson 07 L/S Spine Min [address] [facility] Imaging Services [address] [place], [place] [id number] (212) L/S Spine Min 4 Views MR#: [id number] Acct: [id number] Name: JUAN FRANCISCO TANNER Rep #: [id number] : 1950 F 74 From: Jered Elaine MD PCP: Dr. Ramin Amaya MD Status: REG CLI Study: L/S Spine Min 4 Views Date of Exam: 03/13/25 Exam# [id number] Ordering Dr: Ramin Amaya MD PROCEDURE: L/S SPINE MIN 4 VIEWS 03/13/2025 REASON FOR EXAM: RADICULOPATHY TECHNIQUE: L/S SPINE MIN 4 VIEWS COMPARISON: None. FINDINGS: No evidence of acute fracture or dislocation. Grade 1, borderline 2 anterolisthesis of L5 on S1 with probable L5 bilateral pars defects. Kylkhdyh-ue-ezcstu disc space narrowing at L5-S1. Mild degenerative changes of the other visualized levels. RAD/L/S Spine Min 4 Views IMPRESSION: Spondylosis. Grade 1, borderline to anterolisthesis of L5 on S1 with probable L5 pars defects. Reading Location: [place] [address] CC: Dr. Ramin Amaya MD Parking Enforcement Officer: Signed Normal [facility] Lipase measurementOrdered By : Ramin Amaya on 03-13-2025 Lipase [Catalytic activity/Vol] 24 U/L Normal 13-75 [facility] Comment on above: Please note:LIPASE r evised reference range effective 22. New Lipase methodology. Expected to produce lower values than the previous assay method. NEW Reference Range: 13 - 75 U/L Result Comment: Manuel casey note: LIPASE revised reference range effective 22. New Lipase methodology. Expected to produce lower values than the previous assay method. NEW Reference Range: 13 - 75 U/L Performed By: #### M 100.678 #### [facility] [address] [place] [address], [address] MCV (mean corpuscular volume ) determinationOrdered By: Ramin Amaya on 03-13-2025 MCV (RBC) [Entitic vol] 90.8 fL 81-99 [facility] Mean corpuscular hemoglobin (MCH) determinationOrdered By: Ramin Amaya on 03-13-2025 MCH (RBC) [Entitic mass] 28.4 pg 27.0-32.0 [facility] Mean corpuscular hemoglobin concentration (MCHC) determinationOrdered By: Ramin Amaya on 03-13-2025 MCHC (RBC) [Mass/Vol] 31.3 g/dL Low 32-36 [facility] Mean platelet volume determi nationOrdered By: Ramin Amaya on 03-13-2025 Platelet mean volume (Bld) [Entitic vol] 10.0 fL 6.2-12.0 [facility] Monocyte percentageOrdered B y: Ramin Amaya on 03-13-2025 Monocytes/100 WBC (Bld) 6.7 % 0-10 [facility] Neutrophil percentageOrdered By: Ramin Amaya on 03-13-2025 Neutrophils/100 WBC (Bld) 42.3 % Low 47-70 [facility] Nucleated red blood cell per centageOrdered By: Ramin Amaya on 03-13-2025 Nucleated RBC/100 WBC (Bld) [Ratio] 0 % 0-5 [facility] Platelet countOrdered By: Teddy Amaya on 03-13-2025 Platelets (Bld) [#/Vol] 300 10*3/uL 150-450 [facility] Potassium measurement (mass/ volume)Ordered By: Ramin Amaya on 03-13-2025 Potassium (Unsp spec) [Mass/Vol] 4.7 mmol/L 3.3-5.1 [facility] RBC Auto (Bld) [#/Vol]Ordere d By: Ramin Amaya on 03-13-2025 RBC (Bld) [#/Vol] 5.31 10*6/uL 4.2-5.4 [facility] Serum creatinine measurement (mass/volume)Ordered By: Ramin Amaya on 03-13-2025 Creatinine [Mass/Vol] 1.26 mg/dL High 0.70-1.20 [facility] Comment on above: Performed By: #### L 501.2400, L100.0100, L501.2450, L500.4050 #### [facility] [address] [place], [address] Serum globulin measurementOr dered By: Ramin Amaya on 03-13-2025 Globulin (S) [Mass/Vol] 2.4 g/dL Normal 2.2-4.2 [facility] Comment on above: Performed By: #### L 501.2400, L100.0100, L501.2450, L500.4050 #### [facility] [address] [place], [address] Serum glucose measurement (m ass/volume)Ordered By: Ramin Amaya on 03-13-2025 Glucose [Mass/Vol] 109 mg/dL High 70-99 [facility] Comment on above: Performed By: #### L 501.2400, L100.0100, L501.2450, L500.4050 #### [facility] [address] [place], [address] Serum or plasma alanine weems otransferase (ALT) measurementOrdered By: Ramin Amaya on 03-13-2025 ALT [Catalytic activity/Vol] 11 U/L Normal <=34 [facility] Comment on above: Performed By: #### L 501.2400, L100.0100, L501.2450, L500.4050 #### [facility] [address] [place], [address] Serum or plasma albumin lonnie urement (mass/volume)Ordered By: Ramin Amaya on 03-13-2025 Albumin [Mass/Vol] 4.0 g/dL Normal 3.4-4.8 [facility] Comment on above: Performed By: #### L 501.2400, L100.0100, L501.2450, L500.4050 #### [facility] [address] [place], [address] Serum or plasma albumin/glob ulin mass ratioOrdered By: Ramin Amaya on 03-13-2025 Albumin/Globulin [Mass ratio] 1.7 {ratio} Normal 0.9-2.4 [facility] Comment on above: Performed By: #### L 501.2400, L100.0100, L501.2450, L500.4050 #### [facility] [address] [place], [address] Serum or plasma alkaline debbie sphatase measurementOrdered By: Ramin Amaya on 03-13-2025 ALP [Catalytic activity/Vol] 151 U/L High 35-104 [facility] Serum or plasma amylase lonnie urement (enzymatic activity/volume)Ordered By: Ramin Amaya on 03-13-2025 Amylase [Catalytic activity/Vol] 60 U/L 28-100 [facility] Serum or plasma calcium lonnie urement (mass/volume)Ordered By: Ramin Amyaa on 03-13-2025 Calcium [Mass/Vol] 9.4 mg/dL Normal 7.6-11.0 [facility] Comment on above: Performed By: #### L 501.2400, L100.0100, L501.2450, L500.4050 #### [facility] [address] [place], [place], [id number] Serum or plasma urea nitroge n measurement (mass/volume)Ordered By: Ramin Amaya on 03-13-2025 Urea nitrogen [Mass/Vol] 18 mg/dL Normal 4-19 [facility] Comment on above: Performed By: #### L 501.2400, L100.0100, L501.2450, L500.4050 #### [facility] [address] [place], [address] Sodium levelOrdered By: Ramin Amaya on 03-13-2025 Sodium [Moles/Vol] 144 mmol/L Normal 133-145 [facility] Comment on above: Performed By: #### L 501.2400, L100.0100, L501.2450, L500.4050 #### [facility] [address] [place], [address] Thoracic Spine 3 Viewson Thoracic Spine [address] [facility] Imaging Services [address] [place] [address] Thoracic Spine 3 Views MR#: [id number] Acct: [id number] Name: JUAN FRANCISCO TANNER Rep #: [id number] : 1950 F 74 From: Warren Maier PCP: Dr. Ramin Amaya MD Status: REG CLI Study: Thoracic Spine 3 Views Date of Exam: 03/13/25 Exam# [id number] Ordering Dr: Ramin Amaya MD PROCEDURE: THORACIC SPINE 3 VIEWS 03/13/2025 REASON FOR EXAM: RACICULOPATHY TECHNIQUE: THORACIC SPINE 3 VIEWS COMPARISON: None FINDINGS: No acute thoracic spine fracture or subluxations. Alignment is grossly within normal limits. Mild multilevel degenerative changes of the thoracic spine. No focal consolidations. No pleural effusion or pneumothorax. Calcified aortic arch. Cardiac silhouette is within normal limits. RAD/Thoracic Spine 3 Views IMPRESSION: No acute thoracic spine fracture or subluxations. Consider CT/MR if there is continued concern for spinal pathology. Reading Location: [facility] CC: Dr. Ramin Amaya MD Parking Enforcement Officer: Signed Normal [facility] Total proteinOrdered By: Ramin Amaya on 03-13-2025 Protein [Mass/Vol] 6.4 g/dL 5.9-8.4 [facility] Urine cultureOrdered By: Ramin Amaya on 03-13-2025 Bacteria identified Cx Nom (U) Presumptive E. coli Abnormal [facility] Bacteria identified Cx Nom (U) Positive Abnormal [facility] White blood cell (WBC) count Ordered By: Ramin Amaya on 03-13-2025 WBC (Bld) [#/Vol] 8.4 10*3/uL 4.4-11.0 [facility] CBC W/Diff, Automatedon Absolute Lymph 3.67 X10 3/uL Normal 0.83-4.51 [facility] Comment on above: Performed By: #### M 100.638 #### [facility] [address] [place], [place], [address] Absolute Neut 3.6 X10 3/uL Normal 2.0-7.7 [facility] Comment on above: Performed By: #### M [id number] #### [facility] [address] [place], [address] Basophils/100 WBC (Bld) 0.9 % Normal 0-1 [facility] Comment on above: Performed By: #### M 100.678 #### [facility] [address] [place], [address] Eosinophils/100 WBC (Bld) 1.4 % Normal 0-5 [facility] Comment on above: Performed By: #### M 100.678 #### [facility] [address] [place], [address] Erythrocyte distribution width (RBC) [Ratio] 14.6 % Normal 11.6-14.6 [facility] Comment on above: Performed By: #### M 100.678 #### [facility] [address] [place], [address] Hematocrit (Bld) [Volume fraction] 51.7 % High 37-47 [facility] Comment on above: Performed By: #### M 100.678 #### [facility] [address] [place], [address] Hemoglobin (Bld) [Mass/Vol] 16.2 g/dL High 12.0-15.0 [facility] Comment on above: Performed By: #### M 100.678 #### [facility] [address] [place], [address] IG% 0.900 Normal 0.0-0.9 [facility] Comment on above: Result Comment: IG% - Immature Granulocytes (promyelocytes, myelocytes and metamyelocytes) > 1% indicates that a LEFT SHIFT is Present. Performed By: #### M 100.678 #### [facility] [address] [place], [address] Lymphocytes/100 WBC (Bld) 45.8 % High 19-41 [facility] Comment on above: Performed By: #### M 100.678 #### [facility] [address] [place], [address] MCH (RBC) [Entitic mass] 28.8 pg Normal 27.0-32.0 [facility] Comment on above: Performed By: #### M 100.678 #### [facility] [address] [place], [address] MCHC (RBC) [Mass/Vol] 31.3 g/dL Low 32-36 [facility] Comment on above: Performed By: #### M 100.678 #### [facility] [address] [place], [address] MCV (RBC) [Entitic vol] 91.8 fL Normal 81-99 [facility] Comment on above: Performed By: #### M 100.678 #### [facility] [address] [place], [address] Monocytes/100 WBC (Bld) 6.2 % Normal 0-10 [facility] Comment on above: Performed By: #### M 100.678 #### [facility] [address] [place], [address] Neutrophils/100 WBC (Bld) 44.8 % Low 47-70 [facility] Comment on above: Performed By: #### M 100.678 #### [facility] [address] [place], [address] Nucleated RBC (Bld) [#/Vol] 0 10*3/uL Normal 0-5 [facility] Comment on above: Performed By: #### M 100.678 #### [facility] [address] [place], [address] Platelet mean volume (Bld) [Entitic vol] 11.4 fL Normal 6.2-12.0 [facility] Comment on above: Performed By: #### M 100.678 #### [facility] [address] [place], [address] Platelets (Bld) [#/Vol] 316 10*3/uL Normal 150-450 [facility] Comment on above: Performed By: #### M 100.678 #### [facility] [address] [place], [address] RBC (Bld) [#/Vol] 5.63 10*6/uL High 4.2-5.4 [facility] Comment on above: Performed By: #### M 100.678 #### [facility] [address] [place], [address] RDW SD 48.3 fl High 35.1-43.9 [facility] Comment on above: Performed By: #### M 100.678 #### [facility] [address] [place], [address] WBC (Bld) [#/Vol] 8.0 10*3/uL Normal 4.4-11.0 [facility] Comment on above: Performed By: #### M 100.678 #### [facility] [address] [place], [address] Comprehensive Metabolic Prof ilon 10-17-2024 Albumin [Mass/Vol] 3.9 g/dL Normal 3.2-5.0 [facility] Comment on above: Performed By: #### M 100.678 #### [facility] [address] [place], [address] Albumin/Globulin [Mass ratio] 1.2 {ratio} Normal 0.9-2.4 [facility] Comment on above: Performed By: #### M 100.678 #### [facility] [address] [place], [address] ALK P 163 U/L High 45-117 [facility] Comment on above: Performed By: #### M 100.678 #### [facility] [address] [place], [address] ALT [Catalytic activity/Vol] 17 U/L Normal 13-56 [facility] Comment on above: Performed By: #### M 100.678 #### [facility] [address] [place], [address] AST [Catalytic activity/Vol] 14 U/L Low 15-37 [facility] Comment on above: Performed By: #### M 100.678 #### [facility] [address] [place], [address] Bilirubin [Mass/Vol] 0.80 mg/dL Normal 0.20-1.00 [facility] Comment on above: Result Comment: For patients on eltrombopag therapy, use of Dimension [place] TBIL is not recommended. Performed By: #### M 100.678 #### [facility] [address] [place], [address] BUN/CRE 9.8 RATIO Low 10-20 [facility] Comment on above: Performed By: #### M 100.678 #### [facility] [address] [place], [address] CA,Total 9.1 mg/dL Normal 8.5-10.1 [facility] Comment on above: Performed By: #### M 100.678 #### [facility] [address] [place], [address] Chloride [Moles/Vol] 111 mmol/L High 98-107 [facility] Comment on above: Performed By: #### M 100.678 #### [facility] [address] [place], [address] CO2 [Moles/Vol] 17.0 mmol/L Low 21.0-32.0 [facility] Comment on above: Performed By: #### M 100.678 #### [facility] [address] [place], [address] Creatinine [Mass/Vol] 1.63 mg/dL High 0.55-1.02 [facility] Comment on above: Result Comment: The validity of the calculated GFR GFRAA in patients over 70 years has not been determined. Clinical correlation is essential. Performed By: #### M 100.678 #### [facility] [address] [place], [address] EST GFR - AA 40 mL/min Low >60 [facility] Comment on above: Result Comment: Afri can [place] GFR Calc Performed By: #### M 100.678 #### [facility] [address] [place], [address] GAP 10 Normal 5-15 [facility] Comment on above: Performed By: #### M 100.678 #### [facility] [address] [place], [address] GFR/1.73 sq M.predicted among non-blacks MDRD (S/P/Bld) [Vol rate/Area] 33 mL/min/{1.73_m2} Low >60 [facility] Comment on above: Result Comment: Non- GFR Calc Performed By: #### M 100.678 #### [facility] [address] [place], [address] Globulin (S) [Mass/Vol] 3.3 g/dL Normal 2.2-4.2 [facility] Comment on above: Performed By: #### M 100.678 #### [facility] [address] [place], [address] Glucose [Mass/Vol] 133 mg/dL High 74-106 [facility] Comment on above: Result Comment: Fast ing Glucose result greater than or equal to 126 mg/dL suggests DIABETES MELLITUS per A.D.A. criteria. Performed By: #### M 100.678 #### [facility] [address] [place], [address] Potassium [Moles/Vol] 3.9 mmol/L Normal 3.5-5.1 [facility] Comment on above: Performed By: #### M 100.678 #### [facility] [address] [place], [address] Sodium [Moles/Vol] 138 mmol/L Normal 136-145 [facility] Comment on above: Performed By: #### M 100.678 #### [facility] [address] [place], [address] T PROT 7.2 g/dL Normal 6.4-8.2 [facility] Comment on above: Performed By: #### M 100.678 #### [facility] [address] [place], [address] Urea nitrogen [Mass/Vol] 16 mg/dL Normal 7-18 [facility] Comment on above: Performed By: #### M 100.678 #### [facility] [address] [place], [address] Thyroid Stim Hormone (TSH)on 10-17-2024 TSH 5.070 uIU/mL High 0.358-3.740 [facility] Comment on above: Performed By: #### M 100.678 #### [facility] [address] [place], [address] Vitamin D,25 Hydroxyon 10-17 Vitamin D 25-OH 33.1 ng/mL Normal [facility] Comment on above: Result Comment: Nany min D 25(OH) Status Range Deficiency <20 ng/mL (50nmol/L) Insufficiency 20 - 30 ng/mL (50 - 75 nmol/L) Sufficiency 30 - 100 ng/mL (75 - 250 nmol/L) Toxicity >100 ng/mL (>250 nmol/L) Performed By: #### M 100.678 #### [facility] [address] [place], [address] Echo Completeon 05-25-2024 Echo Complete [facility] [address] [place] [address] Echo Complete 05/25/24 1508 MR#: [id number] Acct: [id number] Name: JUAN FRANCISCO TANNER Rep #: [id number] : 1950 74 From: Julian Lundberg MD Attending Dr: Dr. Joseph Figueroa MD Status: RE G CLI Ordering Dr: Joseph Figueroa MD Date: 05/25/24 Location: [facility] Sex: F C Admitted: Version 2 Reason For Study: DYSPNEA Procedure This was a 2D Doppler, Color Flow transthoracic echocardiogram. Exam performed in department. Left Ventricle Normal LV size. The estimated ejection fraction is 70 %. No evidence for diastolic dysfunction. No regional wall motion abnormalities noted. Right Ventricle Normal RV size. Normal systolic function. Atria The left and right atria are normal. No doppler evidence for ASD. Mitral Valve There is no mitral valve stenosis. No mitral valve insufficiency. Tricuspid Valve There is no tricuspid stenosis. Unable to estimate RV systolic pressure due to inadequate jet, pulmonary artery pressure probably normal. Aortic Valve Trisinus/trileaflet aortic valve. There is no aortic stenosis. No aortic valve insufficiency. Pulmonic Valve There is no pulmonic valvular stenosis. No pulmonic valve insufficiency. Great Vessels Normal aortic root. Pericardium/Pleural Small pericardial effusion. MMode/2D Measurements Calculations LVIDd: 3.8 cm IVSd: 1.2 cm LAV(MOD-bp): 24.5 ml LVIDs: 2.3 cm LVPWd: 1.1 cm LAV(MOD-bp) Indexed: 12.7 ml/m2 FS: 38.9 % LAV(MOD-sp2): 24.4 ml LAV(MOD-sp4): 23.7 ml _ SV(MOD-sp4): 35.0 ml SV(sp4-el): 34.8 ml LVAd ap4: 17.8 cm2 LVLd ap4: 6.3 cm EDV(MOD-sp4): 43.6 ml EDV(sp4-el): 42.8 ml LVAs ap4: 7.2 cm2 LVLs ap4: 5.4 cm ESV(MOD-sp4): 8.6 ml ESV(sp4-el): 8.0 ml EF(MOD-sp4): 80.3 % EF(sp4-el): 81.3 % _ LA A4 area: 12.5 cm2 LA dimension(2D): 2.7 cm RA A4 area: 9.4 cm2 Time Measurements MV dec time: 0.22 sec Doppler Measurements Calculations MV E max prakash: 77.6 cm/sec Lat Peak E' Prakash: 7.3 cm/sec Med Peak E' Prakash: 5.1 cm/sec MV A max prakash: 90.4 cm/sec E/E' lat: 10.6 E/E' med: 15.2 MV E/A: 0.86 _ MV V2 max: 83.4 cm/sec MV dec slope: 359.6 cm/sec2 Ao V2 max: 156.9 cm/sec MV max P.8 mmHg Ao max P.8 mmHg MV V2 mean: 44.0 cm/sec Ao V2 mean: 100.4 cm/sec MV mean P.98 mmHg Ao mean P.7 mmHg MV V2 VTI: 33.4 cm Ao V2 VTI: 32.1 cm AV (velocity ratio): 0.86 _ LV V1 max: 143.6 cm/sec PA V2 max: 72.7 cm/sec LV V1 max P.3 mmHg PA V2 mean: 55.7 cm/sec LV V1 mean P.8 mmHg LV V1 mean: 88.3 cm/sec LV V1 VTI: 27.6 cm ECHO/Echo Complete Interpretation Summary The estimated ejection fraction is 70 %. No evidence for diastolic dysfunction. Small pericardial effusion. Ordering Physician: Joseph Figueroa Referring Physician: Joseph Figueroa Performed By: Ligia Ruelas RCS 05/26/24 1157 Date Julian Lundberg MD CC: Dr. Joseph Figueroa MD; Dr. Ramin Amaya MD Date Dictated: 05/25/24 1508 Date Transcribed: 05/26/24 1156 Parking Enforcement Officer: Signed Keri [facility] Office Visit Reporton 2023 Office Visit Report [facility] [address] [place] [address] OFFICE VISIT Date of Service: 05/25/24 MR#: [id number] Acct: [id number] Patient: JUAN FRANCISCO TANNER Rep #: [id number] : 1950 Provider: Dr. Joseph salmon MD Age/Sex: 74/F [place] [facility] Status: Signed Intake Vital Signs 05/09/24 11:08 05/25/24 14:28 Height 5 ft 2 in Weight: 204 lb BMI 37.3 BP 139/88 H 134/84 H Blood Pressure Location Lt brachial Lt brachial Position Sitting Sitting Respiration 18 18 Pulse 80 73 Pulse Source Monitor NIBP Pulse Oximetry (%) 96 Oxygen Delivery Method room air Intake Visit Reasons: 2 WK BP Check Chief Complaint: Scratchy throat Allergies azithromycin Allergy (Verified 05/09/24 11:10) unknown doxycycline (From Vibramycin) Allergy (Verified 05/09/24 11:10) Other Penicillins Allergy (Verified 05/09/24 11:10) Rash Sulfa (Sulfonamide Antibiotics) Allergy (Verified 05/09/24 11:10) Rash erythromycin base Adverse Reaction (Verified 05/09/24 11:10) Upset Stomach Have you fallen in the past year?: No Nursing Note Pt in for follow up BP check following medication changes. Noted BP cuff causing pain in arm. Repeat checks continued to elevate, therefore stopped. Clinical Quality Measures Falls Risk Screening/Assistive Devices Have you fallen in the past year?: No 05/25/24 1554 Date Joseph Figueroa MD Cosigner Signature: Date (if applicable) CC: Normal [facility] M100.678on 05-15-2024 M100.678 Pending SARS-CoV-2 (COVID 19) Negative INFLUENZA A Negative INFLUENZA B Negative RSV PCR Negative [facility] Comment on above: Performed By: #### M 100.212 #### [facility] [place], [address] 12 Lead EKG performed by [facility] on 05-09-2024 12 Lead EKG performed by [facility] [address] [place] [address] 12 Lead EKG performed by [facility] 05/09/24 0841 MR#: [id number] Acct: [id number] Name: JUAN FRANCISCO TANNER Rep #: [id number] : 1950 74 From: Joseph Figueroa MD Attending Dr: Dr. Joseph Figueroa MD Status: DE P AMB Ordering Dr: Joseph Figueroa MD Date: 05/09/24 Location: [facility] Sex: F C Admitted: [facility]/12 Lead EKG performed by [facility] ECG Report Interpretation ------Sinus Rhythm -With rate variation cv = 14.- Nonspecific T-abnormality. ABNORMAL Electronically signed on 05/09/2024 at 12:[address] Joseph Figueroa [employer] Version 8610 05/09/24 1221 Date Joseph Figueroa MD CC: Dr. Ramin Amaya MD Date Dictated: 05/09/24840 Date Transcribed: 05/09/24840 Parking Enforcement Officer: Signed Normal [facility] Cardiology Visit Reporton Cardiology Visit Report [facility] [address] [place] [address] OFFICE VISIT Date of Service: 05/09/24 MR#: [id number] Acct: [id number] Name: JUAN FRANCISCO TANNER Rep #: [id number] : 1950 Provider: Dr. Joseph salmon MD Age/Sex: 74/F Location: [facility] Status: Signed HPI HPI History of Present Illness Details: The patient comes in for new patient visit is a pleasant 74-year-old white female. Her chief complaint is profuse episodic sweating and dyspnea on exertion. This actually has been going on since 2021 when she suffered infections with COVID and then sequentially with influenza B. She denies any PND orthopnea she denies any significant lower extremity edema. She is fairly active up and about. The patient denies any syncope or near syncope she denies any chest pains. Her EKG in the office today showed normal sinus rhythm at 80 bpm with some flattening of the T waves across the precordium. This was not much different from an old EKG from July 2022. On that EKG she had more distinct inverted T waves in the same distribution. The patient has a history of a dobutamine stress echo it sounds like it [facility] which I do not have records from. This was done as part of a preop clearance when she was noticed to have an abnormal EKG in the past. She reports that she was cleared for surgery but told that her heart was in an unusual place in her chest. The patient reports that her sweating has become more prominent in the heat of the summer time but it was prevalent even during the wintertime. Patient's cardiac risk factors include a positive family history of father having an infarct at age 55, she is hyperlipidemic not on therapy she is hypertensive. She has never smoked and denies a history of diabetes. Intake Vital Signs 08/11/22 01:19 05/09/24 11:08 Height 5 ft 2 in 5 ft 2 in Weight: 204 lb BMI 37.3 BP 139/88 H Blood Pressure Location Lt brachial Position Sitting Respiration 18 Pulse 80 Pulse Source Monitor Pulse Oximetry (%) 96 Oxygen Delivery Method room air Intake Visit Reasons: Excessive Sweating/ SOB (Self) Glass Worker Required: No Accompanied by: Self Is patient in pain?: No Allergies azithromycin Allergy (Verified 05/09/24 11:10) unknown doxycycline (From Vibramycin) Allergy (Verified 05/09/24 11:10) Other Penicillins Allergy (Verified 05/09/24 11:10) Rash Sulfa (Sulfonamide Antibiotics) Allergy (Verified 05/09/24 11:10) Rash erythromycin base Adverse Reaction (Verified 05/09/24 11:10) Upset Stomach Medications ???Medication ???Instructions ???Recorded ???Confirmed ???Type mv-min-vit C-ascorb 1 tab PO DAILY supplement 08/06/20 05/09/24 History Rm-Gtq-Azk-herb #124 333 mg-1.7 mg chewable tablet (Airborne (ascorbate sodium)) zicam 1 tab PO Q4H PRN PRN Cold Symptoms 08/06/20 05/09/24 History cholecalciferol (vitamin D3) 10 10 mcg PO DAILY supplement 08/10/22 05/09/24 History mcg (400 unit) capsule (Vitamin D3) erythromycin 5 mg/gram (0.5 %) eye ophthalmic (eye) 05/09/24 05/09/24 History ointment levothyroxine 25 mcg tablet 25 mcg PO QDAY 05/09/24 05/09/24 History metoprolol succinate 25 mg 25 mg PO DAILY #30 tabs 05/09/24 05/09/24 Rx tablet,extended release 24 hr Have you fallen in the past year?: No PFSH Medical History Hypothyroidism Asthma Atrophic vaginitis Hyperlipidemia Declining functional status Weakness 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 Incontinence Chronic neck and back pain Knee pain Hay fever Fatigue Arthritis HTN (hypertension) Surgical History History of hernia repair History of cholecystectomy History of hysterectomy History of appendectomy Family History Father CVA (cerebral vascular accident) Diabetes CAD (coronary artery disease) Myocardial infarction Brother Diabetes Grandmother Cancer Social History Smoking Status: Never smoker alcohol intake: never substance use type: does not use caffeine: Yes ROS Const Const: Positive for fatigue and excessive sweating; Negative for weakness ENT ENT: Negative for dizziness or balance problems Cardio Chest Pain: No Palpitations: No Edema: Bilateral (after being on feet for long periods) Muscle aches with walking: None Resp Respiratory: Positive for SOB with activity (has asthma); Negative for SOB at rest or SOB orthopnea SOB lying down GI GI: Positive for nausea; Negative vomiting or heartburn Musc Musc: Negative for muscle weakness or balance problems Neuro Neuro (more content not included)... Normal [facility] Absolute lymphocyte countOrd ered By: Ramin Amaya on 10-06-2023 Lymphocytes Auto (Unsp spec) [#/Vol] 4.55 10*3/uL 0.83-4.51 [facility] Automated lymphocyte count a s percentage of total leukocytesOrdered By: Ramin Amaya on 10-06-2023 Lymphocytes/100 WBC Auto (Unsp spec) 44.3 % 19-41 [facility] Basophil percentageOrdered B y: Ramin Amaya on 10-06-2023 Basophils/100 WBC (Bld) 0.7 % 0-1 [facility] Bilirubin [Mass/Vol] 0.30 mg/dL 0.20-1.00 [facility] Comment on above: For patients on eltr ombopag therapy, use of Dimension [place] TBIL is not recommended. Chloride [Moles/Vol] 107 mmol/L 98-107 [facility] Cholesterol [Mass/Vol] 239 mg/dL <200 [facility] Comment on above: <200 mg/dL Desirable 200-240 mg/dL Borderline >240 mg/dL High Risk Eosinophils/100 WBC (Bld) 1.4 % 0-5 [facility] Glucose [Mass/Vol] 113 mg/dL 74-106 [facility] Comment on above: Fasting Glucose resu lt from 100 to 125 mg/dL suggests IMPAIRED HOMEOSTASIS per A.D.A. criteria. Hemoglobin (Bld) [Mass/Vol] 15.1 g/dL 12.0-15.0 [facility] Monocytes/100 WBC (Bld) 5.8 % 0-10 [facility] Neutrophils (Bld) [#/Vol] 4.8 10*3/uL 2.0-7.7 [facility] Neutrophils/100 WBC (Bld) 46.8 % 47-70 [facility] Potassium [Moles/Vol] 3.8 mmol/L 3.5-5.1 [facility] Protein [Mass/Vol] 7.0 g/dL 6.4-8.2 [facility] Sodium [Moles/Vol] 139 mmol/L 136-145 [facility] Triglyceride [Mass/Vol] 374 mg/dL <199 [facility] Comment on above: The drugs N-Acetylcy steine and Metamizole may falsely depress this assay.Serum Triglycerides Reference Interval Normal <150 mg/dL Borderline high 150 - 199 mg/dL High 200 - 499 mg/dL Very High > or = 500 mg/dL WBC (Bld) [#/Vol] 10.3 10*3/uL 4.4-11.0 [facility] Determination of erythrocyte mean corpuscular volume (MCV)Ordered By: Ramin Amaya on 10-06-2023 MCV (RBC) [Entitic vol] 88.9 fL 81-99 [facility] Erythrocyte distribution wid th ratioOrdered By: [facility] on 10-06-2023 Erythrocyte distribution width (RBC) [Ratio] 14.2 % 11.6-14.6 [facility] Erythrocyte distribution wid th standard deviationOrdered By: [facility] on 10-06-2023 Erythrocyte distribution width (RBC) [Entitic vol] 45.6 fL 35.1-43.9 [facility] Hematocrit Auto (Bld) [Volum e fraction]Ordered By: [facility] 10-06-2023 Hematocrit (Bld) [Volume fraction] 47.3 % 37-47 [facility] High density lipoprotein (HD L) measurementOrdered By: [facility] 10-06-2023 Cholesterol in HDL (Body fld) [Mass/Vol] 32 mg/dL >40 [facility] Comment on above: The drugs N-Acetylcy steine and Metamizole may falsely depress this assay. Reference Range HDL <40 mg/dL Low HDL Cholesterol HDL >or= 60 mg/dL High HDL Cholesterol Immature granulocytes/100 WB C Auto (Bld)Ordered By: Ramin Amaya 10-06-2023 Immature granulocytes/100 WBC (Bld) 1.000 % 0.0-0.9 [facility] Comment on above: IG% - Immature Granu locytes (promyelocytes, myelocytes and metamyelocytes) > 1% indicates that a LEFT SHIFT is Present. Laboratory - Chemistry and C hemistry - challengeOrdered By: Ramin Jose Luis 10-06-2023 Albumin/Globulin [Mass ratio] 1.1 {ratio} 0.9-2.4 [facility] ALP [Catalytic activity/Vol] 145 U/L 45-117 [facility] ALT [Catalytic activity/Vol] 25 U/L 13-56 [facility] CO2 [Moles/Vol] 24.0 mmol/L 21.0-32.0 [facility] Globulin (S) [Mass/Vol] 3.4 g/dL 2.2-4.2 [facility] Urea nitrogen/Creatinine [Mass ratio] 23.9 mg/mg 10-20 [facility] - Hematology and Cell countsOrdered By: Ramin Amaya on 10-06-2023 MCH (RBC) [Entitic mass] 28.4 pg 27.0-32.0 [facility] MCHC (RBC) [Mass/Vol] 31.9 g/dL 32-36 [facility] Nucleated RBC/100 WBC (Bld) [Ratio] 0 % 0-5 [facility] Platelets (Bld) [#/Vol] 357 10*3/uL 150-450 [facility] Low density lipoprotein (LDL ) cholesterol measurementOrdered By: Ramin Amaya on 10-06-2023 Cholesterol in LDL (Body fld) [Moles/Vol] 132 mg/dL 0-130 [facility] No Panel InformationOrdered By: Ramin Amaya on 10-06-2023 Estimated GFR (MDRD) Amer 50 mL/min >60 [facility] Comment on above: GFR Calc Estimated GFR (MDRD) Non-Af Amer 41 mL/min >60 [facility] Comment on above: Non- GFR Calc Vitamin D 25-Hydroxy 63.2 ng/mL [facility] Comment on above: Vitamin D 25(OH) Sta tus Range Deficiency <20 ng/mL (50nmol/L) Insufficiency 20 - 30 ng/mL (50 - 75 nmol/L) Sufficiency 30 - 100 ng/mL (75 - 250 nmol/L) Toxicity >100 ng/mL (>250 nmol/L) Platelet mean volume Jarad-Ec ker (Bld) [Entitic vol]Ordered By: Ramin Amaya on 10-06-2023 Platelet mean volume (Bld) [Entitic vol] 10.3 fL 6.2-12.0 [facility] RBC Auto (Bld) [#/Vol]Ordere d By: Ramin Amaya on 10-06-2023 RBC (Bld) [#/Vol] 5.32 10*6/uL 4.2-5.4 [facility] Serum or plasma calcium lonnie urement (mass/volume)Ordered By: Ramin Amaya on 10-06-2023 Calcium [Mass/Vol] 9.5 mg/dL 8.5-10.1 [facility] Serum or plasma creatinine m easurement (mass/volume)Ordered By: Ramin Amaya on 10-06-2023 Creatinine [Mass/Vol] 1.34 mg/dL 0.55-1.02 [facility] Comment on above: The validity of the calculated GFR & GFRAA in patients over 70 years has not been determined. Clinical correlation is essential. Serum or plasma thyroid stim ulating hormone (TSH) measurement (units/volume)Ordered By: Ramin Amaya on 10-06-2023 TSH Qn 5.43 uIU/mL 0.358-3.74 [facility] Serum or plasma urea nitroge n measurement (mass/volume)Ordered By: Ramin Amaya on 10-06-2023 Urea nitrogen [Mass/Vol] 32 mg/dL 7-18 [facility] Thin prep Papanicolaou smear with manual screeningOrdered By: Ramin Amaya on 10-06-2023 Thin prep Papanicolaou smear with manual screening 3.6 g/dL 3.2-5.0 [facility] Thin prep Papanicolaou smear with manual screening 15 U/L 15-37 [facility] Thin prep Papanicolaou smear with manual screening 8 5-15 [facility] Very low density lipoprotein (VLDL) cholesterol measurementOrdered By: Ramin Amaya on 10-06-2023 Cholesterol in VLDL Calc [Moles/Vol] 75 mg/dL 5-40 [facility] Absolute lymphocyte countOrd ered By: Ramin Amaya on 09-30-2022 Lymphocytes Auto (Unsp spec) [#/Vol] 2.36 10*3/uL 0.83-4.51 [facility] Basophil percentageOrdered B y: Ramin Amaya on 09-30-2022 Basophils/100 WBC (Bld) 0.9 % 0-1 [facility] Bilirubin [Mass/Vol] 0.70 mg/dL 0.20-1.00 [facility] Comment on above: For patients on eltr ombopag therapy, use of Dimension [place] TBIL is not recommended. Chloride [Moles/Vol] 109 mmol/L 98-107 [facility] Eosinophils/100 WBC (Bld) 3.0 % 0-5 [facility] Glucose [Mass/Vol] 100 mg/dL 74-106 [facility] Comment on above: Fasting Glucose resu lt from 100 to 125 mg/dL suggests IMPAIRED HOMEOSTASIS per A.D.A. criteria. Neutrophils (Bld) [#/Vol] 2.4 10*3/uL 2.0-7.7 [facility] Neutrophils/100 WBC (Bld) 44.7 % 47-70 [facility] Potassium [Moles/Vol] 4.2 mmol/L 3.5-5.1 [facility] Protein [Mass/Vol] 6.8 g/dL 6.4-8.2 [facility] Sodium [Moles/Vol] 140 mmol/L 136-145 [facility] WBC (Bld) [#/Vol] 5.3 10*3/uL 4.4-11.0 [facility] Blood erythrocytes count (nu mber/volume)Ordered By: Ramin Amaya on 09-30-2022 RBC (Bld) [#/Vol] 4.98 10*6/uL 4.2-5.4 [facility] Blood hemoglobin measurement (mass/volume)Ordered By: Ramin Amaay on 09-30-2022 Hemoglobin (Bld) [Mass/Vol] 14.1 g/dL 12.0-15.0 [facility] Blood lymphocytes/100 leukoc ytesOrdered By: Ramin Amaya on 09-30-2022 Lymphocytes/100 WBC (Bld) 44.2 % 19-41 [facility] Blood monocytes/100 leukocyt esOrdered By: Ramin Amaya on 09-30-2022 Monocytes/100 WBC (Bld) 6.6 % 0-10 [facility] Blood platelet mean volumeOr dered By: Ramin Amaya on 09-30-2022 Platelet mean volume (Bld) [Entitic vol] 11.0 fL 6.2-12.0 [facility] Determination of erythrocyte mean corpuscular volume (MCV)Ordered By: Ramin Amaya on 09-30-2022 MCV (RBC) [Entitic vol] 91.6 fL 81-99 [facility] Hematocrit Auto (Bld) [Volum e fraction]Ordered By: Ramin Amaya on 09-30-2022 Hematocrit (Bld) [Volume fraction] 45.6 % 37-47 [facility] Laboratory - Chemistry and C hemistry - challengeOrdered By: Ramin Amaya on 09-30-2022 ALP [Catalytic activity/Vol] 128 U/L 45-117 [facility] ALT [Catalytic activity/Vol] 19 U/L 13-56 [facility] CO2 [Moles/Vol] 22.0 mmol/L 21.0-32.0 [facility] Globulin (S) [Mass/Vol] 3.1 g/dL 2.2-4.2 [facility] Urea nitrogen/Creatinine [Mass ratio] 14.2 mg/mg 10-20 [facility] - Hematology and Cell countsOrdered By: Ramin Amaya on 09-30-2022 Erythrocyte distribution width (RBC) [Entitic vol] 50.2 fL 35.1-43.9 [facility] Erythrocyte distribution width (RBC) [Ratio] 15.1 % 11.6-14.6 [facility] Immature granulocytes/100 WBC (Bld) 0.600 % 0.0-0.9 [facility] Comment on above: IG% - Immature Granu locytes (promyelocytes, myelocytes and metamyelocytes) > 1% indicates that a LEFT SHIFT is Present. MCH (RBC) [Entitic mass] 28.3 pg 27.0-32.0 [facility] Nucleated RBC/100 WBC (Bld) [Ratio] 0 % 0-5 [facility] MCHC Auto (RBC) [Mass/Vol]Or dered By: Ramin Amaya on 09-30-2022 MCHC (RBC) [Mass/Vol] 30.9 g/dL 32-36 [facility] No Panel InformationOrdered By: Ramin Amaya on 09-30-2022 Estimated GFR (MDRD) Amer 66 mL/min >60 [facility] Comment on above: GFR Calc Estimated GFR (MDRD) Non-Af Amer 54 mL/min >60 [facility] Comment on above: Non- GFR Calc Thyroid Stimulating Hormone (TSH) 1.99 uIU/mL 0.358-3.74 [facility] Vitamin D 25-Hydroxy 43.4 ng/mL [facility] Comment on above: Vitamin D 25(OH) Sta tus Range Deficiency <20 ng/mL (50nmol/L) Insufficiency 20 - 30 ng/mL (50 - 75 nmol/L) Sufficiency 30 - 100 ng/mL (75 - 250 nmol/L) Toxicity >100 ng/mL (>250 nmol/L) Platelets bldOrdered By: Ramin Amaya on 09-30-2022 Platelets (Bld) [#/Vol] 261 10*3/uL 150-450 [facility] Serum or plasma albumin lonnie urement (mass/volume)Ordered By: Ramin Amaya on 09-30-2022 Albumin [Mass/Vol] 3.7 g/dL 3.2-5.0 [facility] Serum or plasma albumin/glob ulin mass ratioOrdered By: Ramin Amaya on 09-30-2022 Albumin/Globulin [Mass ratio] 1.2 {ratio} 0.9-2.4 [facility] Serum or plasma calcium lonnie urement (mass/volume)Ordered By: Ramin Amaya on 09-30-2022 Calcium [Mass/Vol] 9.1 mg/dL 8.5-10.1 [facility] Serum or plasma creatinine m easurement (mass/volume)Ordered By: Ramin Amaya on 09-30-2022 Creatinine [Mass/Vol] 1.06 mg/dL 0.55-1.02 [facility] Comment on above: The validity of the calculated GFR & GFRAA in patients over 70 years has not been determined. Clinical correlation is essential. Serum or plasma urea nitroge n measurement (mass/volume)Ordered By: Ramin Amaya on 09-30-2022 Urea nitrogen [Mass/Vol] 15 mg/dL 7-18 [facility] Thin prep Papanicolaou smear with manual screeningOrdered By: Ramin Amaya 09-30-2022 Thin prep Papanicolaou smear with manual screening 14 U/L 15-37 [facility] Thin prep Papanicolaou smear with manual screening 9 5-15 [facility] Laboratory - Microbiology an d Antimicrobial susceptibilityOrdered By: Dr. Ramirez on 08-16-2022 Bacteria identified Cx Nom (Bld) No growth in [address] [facility] Culture, urineOrdered By: Dr Fish Ramirez on 08-12-2022 Bacteria identified Cx Nom (U) Mixed Gram Pos & Gram Neg Org [facility] Absolute lymphocyte countOrd ered By: Dr. Galindo on 08-11-2022 Lymphocytes Auto (Unsp spec) [#/Vol] 1.50 10*3/uL 0.83-4.51 [facility] Basophil percentageOrdered B y: Dr. Galindo on 08-11-2022 Basophils/100 WBC (Bld) 0.2 % 0-1 [facility] Chloride [Moles/Vol] 108 mmol/L 98-[facility] Eosinophils/100 WBC (Bld) 0.2 % 0-5 [facility] Glucose [Mass/Vol] 119 mg/dL 74-106 [facility] Comment on above: Fasting Glucose resu lt from 100 to 125 mg/dL suggests IMPAIRED HOMEOSTASIS per A.D.A. criteria. Neutrophils (Bld) [#/Vol] 3.3 10*3/uL 2.0-7.7 [facility] Neutrophils/100 WBC (Bld) 62.0 % 47-70 [facility] Potassium [Moles/Vol] 3.5 mmol/L 3.5-5.1 [facility] Sodium [Moles/Vol] 139 mmol/L 136-145 [facility] WBC (Bld) [#/Vol] 5.3 10*3/uL 4.4-11.0 [facility] Blood erythrocytes count (nu mber/volume)Ordered By: Dr. Galindo on 08-11-2022 RBC (Bld) [#/Vol] 4.58 10*6/uL 4.2-5.4 [facility] Blood hemoglobin measurement (mass/volume)Ordered By: Dr. Galindo on 08-11-2022 Hemoglobin (Bld) [Mass/Vol] 13.0 g/dL 12.0-15.0 [facility] Blood lymphocytes/100 leukoc ytesOrdered By: Dr. Galindo on 08-11-2022 Lymphocytes/100 WBC (Bld) 28.1 % 19-41 [facility] Blood monocytes/100 leukocyt esOrdered By: Dr. Galindo on 08-11-2022 Monocytes/100 WBC (Bld) 8.4 % 0-10 [facility] Blood platelet mean volumeOr dered By: Dr. Galindo on 08-11-2022 Platelet mean volume (Bld) [Entitic vol] 10.3 fL 6.2-12.0 [facility] Determination of erythrocyte mean corpuscular volume (MCV)Ordered By: Dr. Galindo on 08-11-2022 MCV (RBC) [Entitic vol] 91.7 fL 81-99 [facility] Hematocrit Auto (Bld) [Volum e fraction]Ordered By: Dr. Galindo on 08-11-2022 Hematocrit (Bld) [Volume fraction] 42.0 % 37-47 [facility] Laboratory - Chemistry and C hemistry - challengeOrdered By: Dr. Galindo on 08-11-2022 CO2 [Moles/Vol] 25.0 mmol/L 21.0-32.0 [facility] Urea nitrogen/Creatinine [Mass ratio] 11.2 mg/mg 10-20 [facility] Laboratory - Hematology and Cell countsOrdered By: Dr. Galindo on 08-11-2022 Erythrocyte distribution width (RBC) [Entitic vol] 48.2 fL 35.1-43.9 [facility] Erythrocyte distribution width (RBC) [Ratio] 14.4 % 11.6-14.6 [facility] Immature granulocytes/100 WBC (Bld) 1.100 % 0.0-0.9 [facility] Comment on above: IG% - Immature Granu locytes (promyelocytes, myelocytes and metamyelocytes) > 1% indicates that a LEFT SHIFT is Present. MCH (RBC) [Entitic mass] 28.4 pg 27.0-32.0 [facility] Nucleated RBC/100 WBC (Bld) [Ratio] 0 % 0-5 [facility] MCHC Auto (RBC) [Mass/Vol]Or dered By: Dr. Galindo on 08-11-2022 MCHC (RBC) [Mass/Vol] 31.0 g/dL 32-36 [facility] No Panel InformationOrdered By: Dr. Galindo on 08-11-2022 Estimated Creatinine Clearance Calc 41.64 ml/min [facility] Estimated GFR (MDRD) Amer 72 mL/min >60 [facility] Comment on above: GFR Calc Estimated GFR (MDRD) Non-Af Amer 59 mL/min >60 [facility] Comment on above: Non- GFR Calc Platelets bldOrdered By: Dr. Galindo on 08-11-2022 Platelets (Bld) [#/Vol] 188 10*3/uL 150-450 [facility] Serum or plasma calcium lonnie urement (mass/volume)Ordered By: Dr. Galindo on 08-11-2022 Calcium [Mass/Vol] 8.2 mg/dL 8.5-10.1 [facility] Serum or plasma creatinine m easurement (mass/volume)Ordered By: Dr. Galindo on 08-11-2022 Creatinine [Mass/Vol] 0.98 mg/dL 0.55-1.02 [facility] Comment on above: The validity of the calculated GFR & GFRAA in patients over 70 years has not been determined. Clinical correlation is essential. Serum or plasma urea nitroge n measurement (mass/volume)Ordered By: Dr. Galindo on 08-11-2022 Urea nitrogen [Mass/Vol] 11 mg/dL 7-18 [facility] Thin prep Papanicolaou smear with manual screeningOrdered By: Dr. Galindo on 08-11-2022 Thin prep Papanicolaou smear with manual screening 6 5-15 [facility] Absolute lymphocyte counton 08-10-2022 Lymphocytes Auto (Unsp spec) [#/Vol] 1.20 10*3/uL 0.83-4.51 [facility] Work Phone: Basophil percentageOrdered B y: Dr. Ramirez on 08-10-2022 Basophil percentage 0 SEEN /hpf 0-5 [facility] Bilirubin [Mass/Vol] 0.50 mg/dL 0.20-1.00 [facility] Comment on above: For patients on eltr ombopag therapy, use of Dimension [place] TBIL is not recommended. Lactate [Moles/Vol] 0.9 mmol/L 0.4-2.0 [facility] Protein [Mass/Vol] 6.5 g/dL 6.4-8.2 [facility] Basophil percentageon 2021 Basophils/100 WBC (Bld) 0.3 % 0-1 [facility] Work Phone: Chloride [Moles/Vol] 105 mmol/L 98-107 [facility] Work Phone: Eosinophils/100 WBC (Bld) 0.0 % 0-5 [facility] Work Phone: Glucose [Mass/Vol] 147 mg/dL 74-106 [facility] Work Phone: Comment on above: Fasting Glucose resu lt greater than or equal to 126 mg/dL suggests DIABETES MELLITUS per A.D.A. criteria. Neutrophils (Bld) [#/Vol] 5.7 10*3/uL 2.0-7.7 [facility] Work Phone: Neutrophils/100 WBC (Bld) 75.9 % 47-70 [facility] Work Phone: Potassium [Moles/Vol] 3.6 mmol/L 3.5-5.1 [facility] Work Phone: Sodium [Moles/Vol] 138 mmol/L 136-145 [facility] Work Phone: WBC (Bld) [#/Vol] 7.5 10*3/uL 4.4-11.0 [facility] Work Phone: Bilirubin Test strip Ql (U)O rdered By: Dr. Ramirez on 08-10-2022 Bilirubin Ql (U) Negative Negative [facility] Blood erythrocytes count (nu mber/volume)on 08-10-2022 RBC (Bld) [#/Vol] 4.69 10*6/uL 4.2-5.4 [facility] Work Phone: Blood hemoglobin measurement (mass/volume)on 08-10-2022 Hemoglobin (Bld) [Mass/Vol] 13.5 g/dL 12.0-15.0 [facility] Work Phone: Blood lymphocytes/100 leukoc yteson 08-10-2022 Lymphocytes/100 WBC (Bld) 16.0 % 19-41 [facility] Work Phone: Blood monocytes/100 leukocyt eson 08-10-2022 Monocytes/100 WBC (Bld) 6.9 % 0-10 [facility] Work Phone: Blood platelet mean volumeon 08-10-2022 Platelet mean volume (Bld) [Entitic vol] 10.4 fL 6.2-12.0 [facility] Work Phone: Determination of erythrocyte mean corpuscular volume (MCV)on 08-10-2022 MCV (RBC) [Entitic vol] 89.1 fL 81-99 [facility] Work Phone: Hematocrit Auto (Bld) [Volum e fraction]on 08-10-2022 Hematocrit (Bld) [Volume fraction] 41.8 % 37-47 [facility] Work Phone: INR in Blood by Coagulation assayOrdered By: Dr. Ramirez on 08-10-2022 INR Coag (Bld) [Relative time] 1.2 {INR} [facility] Influenza virus A and B and SARS-CoV-2 (COVID-19) Ag panel - Upper respiratory specimOrdered By: Dr. Ramirez on 08-10-2022 SARS-CoV-2 & FLU Antigen (Rapid) Influenzae A [facility] Ketones Test strip Ql (U)Ord ered By: Dr. Ramirez on 08-10-2022 Ketones Ql (U) 5 mg/dl Negative [facility] Laboratory - Chemistry and C hemistry - challengeOrdered By: Dr. Ramirez on 08-10-2022 ALP [Catalytic activity/Vol] 114 U/L 45-117 [facility] ALT [Catalytic activity/Vol] 18 U/L 13-56 [facility] Globulin (S) [Mass/Vol] 3.0 g/dL 2.2-4.2 [facility] Laboratory - Chemistry and C hemistry - challengeon 08-10-2022 CO2 [Moles/Vol] 24.0 mmol/L 21.0-32.0 [facility] Work Phone: Urea nitrogen/Creatinine [Mass ratio] 9.6 mg/mg 10-20 [facility] Work Phone: Laboratory - CoagulationOrde red By: Dr. Ramirez on 08-10-2022 aPTT Coag (Bld) [Time] 31.1 s 24.1-36.2 [facility] PT Coag (PPP) [Time] 14.4 s 11.7-14.9 [facility] Laboratory - Hematology and Cell countson 08-10-2022 Erythrocyte distribution width (RBC) [Entitic vol] 45.9 fL 35.1-43.9 [facility] Work Phone: Erythrocyte distribution width (RBC) [Ratio] 14.3 % 11.6-14.6 [facility] Work Phone: Immature granulocytes/100 WBC (Bld) 0.900 % 0.0-0.9 [facility] Work Phone: Comment on above: IG% - Immature Granu locytes (promyelocytes, myelocytes and metamyelocytes) > 1% indicates that a LEFT SHIFT is Present. MCH (RBC) [Entitic mass] 28.8 pg 27.0-32.0 [facility] Work Phone: Nucleated RBC/100 WBC (Bld) [Ratio] 0 % 0-5 [facility] Work Phone: MCHC Auto (RBC) [Mass/Vol]on 08-10-2022 MCHC (RBC) [Mass/Vol] 32.3 g/dL 32-36 [facility] Work Phone: Mucus LM Ql (Urine sed)Order ed By: Dr. Ramirez on 08-10-2022 Mucus Ql (Urine sed) 0 SEEN /hpf [facility] Nitrite Test strip Ql (U)Ord ered By: Dr. Ramirez on 08-10-2022 Nitrite Ql (U) Negative Negative [facility] No Panel Informationon 08-10 Estimated Creatinine Clearance Calc 35.80 ml/min [facility] Work Phone: Estimated GFR (MDRD) Amer 60 mL/min >60 [facility] Work Phone: Comment on above: GFR Calc Estimated GFR (MDRD) Non-Af Amer 50 mL/min >60 [facility] Work Phone: Comment on above: Non- GFR Calc Platelets bldon 08-10-2022 Platelets (Bld) [#/Vol] 205 10*3/uL 150-450 [facility] Work Phone: Protein Test strip Ql (U)Ord ered By: Dr. Ramirez on 08-10-2022 Protein Ql (U) 15 mg/dl Negative [facility] Serum or plasma albumin lonnie urement (mass/volume)Ordered By: Dr. Ramirez on 08-10-2022 Albumin [Mass/Vol] 3.5 g/dL 3.2-5.0 [facility] Serum or plasma albumin/glob ulin mass ratioOrdered By: Dr. Ramirez on 08-10-2022 Albumin/Globulin [Mass ratio] 1.2 {ratio} 0.9-2.4 [facility] Serum or plasma calcium lonnie urement (mass/volume)on 08-10-2022 Calcium [Mass/Vol] 8.4 mg/dL 8.5-10.1 [facility] Work Phone: Serum or plasma creatinine m easurement (mass/volume)on 08-10-2022 Creatinine [Mass/Vol] 1.14 mg/dL 0.55-1.02 [facility] Work Phone: Comment on above: The validity of the calculated GFR & GFRAA in patients over 70 years has not been determined. Clinical correlation is essential. Serum or plasma urea nitroge n measurement (mass/volume)on 08-10-2022 Urea nitrogen [Mass/Vol] 11 mg/dL 7-18 [facility] Work Phone: Squamous epithelial cells de tection in urine sediment by light microscopyOrdered By: Dr. Ramirez on 08-10-2022 Epithelial cells.squamous LM Ql (Urine sed) 0 SEEN /hpf 5-10 [facility] Thin prep Papanicolaou smear with manual screeningOrdered By: Dr. Ramirez on 08-10-2022 Thin prep Papanicolaou smear with manual screening 15 U/L 15-37 [facility] Thin prep Papanicolaou smear with manual screeningon 08-10-2022 Thin prep Papanicolaou smear with manual screening 9 5-15 [facility] Work Phone: Urine blood detectionOrdered By: Dr. Ramirez on 08-10-2022 RBC Ql (U) 150 /ul Negative [facility] RBC Ql (U) 5-10 SEEN /hpf 0-5 [facility] Urine clarityOrdered By: Dr. Ramirez on 08-10-2022 Clarity (U) Clear Clear [facility] Urine color determinationOrd ered By: Dr. Ramirez on 08-10-2022 Color (U) Yellow Yellow [facility] Urine glucose detectionOrder ed By: Dr. Ramirez on 08-10-2022 Glucose Ql (U) Normal mg/dl Normal [facility] Urine leukocyte esterase det ection by dipstickOrdered By: Dr. Ramirez on 08-10-2022 Leukocyte esterase Test strip Ql (U) Negative Negative [facility] Urine pHOrdered By: Dr. Abhijeet schmidt on 08-10-2022 pH (U) 6.5 [pH] 5.0 - 8.0 [facility] Urine sediment bacteria coun t by microscopy (number/high power field)Ordered By: Dr. Ramirez on 08-10-2022 Bacteria LM.HPF (Urine sed) [#/Area] RARE /hpf None Seen [facility] Urine specific gravity measu rementOrdered By: Dr. Ramirez on 08-10-2022 Specific gravity (U) [Rel density] 1.010 1.002-1.030 [facility] Urobilinogen Auto test strip Ql (U)Ordered By: Dr. Ramirez on 08-10-2022 Urobilinogen Ql (U) Normal mg/dl Normal [facility] No Panel Informationon 05-26 Endomysial IgA Antibody Negative Negative [facility] Work Phone: Serum IgA measurement (units /volume)on 05-26-2022 IgA Qn (S) 174 mg/dL 64-422 [facility] Work Phone: Comment on above: Performed at: [id number] [place], [place] [id number] Director: Tariq Hirsch PhD, Phone: [phone] Serum or plasma C reactive p rotein measurement (mass/volume)on 05-26-2022 CRP [Mass/Vol] 8.67 mg/L 0.0-3.0 [facility] Work Phone: Comment on above: C-Reactive Protein ( CRP) provides useful information for thediagnosis, therapy and monitoring of inflammatory processesand associated diseases. For the evaluation of Relative Riskfor Cardiovascular Disease, a High Sensitivity CRP (HSCRP)should be ordered. Serum tissue transglutaminas e IgA antibody assay (units/volume)on 05-26-2022 tTG IgA Qn (S) <2 U/mL 0-3 [facility] Work Phone: Comment on above: Negative 0 - 3 Weak Positive 4 - 10 Positive >10 Tissue Transglutaminase (tTG) has been identified as the endomysial antigen. Studies have demonstr- ated that endomysial IgA antibodies have over 99% specificity for gluten sensitive enteropathy. CBC With Auto Diff.on 2021 Basophils (Bld) [#/Vol] 0.03 10*3/uL Normal 0.00-0.30 [facility] Comment on above: Order Comment: Regul atory Requirements State: Only Absolute Cell Counts are reported with their reference ranges. Performed By: #### C BC #### [facility] (DEFAULT) [address] [place] [id number] Basophils/100 WBC (Bld) 0.5 % Normal [facility] Comment on above: Order Comment: Regul atory Requirements State: Only Absolute Cell Counts are reported with their reference ranges. Performed By: #### C BC #### [facility] (DEFAULT) [address] [place] [address] Eosinophils (Bld) [#/Vol] 0.16 10*3/uL Normal 0.00-0.5 0 [facility] Comment on above: Order Comment: Regul atory Requirements State: Only Absolute Cell Counts are reported with their reference ranges. Performed By: #### C BC #### [facility] (DEFAULT) [address] [place], [place] [address] Eosinophils/100 WBC (Bld) 2.9 % Normal [facility] Comment on above: Order Comment: Regul atory Requirements State: Only Absolute Cell Counts are reported with their reference ranges. Performed By: #### C BC #### [facility] (DEFAULT) [address] [place] [address] Erythrocyte distribution width (RBC) [Ratio] 16.4 % High 11.6-14.8 [facility] Comment on above: Order Comment: Regul atory Requirements State: Only Absolute Cell Counts are reported with their reference ranges. Performed By: #### C BC #### [facility] (DEFAULT) [address] [place] [address] Hematocrit (Bld) [Volume fraction] 41.9 % Normal 36.0-46.0 [facility] Comment on above: Order Comment: Regul atory Requirements State: Only Absolute Cell Counts are reported with their reference ranges. Performed By: #### C BC #### [facility] (DEFAULT) [address] [place] [address] Hemoglobin (Bld) [Mass/Vol] 13.6 g/dL Normal 12.0-16.0 [facility] Comment on above: Order Comment: Regul atory Requirements State: Only Absolute Cell Counts are reported with their reference ranges. Performed By: #### C BC #### [facility] (DEFAULT) [address] [place] [address] Ig% 1.6 % Normal 0.0-4.0 [facility] Comment on above: Order Comment: Regul atory Requirements State: Only Absolute Cell Counts are reported with their reference ranges. Performed By: #### C BC #### [facility] (DEFAULT) [address] [place] [address] Lymphocytes (Bld) [#/Vol] 1.33 10*3/uL Normal 0.90-4.0 0 [facility] Comment on above: Order Comment: Regul atory Requirements State: Only Absolute Cell Counts are reported with their reference ranges. Performed By: #### C BC #### [facility] (DEFAULT) [address] [place], [place] [address] Lymphocytes/100 WBC (Bld) 23.9 % Normal [facility] Comment on above: Order Comment: Regul atory Requirements State: Only Absolute Cell Counts are reported with their reference ranges. Performed By: #### C BC #### [facility] (DEFAULT) [address] [place], [place] [address] MCH (RBC) [Entitic mass] 29.4 pg Normal 26.0-34.0 [facility] Comment on above: Order Comment: Regul atory Requirements State: Only Absolute Cell Counts are reported with their reference ranges. Performed By: #### C BC #### [facility] (DEFAULT) [address] [place] [address] MCHC (RBC) [Mass/Vol] 32.5 g/dL Normal 31.0-37.0 [facility] Comment on above: Order Comment: Regul atory Requirements State: Only Absolute Cell Counts are reported with their reference ranges. Performed By: #### C BC #### [facility] (DEFAULT) [address] [place] [address] MCV (RBC) [Entitic vol] 91 fL Normal 80-100 [facility] Comment on above: Order Comment: Regul atory Requirements State: Only Absolute Cell Counts are reported with their reference ranges. Performed By: #### C BC #### [facility] (DEFAULT) [address] [place] [address] Monocytes (Bld) [#/Vol] 0.32 10*3/uL Normal 0.30-0.90 [facility] Comment on above: Order Comment: Regul atory Requirements State: Only Absolute Cell Counts are reported with their reference ranges. Performed By: #### C BC #### [facility] (DEFAULT) [address] [place] [address] Monocytes/100 WBC (Bld) 5.7 % Normal [facility] Comment on above: Order Comment: Regul atory Requirements State: Only Absolute Cell Counts are reported with their reference ranges. Performed By: #### C BC #### [facility] (DEFAULT) [address] [place], [place] [address] Neutrophils (Bld) [#/Vol] 3.64 10*3/uL Normal 1.70-7.0 0 [facility] Comment on above: Order Comment: Regul atory Requirements State: Only Absolute Cell Counts are reported with their reference ranges. Performed By: #### C BC #### [facility] (DEFAULT) [address] [place], [place] [address] Neutrophils/100 WBC (Bld) 65.4 % Normal [facility] Comment on above: Order Comment: Regul atory Requirements State: Only Absolute Cell Counts are reported with their reference ranges. Performed By: #### C BC #### [facility] (DEFAULT) [address] [place], [place] [address] Platelet mean volume (Bld) [Entitic vol] 9.2 fL Normal 9.0-15.5 [facility] Comment on above: Order Comment: Regul atory Requirements State: Only Absolute Cell Counts are reported with their reference ranges. Performed By: #### C BC #### [facility] (DEFAULT) [address] [place], [place] [address] Platelets (Bld) [#/Vol] 383 10*3/uL Normal 150-400 [facility] Comment on above: Order Comment: Regul atory Requirements State: Only Absolute Cell Counts are reported with their reference ranges. Performed By: #### C BC #### [facility] (DEFAULT) [address] [place], [place] [address] RBC (Bld) [#/Vol] 4.63 10*6/uL Normal 4.00-5.20 [facility] Comment on above: Order Comment: Regul atory Requirements State: Only Absolute Cell Counts are reported with their reference ranges. Performed By: #### C BC #### [facility] (DEFAULT) [address] [place] [address] WBC (Bld) [#/Vol] 5.57 10*3/uL Normal 4.50-11.00 [facility] Comment on above: Order Comment: Regul atory Requirements State: Only Absolute Cell Counts are reported with their reference ranges. Performed By: #### C BC #### [facility] (DEFAULT) [address] [place] [address] Comprehensive Metabolic Pane luis 09-20-2021 Albumin [Mass/Vol] 2.9 g/dL Low 3.2-4.5 [facility] Comment on above: Performed By: #### C MP #### [facility] (DEFAULT) [address] [place] [address] ALP [Catalytic activity/Vol] 92 U/L Normal 40-150 [facility] Comment on above: Performed By: #### C MP #### [facility] (DEFAULT) [address] [place] [address] ALT [Catalytic activity/Vol] 25 U/L Normal 14-65 [facility] Comment on above: Performed By: #### C MP #### [facility] (DEFAULT) [address] [place] [address] Anion gap [Moles/Vol] 10 mmol/L Normal 10-20 [facility] Comment on above: Performed By: #### C MP #### [facility] (DEFAULT) [address] [place] [address] AST [Catalytic activity/Vol] 16 U/L Normal 0-45 [facility] Comment on above: Performed By: #### C MP #### [facility] (DEFAULT) [address] [place] [address] Bilirubin [Mass/Vol] 0.7 mg/dL Normal 0.0-1.3 [facility] Comment on above: Performed By: #### C MP #### [facility] (DEFAULT) [address] [place] [address] Calcium [Mass/Vol] 8.1 mg/dL Normal 8.0-10.2 [facility] Comment on above: Performed By: #### C MP #### [facility] (DEFAULT) [address] [place] [address] Chloride [Moles/Vol] 108 mmol/L Normal 98-108 [facility] Comment on above: Performed By: #### C MP #### [facility] (DEFAULT) [address] [place], [place] [address] CO2 [Moles/Vol] 24.0 mmol/L Normal 21.0-32.0 [facility] Comment on above: Performed By: #### C MP #### [facility] (DEFAULT) [address] [place], [place] [address] Creatinine [Mass/Vol] 1.0 mg/dL Normal 0.6-1.2 [facility] Comment on above: Performed By: #### C MP #### [facility] (DEFAULT) [address] [place], [place] [address]on [place], [place] [address] GFR/1.73 sq M.predicted MDRD (S/P/Bld) [Vol rate/Area] 53 mL/min/{1.73_m2} Low 60-1000 [facility] Comment on above: Result Comment: The eGFR should be used for monitoring renal function only and not for medication dosing. Performed By: #### C MP #### [facility] (DEFAULT) [address] [place], [place] [address]maryann [place], [place] [address] Glucose [Mass/Vol] 123 mg/dL High 65-99 [facility] Comment on above: Performed By: #### C MP #### [facility] (DEFAULT) [address] [place], [place] [address] Potassium [Moles/Vol] 3.7 mmol/L Normal 3.5-5.1 [facility] Comment on above: Performed By: #### C MP #### [facility] (DEFAULT) [address] [place], [place] [address]maryann Zimmer [place], [place] [address] Protein [Mass/Vol] 6.6 g/dL Normal 6.0-8.0 [facility] Comment on above: Performed By: #### C MP #### [facility] (DEFAULT) [address] [place], [place] [address]maryann [place], [place] [address] Sodium [Moles/Vol] 138 mmol/L Normal 135-145 [facility] Comment on above: Performed By: #### C MP #### [facility] (DEFAULT) [address] [place], [place] [address] Urea nitrogen [Mass/Vol] 18 mg/dL Normal 8-25 [facility] Comment on above: Performed By: #### C MP #### [facility] (DEFAULT) [address] 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 Patient stated that she tested positive for Covid less than 4 weeks ago. She reported that she felt better initially but recently as of today at 3 AM she started having nausea vomiting. Small amount of diarrhea. Chills but no fever. She has a granddaughter who was positive for strep throat. Decreased appetite today. Nausea with vomiting at 3 AM this morning and then one additional episode today. She is slightly lightheaded and dizzy. No chest pain no shortness of breath no numbness or tingling no weakness. She states she came to the emergency room to get IV fluids, something for nausea, and tested for strep throat. No rash no skin recent travel. Whole household had cold that lasted for weeks ago. The abdominal pain started after nausea vomiting and diarrhea. She had that similar when she had Covid initially 4 weeks ago. Timing: Today Duration: Constant Context: Other - POSITIVE COVID LESS THAT 30 DAYS AUGUST 2021 Associated Symptoms: Fever/Chills, Nausea, Vomiting, Diarrhea, Loss of Appetite Modifying Factors: Upright Position, Movements, Food Past Medical History Previous Medical History: Yes Medical History: Asthma Past Surgical History: Yes Past Surgical History: Appendectomy, Hernia Repair, Hysterectomy Additional Surgical Information: exploratory lap Allergies doxycycline [From Vibramycin] Allergy (Verified 09/19/21 23:06) Unknown Penicillins Allergy (Verified 09/19/21 23:05) Unknown Sulfa (Sulfonamide Antibiotics) Allergy (Verified 09/19/21 23:06) Unknown Home Medications Multivitamin 1 each PO DAILY 09/19/21 Ondansetron Odt [Zofran Odt] 4 mg PO Q4H PRN #15 tab.rapdis 09/20/21 - Psychosocial History Feels Threatened In Home Enviroment: No Feels Threatened In a Relationship: No Fall Risk: No - Vaccination History Immunizations Up to Date: Yes - stated Review Of Systems All Other Systems: Other Constitutional: Reports: Malaise EENT: Reports: No Symptoms Reported Respiratory: Reports: No Symptoms Reported Cardiac (ROS): Reports: No Symptoms Reported ABD/GI: Reports: Abdominal Pain, Reports: Nausea, Reports: Vomiting : Reports: No Symptoms Reported Musculoskeletal: Reports: No Symptoms Reported Skin: Reports: No Symptoms Reported Neurological/Psych: Reports: No Symptoms Reported Hematologic/Lymphati c: Reports: No Symptoms Reported Physical Exam General Appearance: No Acute Distress, Alert Eyes Bilateral: Normal Inspection, PERRL ENT: ENT Inspection Normal, Pharynx Normal, No Signs of Dehydration Neck: Normal Inspection Respiratory: Chest Non-Tender, No Respiratory Distress, Breath Sounds Normal Cardiovascular: Regular Rate Rhythm, No Murmur, No Gallop Abdomen: No Organomegaly, Normal Bowel Sounds, No Abdominal Bruit, No Pulsatile Mass, Tenderness - MIDEPIGASTRIC Skin: Color Normal, No Rash, Warm, Dry Extremities: Full ROM, Normal Appearance Neurologic/Psychiatr ic: Oriented x3, Motor Normal, Mood/Affect Normal Results - Lab Results Laboratory Tests 09/19/21 09/19/21 09/19/21 23:27 23:27 23:40 WBC 5.57 RBC 4.63 Hgb 13.6 Hct 41.9 MCV 91 MCH 29.4 MCHC 32.5 RDW 16.4 H Plt Count 383 MPV 9.2 Immature Gran % (Auto) 1.6 Neutrophils % 65.4 Lymphocytes % 23.9 Monocytes % 5.7 Eosinophils % 2.9 Basophils % 0.5 Neutrophils # 3.64 Lymphocytes # 1.33 Monocytes # 0.32 Basophils # 0.03 Eosinophilia # 0.16 Sodium 138 Potassium 3.7 Chloride 108 Carbon Dioxide 24.0 Anion Gap 10 BUN 18 Creatinine 1.0 Estimated GFR 53 L Glucose 123 H Calcium 8.1 Total Bilirubin 0.7 AST 16 ALT 25 Alkaline Phosphatase 92 Total Protein 6.6 Albumin 2.9 L Specimen Type Clean catch Urine Color Yellow Urine Clarity Clear Urine pH 6.5 Ur Specific [place] 1.025 Urine Protein Negative Urine Ketones Trace H Urine Blood Trace H Urine Nitrite Negative Urine Bilirubin Small H Urine Urobilinogen 2.0 Ur Leukocyte Esterase Negative Urine RBC Urine Bacteria Urine Mucus Urine Glucose Negative Group A Strep Rapid 09/19/21 09/19/21 23:40 23:40 WBC RBC Hgb Hct MCV MCH MCHC RDW Plt Count MPV Immature Gran % (Auto) Neutrophils % Lymphocytes % Monocytes % Eosinophils % Basophils % Neutrophils # Lymphocytes # Monocytes # Basophils # Eosinophilia # So (more content not included)... Normal [facility] Rapid Strep Screenon 022 S. pyogenes Ag IA Ql (Unsp spec) Negative Normal [facility] Comment on above: Performed By: #### S TSC #### [facility] (DEFAULT) [address] [place] [phone] Urinalysison 09-20-2021 Bilirubin Ql (U) Small Abnormal Negative [facility] Comment on above: Performed By: #### U A #### [facility] (DEFAULT) [address] [place] [address] Clarity (U) Clear Normal [facility] Comment on above: Performed By: #### U A #### [facility] (DEFAULT) [address] [place] [phone] Color (U) Yellow Normal [facility] Comment on above: Performed By: #### U A #### [facility] (DEFAULT) [address] [place] [phone] Glucose Ql (U) Negative Normal [facility] Comment on above: Performed By: #### U A #### [facility] (DEFAULT) [address] [place] [address] Hemoglobin Ql (U) Trace Abnormal Negative [facility] Comment on above: Performed By: #### U A #### [facility] (DEFAULT) [address] [place], [place] [address] Ketones Ql (U) Trace Abnormal Negative [facility] Comment on above: Performed By: #### U A #### [facility] (DEFAULT) [address] [place], [place] [address] Leukocytes Negative Normal Negative [facility] Comment on above: Performed By: #### U A #### [facility] (DEFAULT) [address] [place], [place] [address] Nitrite Ql (U) Negative Normal Negative [facility] Comment on above: Performed By: #### U A #### [facility] (DEFAULT) [address] [place] [phone] Protein Ql (U) Negative Normal Negative [facility] Comment on above: Performed By: #### U A #### [facility] (DEFAULT) [address] [place] [phone] Specific gravity (U) [Rel density] 1.025 Normal 1.005-1.025 [facility] Comment on above: Performed By: #### U A #### [facility] (DEFAULT) [address] [place] [address] UpH 6.5 Normal 5.0-6.5 [facility] Comment on above: Performed By: #### U A #### [facility] (DEFAULT) [address] [place] [address] Urine Specimen Type Clean Catch Normal [facility] Comment on above: Performed By: #### U A #### [facility] (DEFAULT) [address] [place] [address] Urobilinogen (U) [Mass/Vol] 2.0 mg/dL Normal <2.0 [facility] Comment on above: Performed By: #### U A #### [facility] (DEFAULT) [address] [place] [address] Urine Cultureon 09-20-2021 Bacteria identified Cx Nom (U) URINE CULTURE: COAGULASE NEGATIVE STAPHYLOCOCCUS A Testi g Performed At: [facility] [address] [place] [address] >100, 00 CFU/mL Coagulase Negative Staphylococcus URINE CULTURE: < 10 000 CFU/mL of normal urogenital microbiota Testi g Performed At: [facility] [address] [place] [address] Normal [facility] Comment on above: Performed By: #### C MCKENZIE #### [facility] (DEFAULT) [address] [place] [phone] Urine Microscopicon 09-20-19 22 Mucus Ql (Urine sed) Small Abnormal None [facility] Comment on above: Performed By: #### M IC #### [facility] (DEFAULT) [address] [place] [address] UBacteria Rare Abnormal None [facility] Comment on above: Performed By: #### M IC #### [facility] (DEFAULT) [address] [place] [phone] URBC 0-2 Abnormal None;0-3 [facility] Comment on above: Performed By: #### M IC #### [facility] (DEFAULT) [address] [place] [phone] Absolute lymphocyte counton 09-19-2021 Lymphocytes Auto (Unsp spec) [#/Vol] 1.33 10*3/uL 0.90-4.00 [facility] Work Phone: Bacteria detection in urine sediment by light microscopyon 09-19-2021 Bacteria LM Ql (Urine sed) Rare /hpf None [facility] Work Phone: Blood hemoglobin measurement (mass/volume)on 09-19-2021 Hemoglobin (Bld) [Mass/Vol] 13.6 g/dL 12.0-16.0 [facility] Work Phone: Body fluid alanine aminotran sferase measurement (enzymatic activity/volume)on 09-19-2021 ALT (Body fld) [Catalytic activity/Vol] 25 U/L 14-65 [facility] Work Phone: Calcium measurement (mass/vo lume)on 09-19-2021 Calcium (Unsp spec) [Mass/Vol] 8.1 mg/dL 8.0-10.2 [facility] Work Phone: Erythrocyte distribution wid th ratioon 09-19-2021 Erythrocyte distribution width (RBC) [Ratio] 16.4 % 11.6-14.8 [facility] Work Phone: Erythrocyte mean corpuscular hemoglobin concentration measurement (mass/volume)on 09-19-2021 MCHC (RBC) [Mass/Vol] 32.5 g/dL 31.0-37.0 [facility] Work Phone: HBV + HCV screenon 2 S. pyogenes Ag IA Ql (Unsp spec) Negative Negative [facility] Work Phone: MCH (RBC) [Entitic mass] 29.4 pg 26.0-34.0 [facility] Work Phone: MCV (RBC) [Entitic vol] 91 fL 80-100 M [facility] Work Phone: Laboratory - Chemistry and C hemistry - challengeon 09-19-2021 Ketones Ql (U) Trace Negative [facility] Work Phone: ALP [Catalytic activity/Vol] 92 U/L 40-150 [facility] Work Phone: Anion gap [Moles/Vol] 10 mmol/L 10-20 [facility] Work Phone: CO2 [Moles/Vol] 24.0 mmol/L 21.0-32.0 [facility] Work Phone: GFR/1.73 sq M.predicted among non-blacks MDRD (S/P/Bld) [Vol rate/Area] 53 mL/min/{1.73_m2} 60-1000 Mo [facility] Work Phone: Comment on above: Result Units: mL/min /[id number] eGFR should be used for monitoring renal function only and not for medication dosing. Laboratory - Hematology and Cell countson 09-19-2021 Basophils (Bld) [#/Vol] 0.03 10*3/uL 0.00-0.30 [facility] Work Phone: Hematocrit (Bld) [Volume fraction] 41.9 % 36.0-46.0 [facility] Work Phone: Immature granulocytes/100 WBC (Bld) 1.6 % 0.0-4.0 [facility] Work Phone: RBC (Bld) [#/Vol] 4.63 10*6/uL 4.00-5.20 [facility] Work Phone: Laboratory - Specimen inform ationon 09-19-2021 Specimen type Nom (Spec) Clean catch [facility] Work Phone: Laboratory - Urinalysison Mucus Ql (Urine sed) Small /hpf None [facility] Work Phone: Leukocytes detection in urin e sediment by light microscopyon 09-19-2021 WBC LM Ql (Urine sed) Negative Negative [facility] Work Phone: Neutrophils Auto (Bld) [#/Vo l]on 09-19-2021 Neutrophils (Bld) [#/Vol] 3.64 10*3/uL 1.70-7.0 0 [facility] Work Phone: Platelet mean volume Auto (B ld) [Entitic vol]on 09-19-2021 Platelet mean volume (Bld) [Entitic vol] 9.2 fL 9.0-15.5 [facility] Work Phone: Platelets Auto (Bld) [#/Vol] on 09-19-2021 Platelets (Bld) [#/Vol] 383 10*3/uL 150-400 [facility] Work Phone: RBC LM Ql (Urine sed)on RBC Ql (U) 0-2 /hpf None;0-3 [facility] Work Phone: Serum or plasma albumin lonnie urement (mass/volume)on 09-19-2021 Albumin [Mass/Vol] 2.9 g/dL 3.2-4.5 [facility] Work Phone: Serum or plasma urea nitroge n measurement (mass/volume)on 09-19-2021 Urea nitrogen [Mass/Vol] 18 mg/dL 8-25 [facility] Work Phone: Trichomonas screenon 022 AST [Catalytic activity/Vol] 16 U/L 0-45 [facility] Work Phone: Basophils/100 WBC (Bld) 0.5 % [facility] Work Phone: Bilirubin [Mass/Vol] 0.7 mg/dL 0.0-1.3 [facility] Work Phone: Chloride [Moles/Vol] 108 mmol/L 98-108 [facility] Work Phone: Creatinine [Mass/Vol] 1.0 mg/dL 0.6-1.2 [facility] Work Phone: Eosinophils (Bld) [#/Vol] 0.16 10*3/uL 0.00-0.5 0 [facility] Work Phone: Eosinophils/100 WBC (Bld) 2.9 % [facility] Work Phone: Glucose [Mass/Vol] 123 mg/dL 65-99 [facility] Work Phone: Lymphocytes/100 WBC (Bld) 23.9 % [facility] Work Phone: Monocytes (Bld) [#/Vol] 0.32 10*3/uL 0.30-0.90 [facility] Work Phone: Monocytes/100 WBC (Bld) 5.7 % [facility] Work Phone: Neutrophils/100 WBC (Bld) 65.4 % [facility] Work Phone: Potassium [Moles/Vol] 3.7 mmol/L 3.5-5.1 [facility] Work Phone: Protein [Mass/Vol] 6.6 g/dL 6.0-8.0 [facility] Work Phone: Sodium [Moles/Vol] 138 mmol/L 135-145 [facility] Work Phone: WBC (Bld) [#/Vol] 5.57 10*3/uL 4.50-11.00 [facility] Work Phone: Urine bilirubin detectionon 09-19-2021 Bilirubin Ql (U) Small Negative [facility] Work Phone: Urine blood detectionon RBC Ql (U) Trace Negative [facility] Work Phone: Urine clarityon 09-19-2021 Clarity (U) Clear Clear [facility] Work Phone: Urine coloron 09-19-2021 Color (U) Yellow [facility] Work Phone: Urine glucose detectionon Glucose Ql (U) Negative Negative [facility] Work Phone: Urine nitrite detectionon Nitrite Ql (U) Negative Negative [facility] Work Phone: Urine pHon 09-19-2021 pH (U) 6.5 [pH] 5.0-6.5 [facility] Work Phone: Urine protein detectionon Protein Ql (U) Negative Negative [facility] Work Phone: Urine specific gravity measu rementon 09-19-2021 Specific gravity (U) [Rel density] 1.025 1.005-1.025 [facility] Work Phone: Urine urobilinogen detection on 09-19-2021 Urobilinogen Ql (U) 2.0 <2.0 [facility] Work Phone: Culture, urine Bacteria identified Cx Nom (U) Mixed Gram Pos & Gram Neg Org [facility] Work Phone: Influenza virus A and B and SARS-CoV-2 (COVID-19) Ag panel - Upper respiratory specim SARS-CoV-2 & FLU Antigen (Rapid) Influenzae A [facility] Work Phone: Vital Signs Date Time Vital Sign Value Performing Clinician Faci lity 08-12-2022 09:16-0500 SaO2% (BldA) [Mass fraction] 96 % Dr. Ramin Amaya Work Phone: [facility] 08-12-2022 09:08-0500 Body temperature 99.5 [degF] Dr. Ramin Amaya Work Phone: [facility] 08-12-2022 09:08-0500 Diastolic blood pressure 66 mm[Hg] Dr. Ramin Amaya Work Phone: [facility] 08-12-2022 09:08-0500 Heart rate 77 /min Dr. Ramin Amaya Work Phone: [facility] 08-12-2022 09:08-0500 Respiratory rate 18 /min Dr. Ramin Amaya Work Phone: [facility] 08-12-2022 09:08-0500 Systolic blood pressure 139 mm[Hg] Dr. Ramin Amaya Work Phone: [facility] 08-11-2022 01:19-0500 Body height 157.[address] Ramin Amaya Work Phone: [facility] 08-11-2022 01:19-0500 Body mass index (BMI) [Ratio] 36.5 kg/m2 Dr. Ramin Amaya Work Phone: [facility] 08-11-2022 01:19-0500 Body weight 90.[address] Ramin Amaya Work Phone: [facility] 08-11-2022 00:00-0500 Body temperature 98.8 [degF] [facility] Work Phone: 08-11-2022 00:00-0500 Diastolic blood pressure 72 mm[Hg] [facility] Work Phone: 08-11-2022 00:00-0500 Heart rate 80 /min [facility] Work Phone: 08-11-2022 00:00-0500 Respiratory rate 17 /min [facility] Work Phone: 08-11-2022 00:00-0500 SaO2% (BldA) [Mass fraction] 94 % [facility] Work Phone: 08-11-2022 00:00-0500 Systolic blood pressure 134 mm[Hg] [facility] Work Phone: 08-10-2022 20:21-0500 Body height 157.48 cm [facility] Work Phone: 08-10-2022 20:21-0500 Body mass index (BMI) [Ratio] 37.8 kg/m2 [facility] Work Phone: 08-10-2022 20:21-0500 Body weight 93.7 kg [facility] Work Phone: 09-20-2021 00:30-0500 Diastolic blood pressure 74 mm[Hg] MD DORINDA DEL REAL Work Phone: [facility] Work Phone: 09-20-2021 00:30-0500 Heart rate 86 /min MD DORINDA DEL REAL Work Phone: [facility] Work Phone: 09-20-2021 00:30-0500 Respiratory rate 16 /min MD DORINDA DEL REAL Work Phone: [facility] Work Phone: 09-20-2021 00:30-0500 SaO2% (BldA) [Mass fraction] 94 % MD DORINDA DEL REAL Work Phone: [facility] Work Phone: 09-20-2021 00:30-0500 Systolic blood pressure 124 mm[Hg] MD DORINDA DEL REAL Work Phone: [facility] Work Phone: 09-19-2021 23:19-0500 Body temperature 100 [degF] MD DORINDA DEL REAL Work Phone: [facility] Work Phone: 09-19-2021 23:01-0500 Body height 157.48 cm MD DORINDA DEL REAL Work Phone: [facility] Work Phone: 09-19-2021 23:01-0500 Body weight 84.36 kg MD DORINDA DEL REAL Work Phone: [facility] Work Phone: Encounters Encounter Date Encounter Type Care Provider Facility Start: 04-15-2025 ambulatory [facility] Facility:[facility] Start: 03-26-2025 End: 03-26-[address] Ramin Amaya MD Work Phone: -MRI - [facility] Start: 03-26-2025 End: 03-26-[address] Ramin Amaya MD -[facility] Work Phone: Start: 03-26-2025 End: 03-26-2025 ambulatory Ramin Chi Jose Luis Facility:[facility] Start: 03-13-2025 End: 03-13-[address] Ramin Amaya MD Work Phone: -Cat Scan [facility] Start: 03-13-2025 End: 03-13-[address] Ramin Amaya MD -Cat Scan [facility] Work Phone: Start: 03-13-2025 End: 03-13-2025 ambulatory Ramin Chi Jose Luis Facility:[facility] Start: 12-01-2024 ambulatory Ramin Chi Jose Luis Facility:[facility] Start: 10-17-2024 End: 10-17-2024 ambulatory [facility] Facility:[facility] Start: 05-28-2024 ambulatory Indira Craft [employer] Facili ty:[facility] Start: 05-25-2024 End: 05-25-2024 ambulatory [facility] Jose Luis Facility:[facility] Start: 05-25-2024 End: 05-25-2024 ambulatory Joseph Figueroa Facility:[facility] Start: 05-15-2024 End: 05-15-[facility] Start: 05-09-2024 End: 05-09-2024 ambulatory [facility] Facility:[facility] Start: 11-03-2023 End: 11-03-[address] [facility] Work Phone: Start: 11-03-2023 End: 11-03-[address] [facility]Out[facility] D[facility] Work Phone: Start: 10-06-2023 End: 10-06-[address] [facility] Work Phone: Start: 10-06-2023 End: 10-06-[address] [facility]Laboratory, Phy Office 3rd Flr Start: 05-25-2023 End: 05-25-[address] [facility] Work Phone: Start: 05-25-2023 End: 05-25-[address] [facility]Physical Therapy Work Phone: Start: 09-30-2022 End: 09-30-[address] Ramin Amaya Work Phone: [facility] Work Phone: Start: 09-30-2022 End: 09-30-[address] Ramin Amaya Work Phone: [facility]Laboratory, Phy Office 3rd Flr Start: 08-12-2022 Non-patient / Non-visit Dr. Teddy Amaya Work Phone: [facility] Start: 08-11-2022 Non-patient / Non-visit Dr. Teddy Amaya Work Phone: [facility] Start: 08-11-2022 End: 08-12-2022 Evaluation and management of inpatient [facility]Medical Surgical 3 Start: 05-26-2022 End: 05-26-[address] [facility] Work Phone: Start: 05-26-2022 End: 05-26-[address] [facility] Start: 09-20-2021 End: 09-20-2021 ambulatory DORINDA DEL REAL [facility] Start: 09-19-2021 End: 09-20-2021 Emergency department patient visit MD DORINDA DEL REAL Work Phone: [facility]EMERG[facility]Y DEPART[facility] Procedures Date Procedure Procedure Detail Performing Clinician Start: 03-26-2025 MRI of lumbar spine Dr. Ramin Amaya MD Work Phone: Start: 03-26-2025 MRI of thoracic spine Livier Amaya MD Work Phone: Start: 03-13-2025 X-ray of lumbosacral spine Dr. Ramin Amaya MD Work Phone: Start: 03-13-2025 X-ray of thoracic sp ine, three views Dr. Ramin Amaya MD Work Phone: Start: 03-13-2025 Computed tomography of abdomen and pelvis with contrast Dr. Ramin Amaya MD Work Phone: Start: 03-13-[address] Ramin au MD Work Phone: Start: 11-03-2023 Dual energy X-ray absorptiometry Start: 08-10-2022 Plain chest X-ray Bacteria identified in Blood by Culture Dr. Ramin Amaya Work Phone: SARS-CoV-2 & FLU Ant igen (Rapid) SARS-CoV-2 & FLU Ant igen (Rapid) Dr. Ramin Amaya Work Phone: Urine culture Dr. Ramin Amaya Work Phone: Urine culture Dr. Ramin Amaya Work Phone: Plan of Treatment Date Care Activity Detail Author Start: 08-12-2022 Patient discharge [facility] Start: 08-12-[address] [facility] Start: 08-12-[address] [facility] Start: 08-11-2022 Referral to service [facility] Start: 08-11-2022 Following clinical p athway protocol [facility] Start: 08-11-2022 Assessment of risk o f venous thromboembolism [facility] Start: 08-11-2022 Insertion of cathete r into peripheral vein [facility] Start: 08-11-[address] [facility] Start: 08-11-2022 Providing care accor ding to standard [facility] Start: 08-11-2022 Provision of activit y privileges [facility] Start: 08-11-2022 [facility] Start: 08-11-2022 Verification routine [facility] Work Phone: Start: 08-11-2022 Admission procedure [facility] Start: 08-10-2022 End: 08-10-2022 [facility] Work Phone: Start: 08-10-2022 End: 08-10-[address] [facility] Work Phone: Bacteria identified in Blood by Culture Blood Culture [facility] Work Phone: Bacteria identified in Urine by Culture [facility] Work Phone: Blood culture [facility] Work Phone: Patient Education [facility] Work Phone: Patient referral [facility] Work Phone: Payers Date Payer Category Payer Self-pay [id number] 2016 Private Health Insurance [id number] 2016 Medicare [id number] Unknown [id number] 2.16.8 [id number] Unknown [id number] 2.16.8 [id number] Unknown [id number] 2.16.8 [id number] Unknown [id number] 2.16.8 [id number] Unknown [id number] 2.16.8 [id number] Unknown [id number] 2.16.8 [id number] Unknown [id number] 2.16.8 [id number] Unknown [id number] 2.16.8 [id number] Unknown [id number] 2.16.8 [id number] Unknown [id number] 2.16.8 [id number] Unknown [id number] Social History Date Type Detail Facility [facility] Work Phone: Start: 1950 Sex Assigned At Female [facility] Start: 08-22-2021 End: 06-03-2023 Tobacco smoking status NHIS Unknown if ever smoked [facility] Start: 05-09-2024 [facility] (finding[facility] Goals Date Patient Goal Desired Activity /State Functional Status Date Assessment Result Facility 08-12-2022 Functional status Ambulates;[facility] Work Phone: Mental Status Date Assessment Result Facility 08-11-2022 Cognitive function Voice/Name [facility] Work Phone: 08-10-2022 Cognitive function Level Of Cons ciousness Awake;Alert;Appropriate;Follow s Commands [facility] Work Phone: Radiology Diagnostic study note 03-13-2025 Note Date & Type Note Facility 03-13-2025 Radiology Diagnostic study note [facility] Imaging Services [address] [place], [place] [id number] Abdomen/Pelvis WITH Contrast MR#: [id number] Acct: [id number] Name: JUAN FRANCISCO TANNER Rep #: [id number] : 1950 F 74 From: Dolly Ortiz MD PCP: Dr. Ramin Amaya MD Status: REG C SHIVA Study:Abdomen/Pelvis WITH Contrast Date of Ex am: 03/13/25 Exam# [id number] Ordering Dr: Ramin Amaya MD PROCEDURE: ABDOMEN/PELVIS WITH CONTRAST 03/13/2025 REASON FOR EXAM: DIVERTICULITIS OF LG INTESTINE W/O PERFORATION TECHNIQUE: ABDOMEN/PELVIS WITH IV and oral CONTRAST Coronal and Sagittal reconstruction series were provided. CONTRAST: Isovue-300 VOLUME: 97 mL One or more dose reduction techniques were used (e.g., Automated exposure control, adjustment of the mA and/or kV according to patient size, use of iterative reconstruction technique. RADIATION DOSE SUMMARY: CTDlvol: 23.3 mGy DLP: 1113 mGycm COMPARISON: CT abdomen and pelvis on 07/04/2018 FINDINGS: Lung bases: Unremarkable Liver: Mild intrahepatic biliary ductal dilatation, unchanged. Subcentimeter hypodensity in the right hepatic lobe, too small to characterize and unchanged. Gallbladder: Surgically absent. Spleen: Normal size. Pancreas: Normal size without evidence of mass surrounding inflammation or ductal dilation. Adrenals: Unremarkable Kidneys: No stone or hydronephrosis. Left renal pelvic cysts Bladder: Unremarkable Reproductive Organs: Prior hysterectomy. Adnexal regions are unremarkable. Bowel: No obstruction or inflammation. There is oral contrast in the small bowel and cecum. Colonic diverticulosis without wall thickening or pericolonic inflammatory stranding to suggest acute diverticulitis. Prominent colonic stool burden. Surgically absent appendix. Lymph nodes: Unremarkable. Vasculature: Mild diffuse atherosclerotic calcifications are noted. Bones: Degenerative changes of the spine. L5 pars defects with grade 1 anterolisthesis of L5 on S1. Soft tissues: There are calcifications and foci of subcutaneous emphysema throughout the gluteal soft tissues, unchanged and likely related to subcutaneous injections. CT/Abdomen/Pelvis WITH Contrast IMPRESSION: 1. No acute intra-abdominal abnormality. There is colonic diverticulosis without current evidence of acute diverticulitis. 2. Prominent colonic stool burden, correlate for clinical symptoms of constipation. Reading Location: [id number] CC: Dr. Ramin Amaya MD ~ Parking Enforcement Officer: Signed [facility] Radiology Diagnostic study note 03-13-2025 Note Date & Type Note Facility 03-13-2025 Radiology Diagnostic study note [facility] Imaging Services [address] [place] [address] Thoracic Spine 3 Views MR#: [id number] Acct: [id number] Name: JUAN FRANCISCO TANNER Rep #: [id number] : 1950 F 74 From: Cyndie Yañez MD PCP: Dr. Ramin Amaya MD Status: [facility] Study:Thoracic Spine 3 Views Date of Exam: 03/13/25 Exam# [id number] Ordering Dr: Ramin Amaya MD PROCEDURE: THORACIC SPINE 3 VIEWS 03/13/2025 REASON FOR EXAM: RACICULOPATHY TECHNIQUE: THORACIC SPINE 3 VIEWS COMPARISON: None FINDINGS: No acute thoracic spine fracture or subluxations. Alignment is grossly within normal limits. Mild multilevel degenerative changes of the thoracic spine. No focal consolidations. No pleural effusion or pneumothorax. Calcified aorticarch. Cardiac silhouette is within normal limits. RAD/Thoracic Spine 3 Views IMPRESSION: No acute thoracic spine fracture or subluxations. Consider CT/MR if there is continued concern for spinal pathology. Reading Location: [id number] CC: Dr. Ramin Amaya MD ~ Parking Enforcement Officer: Signed [facility] Radiology Diagnostic study note 03-13-2025 Note Date & Type Note Facility 03-13-2025 Radiology Diagnostic study note [facility] Imaging Services [address] [place] [address] L/S Spine Min 4 Views MR#: [id number] Acct: [id number] Name: JUAN FRANCISCO TANNER Rep #: [id number] : 1950 F 74 From: Allen Elaine MD PCP: Dr. Ramin Amaya MD Status: REG C LI Study:L/S Spine Min 4 Views Date of Exam: 03/13/25 Exam# [id number] Ordering Dr: Ramin Amaya MD PROCEDURE: L/S SPINE MIN 4 VIEWS 03/13/2025 REASON FOR EXAM: RADICULOPATHY TECHNIQUE: L/S SPINE MIN 4 VIEWS COMPARISON: None. FINDINGS: No evidence of acute fracture or dislocation. Grade 1, borderline 2 anterolisthesis of L5 on S1 with probable L5 bilateral pars defects. Djzbqwxw-yj-[id number] disc space narrowing at L5-S1. Mild degenerative changes of the other visualized levels. RAD/L/S Spine Min 4 Views IMPRESSION: Spondylosis. Grade 1, borderline to anterolisthesis of L5 on S1 with probable L5 pars defects. Reading Location: [id number] CC: Dr. Ramin Amaya MD ~ Parking Enforcement Officer: Signed [facility] Discharge summary 05-25-2023 Note Date & Type Note Facility 05-25-2023 Discharge summary Note Date/Time May 25, 2023 3:33pm [facility] Physical Therapy [facility] [address] [place] [address] [address] [place] [id number] / REHABILITATION SERVICES DISCHARGE SUMMARY MR#: [id number] Acct: [id number] Name: JUAN FRANCISCO TANNER Rep #: [id number] : 1950 73 From: Rojas Bernstein PT, ATC Referring Dr.: Dr. Ayan Crooks DO Status : REG RCR Insurance: MEDICARE PART A B [employer] Discharge Summary D/C summary: It has been my pleasure to treat JUAN FRANCISCO TANNER referred by Dr. Ayan Crooks DO, with the diagnosis of L peroneal tendonitis for a total of 19 visit(s). Discharge Date: Please see the following information for a summary of their discharge status. Subjective Subjective: I dont have pain unless I step on it wrong. Pain L ankle pain: Pain Intensity (Out of 10): 0 Overall Improvement % Improvement: 95 Objective Objective/Function: L ankle pain 0/10 L ankle DF ROM: 15 degrees L ankle MMT: DF= 40 #F; PF 46 #F; Ever 35 #F Pt is I with HEP Goals Goal 1:: Decrease L ankle pain x 50% to aid with sleep Goal Progress: Goal Met Goal 2:: Increase L ankle DF ROM x 7-10 degrees to aid with decreasing pain Goal Progress: Goal Met Goal 3:: Increase L ankle strength x 20 #F to aid with stair negotiation Goal Progress: Goal Met Goal 4:: I with HEP Goal Progress: Goal Met Plan Plan: Discharge to [facility] D/C Information d/c sentence: If there are questions or concerns regarding this patient's physical therapy, please feel free to call me at [phone]. Thank you for the referral of thispatient. Sincerely, Rojas Bernstein, PT, ATC Balance/Gait/Functional tests Balance/Special Test Scores Lower Extremity Functional Score: 60 Improvement % Improvement: 95 <Electronically signed by Rojas Bernstein PT, ATC> 05/25/23 1533 CC: Dr. Ayan Crooks DO; Dr. Ramin Amaya MD ~ [facility] Signed [facility] Work Phone: Hospital Discharge instructions 10-12-2021 Note Date & Type Note Facility 10-12-2021 Hospital Discharg e instructions Additional Instructions 1. Recommend to start with a clear liquid diet advance as tolerated. 2. Drink plenty of fluids. Avoid caffeine. 3. Call your family doctor on Tuesday morning to schedule an appointment next week. 4. Labs show no severe or gross abnormalities. And strep test was negative. For your information. 5. Return to the emergency room for lightheaded dizzy nausea vomiting abdominal pain coffee-ground emesis black tarry stools chest pain shortness of breath or concerns. 6. May take the Zofran that was provided from the ED in 4 to 6 hours if needed. [facility] Work Phone: Evaluation note Note Date & Type Note Facility Evaluation note No assessment information availa ble [facility] Work Phone: Evaluation note Note Date & Type Note Facility Evaluation note Diagnosis Onset Date Declining functional status acute Influenza A acute Weakness acute [facility] Work Phone: Evaluation note Note Date & Type Note Facility Evaluation note Diagnosis Onset Date Influenza A resolved [facility] Work Phone: Hospital Discharge instructions Note Date & Type Note Facility Hospital Discharge instructions Additional Instructions 1. Recommend to start with a clear liquid diet advance as tolerated. 2. Drink plenty of fluids. Avoid caffeine. 3. Call your family doctor on Tuesday morning to schedule an appointment next week. 4. Labs show no severe or gross abnormalities. And strep test was negative. For your information. 5. Return to the emergency room for lightheaded dizzy nausea vomiting abdominal pain coffee-ground emesis black tarry stools chest pain shortness of breath or concerns. 6. May take the Zofran that was provided from the ED in 4 to 6 hours if needed. [facility] Work Phone: Reason for referral (narrative) Note Date & Type Note Facility Reason for referral (narrative) No reason for referral information available [facility] Work Phone: Chief Complaint and Reason for Visit Chief Complaint VOIMTING YORDY IN [place] C Chief Complaint DIARRHEA Chief Complaint Diarrhea ACUTE INFLUENZA A BRONCHITIS Reason for Visit Declining functional status Influenza A Weakness Chief Complaint Diarrhea ACUTE INFLUENZA A BRONCHITIS ACUTE INFLUENZA A BRONCHITIS ACUTE INFLUENZA A BRONCHITIS Reason for Visit Declining functional status Influenza A Weakness Chief Complaint ACUTE INFLUENZA A BR ONCHITIS ACUTE INFLUENZA A BRONCHITIS ACUTE INFLUENZA A BRONCHITIS Reason for Visit Influenza A Chief Complaint LFT ANKLE PAIN LFT L EG TENDONITIS / RX HERE Chief Complaint AGE RELATED OSTEO W/ PATHOLOGICAL FRACTURE Chief Complaint Admit Date Diverticulitis of large intestine withou t perforat March 13, 2025 4:15pm Chief Complaint Admit Date Diverticulitis of large intestine withou t perforat March 13, 2025 4:15pm thoracic radiculopathy March 26, 2025 1 :06pm Advance Directives No Advanced Directives Records Found Advance Directive Response Recorded Date/ Time Living Will No September 19 11:07pm State DNR No September 19 11:07pm Advance Directive Response Recorded Date/ Time Living Will Yes August 22 021 7:43pm Power of Public Relations Representative Yes August 22, 2021 7:43pm Advance Directive Response Recorded Date/ Time Name of Medical Power of Public Relations Representative POA, daughter, Niru Herrera August 10, 2022 8:23pm Living Will Yes August 10, 022 8:23pm Power of Public Relations Representative Yes August 10, 2022 8:23pm Advance Directive Response Recorded Date/ Time Name of Medical Power of Public Relations Representative Niru Herrera August 11, 2022 1:20am Living Will Yes August 11 022 1:20am Power of Public Relations Representative Yes August 11, 2022 1:20am Advance Directive Response Recorded Date/ Time Living Will Yes August 11 2:20am Power of Public Relations Representative Yes August 11, 2022 2:20am Advance Directive Response Recorded Date/ Time Living Will Yes August 11 1:20am Power of Public Relations Representative Yes August 11, 2022 1:20am Summary Purpose Family History No Family History Records Found Relationship Condition Age at Onset Recorded Date/T sandy father Cerebrovascular accident (CVA) Unknown Diabetes mellitus Unknown Relationship Condition Age at Onset Recorded Date/T sandy father Cerebrovascular accident (CVA) Unknown Diabetes mellitus Unknown Coronary artery disease Unknown Myocardial infarction Unknown brother Diabetes mellitus Unknown grandmother Malignant neoplasm Unknown Additional Source Comments Goals (unrecognized section and content) Goals may be documented in a n alternate sectionGoals may be documented in an alternate sectionGoals may be documented in an alternate sectionGoals may be documented in an alternate sectionGoals may be documented in an alternate sectionGoals may be documented in an alternate sectionGoals may be documented in an alternate sectionGoals may be documented in an alternate sectionGoals may be documented in an alternate section INFORMATION SOURCE (unrecogn ized section and content) DATE CREATED AUTHOR 09/20/2021 [facility] DATE CREATED AUTHOR AUTHOR'S ORGANIZ ATION 10/21/2021 [facility] DATE CREATED AUTHOR AUTHOR'S ORGANIZ ATION 04/12/2025 [facility] Care Teams (unrecognized sec tion and content) Team Status: Active Member Role Status Dates Dr. Ramin Amaya MD Family Provider Active Dr. Ramin Amaya MD Primary Care Provider Active Team Status: Active Member Role Status Dates Dr. Ramin Amaya MD Primary Care Provider Active Dr. Claritza Ramirez MD Emergency Provider Active Dr. Ant Galindo MD Admit Provider, Attending Provider, Other Provider Active Team Status: Active Member Role Status Dates Dr. Ramin Amaya MD Primary Care Provider Active Dr. Claritza Ramirez MD Emergency Provider Active Dr. Ant Galindo MD Admit Provider, Other Provide r Active Dr. Tom Hastings MD Attending Provider, Other Provi cecilia Active Team Status: Inactive Member Role Status Dates Dr. Ramin Amaya MD Primary Care Provider Active Dr. Claritza Ramirez MD Emergency Provider Active Dr. Ant Galindo MD Admit Provider, Other Provide r Active Dr. Tom Hastings MD Attending Provider Active Team Status: Inactive Member Role Status Dates Dr. Ramin Amaya MD Primary Care Provider Active Ramin Amaya MD Attending Provider Active Team Status: Inactive Member Role Status Dates Dr. Ramin Amaya MD Primary Care Provider Active Dr. Ayan Crooks DO Attending Provider, Referrin g Provider Active Team Status: Inactive Member Role Status Dates Dr. Ramin Amaya MD Primary Care Provider, Attending Provider Active Team Status: Inactive Member Role Status Dates Dr. Ramin Amaya MD Primary Care Provi cecilia, Attending Provider, Referring Provider Active Team Status: Active Member Role/Relationship Status Dates Dr. Ramin Amaya MD Primary Care Provider Active Team Status: Inactive Member Role/Relationship Status Dates Dr. Ramin Amaya MD Primary Care Provider Active Start: March 13, 2025 End: March 13, 2025 Dr. Ramin Amaya MD Attending Provider Active Start: March 13, 2025 End: March 13, 2025 Dr. Ramin Amaya MD Referring Provider Active Start: March 13, 2025 End: March 13, 2025 Team Status: Inactive Member Role/Relationship Status Dates Dr. Ramin Amaya MD Primary Care Provider Active Start: March 26, 2025 End: March 26, 2025 Dr. Ramin Amaya MD Attending Provider Active Start: March 26, 2025 End: March 26, 2025 Dr. Ramin Amaya MD Referring Provider Active Start: March 26, 2025 End: March 26, 2025 FOR RECORDS PERTAINING TO PATIENTS WHO ARE OR HAVE BEEN ENROLLED IN A CHEMICAL DEPENDENCY/SUBSTANCEABUSE PROGRAM, SOME INFORMATION MAY BE OMITTED. This clinical summary was aggregated from multiple sources. Caution should be exercised in using it in the provision of clinical care. This summary normalizes information from multiple sources, and as a consequence, information in this document may materially change the coding, format and clinical context of patient data. In addition, data may be omitted in some cases. CLINICAL DECISIONS SHOULD BE BASED ON THE PRIMARY CLINICAL RECORDS. [facility]. provides no warranty or guarantee of the accuracy or completeness of information in this document.
[2025-04-16 19:26] LABS: Xtra Tube Kwok EXTRA TUBE
== END | disposition home or self-care (01) ==
LOC: POLAB3 11:25
PROVIDERS: PCP Family Medicine Geriatric Medicine; Visit Provider Family Medicine Geriatric Medicine
DX: E03.9 Hypothyroidism, unspecified (principal); I10 Essential (primary) hypertension; E55.9 Vitamin D deficiency, unspecified
CPT/HCPCS: 36415; 80053; 82306; 84443; 85025

== ENCOUNTER 2025-05-09 11:09 | Outpatient (RCR) | payer MEDICARE, OTHER, SELFPAY | END 2025-05-12 23:59 | LOC: NS 11:09 | PROVIDERS: PCP Family Medicine Geriatric Medicine; Referring Provider Family Medicine Geriatric Medicine; Visit Provider Family Medicine Geriatric Medicine | DX: Z71.3 Dietary counseling and surveillance (principal); E66.9 Obesity, unspecified; N18.31 Chronic kidney disease, stage 3a; Z68.37 Body mass index [BMI] 37.0-37.9, adult | CPT/HCPCS: 97802 ==

== ENCOUNTER 2025-06-13 15:00 | Outpatient (RCR) | payer MEDICARE, OTHER, SELFPAY ==
--- NOTE | 2025-04-15 13:58 | HP.PTEVAL_ITS ---
Patient's Visit Information Visit Information Visit Information: JUAN FRANCISCO TANNER is a 74 year old F referred to Physical Therapy by Dr. Ramin Amaya MD with a diagnosis of LOW BACK PAIN. Date of Evaluation: 04/15/25 Physical Therapist: Isrrael Johnston PT, Cert MDT, OCS Visit Plan Frequency: 2x /Week Duration: 4 Weeks Plan: PT INTERVENTIONS LUMBAR FLEXION ,DLS ,POSTURAL EX'S ACTIVITY MODIFICATION AND MODALITIES PRN Subjective Subjective: This 74 y/o female presents to physical therapy with back pain. Patient had lumbar /thoracic pain for ~ 1 month . Patient noticed painpainaat work lifting and reaching. Patient seen DR knapp injection for pain and gabapentin. MRI lumbar showed L5-S1: There is severe disc degeneration with almost complete loss of the intervertebral disc space. There is bilateral spondylolysis with 6 mm of anterolisthesis of L5 on S1. There is epidural lipomatosis. There is resultant central canal stenosis with the AP dimension of the spinal canal measuring 7 mm. There is moderate bilateral facet arthropathy with ligamentum. Thoracic There is a large disc protrusion noted at C5-6 with possible central canal stenosis, X-rays thoracic /lumbar DDD. Aggravating factors standing/walking/stair,bending and lifting. Alleviating factors rest and sitting . Bowel/bladder -. Coughing/sneezing -. Patient sleeping okay. No pain management . Did recommended possible spine consult. Denies paresthesia/tingling -. Patient has no treatment /injury. Patient did see Chiropractor 10 years ago. Patient condition affects QOL and function. VOACTION: [place] SOCIAL: Pain Bilateral Back: Pain Intensity (Out of 10): 5 Pain Intensity Range: 5, 8 and 10 Objective Objective: POSTURE: mild thoracic kyphosis PALPATION: L4-5 ,L5-S1 NEURO: denies paresthesia/tingling ,reflexes 2/3 ,L4-5,L5-S1 THORACIC ROM: flexion mod loss ,extension mod/severe ,rotation mod loss BUE: AROM LUMBAR ROM: flexion min/mod loss ,extension mod/severe ,side glides min loss MMT: quads/hams/hip 4/5 ,ankle 4/5 FLEXABILITY: hamstrings min tight Special Tests L/S Slump test left side: Negative L/S Slump test right side: Negative L/S Left Straight Leg Raise: Negative L/S Right Straight Leg Raise: Negative Balance/Special Test Scores Oswestry Low Back Score: 27 Goals Goal 1:: Patient to be I with HEP for back Goal Time Frame: 4-6 Weeks Goal 2:: Patient to improve lumbar ROM for function of recovery for ADLS Goal Time Frame: 4-6 Weeks Goal 3:: Patient to demonstrate 50% improvement with less pain and improved function Goal Time Frame: 4-6 Weeks Goal 4:: Patient to improve back oswestry score by 5 points to improve QOL Goal Time Frame: 4-6 Weeks Rehabilitation Potential Physical Therapy Diagnosis: This patient has lumbar pain with DDD /stenosis with pain worse with walking and standing ,and positioning thus benefit from skilled PTB Rehabilitation Potential: Good Anticipated Interventions Patient/Client Instruction: Educate patient on: Condition and Plan of Care For the Purpose of:: To decrease pain, To increase ROM, To improve muscle performance and motor function, To improve ability to perform ADL's, To increase tolerance to activity/condition/position, To improve performance and independence with ADL's, To improve ability of physical actions for home/community/work/leisure, To improve health of tissue, To decrease soft tissue restriction and To increase flexibility/ROM Therapeutic Exercise to Include: Strength training, Postural training, Flexibilty training and Dynamic Lumbar Stabilization For the Purpose of:: To decrease pain, To improve muscle performance and motor function, To improve ability to perform ADL's, To increase tolerance to activity/condition/position, To improve ability of physical actions for home/community/work/leisure, To improve health of tissue and To decrease soft tissue restriction TENS: Yes IF ES: Yes Thermo therapy (hot pack): Yes Ultrasound (thermal/non thermal): Yes For the Purpose of:: To decrease pain, To increase ROM, To improve nutrient delivery to tissue, To increase oxygenation perfusion, To improve health of tissue, To decrease soft tissue restriction and To increase flexibility/ROM Text: Thank you for the opportunity to evaluate your patient. For Medicare and Medicare HMO plans, please review the plan of care and approve it. It will need to be FAXED BACK to us at [phone] for Medicare purposes. For Medicare only, by signing this I certify the plan of care. Please let me know if there are questions or concerns regarding this plan of care. Physician Signature: Date:___
--- NOTE | 2025-05-16 09:23 | HP.PTREVAL_ITS ---
Re-Evaluation Intro: Dr. Ramin Amaya MD, It has been my pleasure to treat JUAN FRANCISCO TANNER over the last 8 visits for LOW BACK PAIN. Please see the progress note below for an update on the physical therapy plan of care! Subjective Subjective: Pain worse from bridge thus stopped Pain located left> right since tues then doing bridge made symptoms Aggravating factors walkining ,bending .lifting Objective Objective/Function: Patient will benefit from skilled PT due to pain with in Low back pain which worsen a couple days ago goals are appropriate POSTURE: mild thoracic kyphosis PALPATION: L4-5 ,L5-S1 NEURO: denies paresthesia/tingling ,reflexes 2/3 ,L4-5,L5-S1 THORACIC ROM: flexion mod loss ,extension mod/severe ,rotation mod loss BUE: AROM LUMBAR ROM: flexion min/mod loss ,extension mod/severe pain ,side glides min loss MMT: quads/hams/hip 4/5 ,ankle 4/5 FLEXABILITY: hamstrings min tight Plan Plan Plan: PT INTERVENTIONS LUMBAR FLEXION ,DLS ,POSTURAL EX'S ACTIVITY MODIFICATION AND MODALITIES PRN Balance/Gait/Functional tests Balance/Special Test Scores Oswestry Low Back Score: 25 Goals Goals Goal 1:: Patient to be I with HEP for back Goal Time Frame: 4-6 Weeks Goal Progress: Progressing Goal 2:: Patient to improve lumbar ROM for function of recovery for ADLS Goal Time Frame: 4-6 Weeks Goal Progress: Progressing Goal 3:: Patient to demonstrate 50% improvement with less pain and improved function Goal Time Frame: 4-6 Weeks Goal Progress: Progressing Goal 4:: Patient to improve back oswestry score by 5 points to improve QOL Goal Time Frame: 4-6 Weeks Goal Progress: Progressing Anticipated Interventions Anticipated Interventions Patient/Client Instruction: Educate patient on: Condition and Plan of Care For the Purpose of:: To decrease pain, To increase ROM, To improve muscle perfo rmance and motor function, To improve ability to perform ADL's, To increase tolerance to activity/condition/position, To improve performance and independence with ADL's, To improve ability of physical actions for home/community/work/leisure, To improve health of tissue, To decrease soft tissue restriction and To increase flexibility/ROM Therapeutic Exercise to Include: Strength training, Postural training, Flexibilty training and Dynamic Lumbar Stabilization For the Purpose of:: To decrease pain, To improve muscle performance and motor function, To improve ability to perform ADL's, To increase tolerance to activity/condition/position, To improve ability of physical actions for home/community/work/leisure, To improve health of tissue and To decrease soft tissue restriction TENS: Yes IF ES: Yes Thermo therapy (hot pack): Yes Ultrasound (thermal/non thermal): Yes For the Purpose of:: To decrease pain, To increase ROM, To improve nutrient delivery to tissue, To increase oxygenation perfusion, To improve health of tissue, To decrease soft tissue restriction and To increase flexibility/ROM Re-Evaluation Ending Re-evaluation ending: Please do not hesitate to contact me at [phone] by phone or if you have questions or concerns regarding this new plan of care! Sincerely, Isrrael Johnston, PT, Cert MDT, OCS
--- NOTE | 2025-06-13 15:41 | HP.PTDCSUM ---
Discharge Summary D/C summary: It has been my pleasure to treat JUAN FRANCISCO TANNER referred by Dr. Ramin Amaya MD, with the diagnosis of LOW BACK PAIN for a total of 14 visit(s). Discharge Date: 06/13/25 Please see the following information for a summary of their discharge status. Subjective Subjective: Still have pain ,occasional sharp pain Has stomach ,pain and HUYNH Pain Bilateral Back: Pain Intensity (Out of 10): 2 Overall Improvement % Improvement: 40 Objective Objective/Function: POSTURE: mild thoracic kyphosis PALPATION: L4-5 ,L5-S1 NEURO: denies paresthesia/tingling ,reflexes 2/3 ,L4-5,L5-S1 THORACIC ROM: flexion mod loss ,extension mod/severe ,rotation mod loss BUE: AROM LUMBAR ROM: flexion min/mod loss ,extension mod/severe pain ,side glides min loss MMT: quads/hams/hip 4/5 ,ankle 4/5 FLEXABILITY: hamstrings min tight Goals Goal 1:: Patient to be I with HEP for back Goal Progress: Goal Met Goal 2:: Patient to improve lumbar ROM for function of recovery for ADLS Goal Progress: Progressing Goal 3:: Patient to demonstrate 50% improvement with less pain and improved function Goal Progress: Goal Met Goal 4:: Patient to improve back oswestry score by 5 points to improve QOL Goal Progress: Goal Met Plan Plan: D/C TO HEP D/C Information Discharge Comments: HEP d/c sentence: If there are questions or concerns regarding this patient's physical therapy, please feel free to call me at [phone]. Thank you for the referral of this patient. Sincerely, Isrrael Johnston, PT, Cert MDT, OCS Balance/Gait/Functional tests Balance/Special Test Scores Oswestry Low Back Score: 17 Improvement % Improvement: 40
== END 2025-06-13 19:00 | disposition home or self-care (01) ==
LOC: PT 15:00
PROVIDERS: PCP Family Medicine Geriatric Medicine; Referring Provider Family Medicine Geriatric Medicine; Visit Provider Family Medicine Geriatric Medicine
DX: M47.816 Spondylosis without myelopathy or radiculopathy, lumbar region (principal); M54.14 Radiculopathy, thoracic region; M48.061 Spinal stenosis, lumbar region without neurogenic claudication; M48.02 Spinal stenosis, cervical region
CPT/HCPCS: 97110; 97162; 97530

== ENCOUNTER 2025-06-27 09:00 | Outpatient (RCR) | payer MEDICARE, OTHER, SELFPAY | END 2025-07-12 23:59 | LOC: NS 09:00 | PROVIDERS: PCP Family Medicine Geriatric Medicine; Referring Provider Family Medicine Geriatric Medicine; Visit Provider Family Medicine Geriatric Medicine | DX: Z71.3 Dietary counseling and surveillance (principal); E66.9 Obesity, unspecified; N18.31 Chronic kidney disease, stage 3a; Z68.37 Body mass index [BMI] 37.0-37.9, adult | CPT/HCPCS: 97803 ==